=== PATIENT | female | born 1940 | race Caucasian/White ===

== ENCOUNTER 2016-04-06 09:07 | Inpatient (IN) | payer OTHER ==
[~2016-04-06] VITALS: Ht 154.9 cm; Wt 47.6 kg
[~2016-04-06 09:07] MED LIST: ALTACE5 M2 PO; ASPIRIN325 M2 PO; CLOPIDOGREL75 M1 PO; COREG6.25 M1; DIAZEPAM10 MG PO; DIAZEPAM5 M1 PO; FENOFIBRATE145 M1 PO; LASIX40 M1 PO; NITROGLYCERIN1 EAC3 TOP; NORVASC 5MG TAB5 MG PO; NOVAPLUS V0.09 MG/Ac INH; PREDNISONE 20MG20 MG PO; PREDNISONE10 MG PO; PROAIR HFA8.5 GM INH; SPIRIVA18 MCG INH; SYMBICORT 16010.2 GM INH; TOPCARE ASPIRI325 MG PO; VALIUM5 M1 PO; ZITHROMAX Z-PA250 M1 PO; ZOCOR10 M1 PO
--- NOTE | 2016-04-06 09:25 | ED GENERAL ADULT ---
History of Present Illness General Chief Complaint: General Adult Stated Complaint: COUGH X 3 DAYS Source: patient Exam Limitations: no limitations Vital Signs & Intake/Output Vital Signs & Intake/Output Vital Signs Date Time Temp Pulse Resp B/P Pulse O2 O2 Flow FiO2 Ox Delivery Rate 04/06 1951 Nasal 1.0L Cannula 04/06 1804 98.2 95 20 118/70 94 Nasal 2.0L Cannula 04/06 1730 96 Nasal 2.0L Cannula 04/06 1633 97.7 96 18 143/91 96 Nasal 2.0L Cannula 04/06 1534 96 Nasal 2.0L Cannula 04/06 1316 77 16 132/60 99 Nasal 3.0L Cannula 04/06 1230 88 04/06 1158 97.8 68 20 133/58 91 Room Air 04/06 0958 91 04/06 0930 99 Room Air 04/06 0911 97.5 69 20 123/78 92 Room Air Allergies Coded Allergies: tramadol (severe cant walk 03/21/16) amoxicillin (From Augmentin) (Severe, GI DISTRESS 03/21/16) clavulanic acid (From Augmentin) (Severe, GI DISTRESS 03/21/16) Reconcile Medications Albuterol Sulfate (Proair Hfa) 0.09 MG/Actuation ANAI 2 PUFF INH PRN ASMTHA ( Reported) Alendronate Sodium 70 MG TABLET 1 TAB PO QW OSTEOPOROSIS (Reported) in the morning, at least 30 minutes before the first food, beverage, or medication of the day Amlodipine (Norvasc) 2.5 MG TABLET 2.5 MG PO BID BP (Reported) Aspirin (Aspirin*) 81 MG TAB.CHEW 81 MG PO DAILY CARDIAC (Reported) Budesonide/Formoterol Fumara (Symbicort 160-4.5 Mcg Inhaler) 160 MCG/4.5 MCG PUF 2 PUF INH BID COPD (Reported) Calcium Carbonate/Vitamin D3 (Calcium 600 + Vit D 800 Tab) 600 MG-800 TABLET 1 TAB PO DAILY OSTEOPOROSIS (Reported) Carvedilol 6.25 MG TABLET 1 TAB PO BID BP (Reported) CLOPIDOGREL BISULFATE (Clopidogrel) 75 MG TABLET 1 TAB PO DAILY BLOOD THINNER (Reported) Diazepam 5 MG TABLET 1 TAB PO BIDP PRN ANXIETY (Reported) FENOFIBRATE NANOCRYSTALLIZED (Fenofibrate) 145 MG TABLET 145 MG PO DAILY TRIGLYERIDE (Reported) Fluticasone Propionate (Flovent Hfa) 44 MCG AER.W.ADAP 2 PUF INH BID COPD ( Reported) Furosemide 40 MG TABLET 1 TAB PO DAILY FLUID (Reported) Montelukast Sodium (Singulair) 10 MG TABLET 1 TAB PO DAILY ALLERGIES ( Reported) Nitroglycerin (Nitroglycerin Patch) 0.2 MG/HOUR PATCH.TD24 0.2 MG TOP AT BEDTIME HEART (Reported) Omeprazole 20 MG CAPSULE.DR 1 CAP PO DAILY GASTRITIS (Reported) Ramipril 5 MG CAPSULE 5 MG PO DAILY UNKNOWN (Reported) Roflumilast (Daliresp) 500 MCG TABLET 1 TAB PO DAILY COPD (Reported) Simvastatin (Zocor) 20 MG TAB 10 MG PO DAILY CHLOESTEROL (Reported) Tiotropium Star[place] (Spiriva) 18 MCG CAP.W.DEV 1 CAP INH DAILY COPD (Reported) Triage Note: PT TO ED C/O "SINUSITIS/BRONCHITIS" X 3 DAYS. C/O FEVERS AT HOME, AFEBRILE NOW. C/O NON-PRODUCTIVE COUGH. Triage Nurses Notes Reviewed? yes Onset: Abrupt Duration: hour(s): Timing: recent history HPI: 04/06/16 9:33 AM 75-year-old female presents to the emergency department complaining of cough and difficulty breathing. The patient states she does use a inhaler and has a prior history of bronchitis. She says she quit smoking one week ago. She does have a past medical history of coronary artery disease she status post bypass surgery and also vascular stenting. She denies any chest pain today. She admits to cough productive of yellow sputum. The onset of the symptoms were abrupt, the duration has been 3 days, the severity is significant as her symptoms required her to come to the emergency department for care Past History Travel History Traveled to [place] past 21 day No Medical History Any Pertinent Medical History? see below for history Neurological: restless leg syndrome EENT: hearing loss Cardiovascular: hypertension, hyperlipidemia, myocardial infarction Respiratory: COPD Gastrointestinal: constipation, diverticulitis Hepatic: SLUDGE IN GALL BLADDER Renal: NONE Musculoskeletal: NONE Psychiatric: anxiety, depression Endocrine: NONE Blood Disorders: CLOTS Cancer(s): NONE FUNERAL HOME LOCATION MANAGER/Reproductive: NONE History of MRSA: No History of VRE: No History of CDIFF: No Tetanus Vaccine: 01/10/15 Surgical History Surgical History: CABG, stents Psychosocial History Who do you live with Daughter Services at Home None What is your primary language Lithuanian Tobacco Use: Quit >30 days ago ETOH Use: denies use Illicit Drug Use: denies illicit drug use Family History Family History, If Any: MOTHER Relation not specified for: FH: CVA (cerebrovascular accident) Hx Contributory? No Review of Systems Review of Systems Constitutional: Reports: chills. EENTM: Reports: nasal congestion. Respiratory: Reports: cough, short of breath. Cardiovascular: Denies: chest pain. GI: Denies: abdominal pain. Genitourinary: Reports: no symptoms. Musculoskeletal: Reports: no symptoms. Skin: Reports: no symptoms. Neurological/Psychological: Reports: no symptoms. Hematologic/Endocrine: Reports: no symptoms. Physical Exam Physical Exam General Appearance: alert, awake, anxious, mild distress Head: atraumatic, normal appearance Eyes: Bilateral: normal appearance, PERRL, EOMI. Ears, Nose, Throat: nasal congestion Neck: normal inspection, supple Respiratory: decreased breath sounds, rhonchi, wheezing Cardiovascular: regular rate/rhythm Peripheral Pulses: 4+ radial (R), 4+ radial (L) Gastrointestinal: soft, non-tender Back: normal range of motion Extremities: normal inspection, normal range of motion Neurologic/Psych: no motor/sensory deficits, awake, alert, oriented x 3 Skin: intact, normal color, warm/dry Core Measures ACS in differential dx? No CVA/TIA Diagnosis: No Severe Sepsis Present: No Septic Shock Present: No Progress Differential Diagnoses I considered the following diagnoses in my evaluation of the patient: [ Bronchitis, pneumonia, pneumothorax, CHF, COPD exacerbation] Plan of Care: Orders Procedure Date/time Status CBC WITHOUT DIFFERENTIAL 04/07 06 Active BASIC ELECTROLYTES PLUS BUN&CR 04/07 0600 Active Heart Healthy Diet 04/06 D Active RT: Reevaluation 04/06 1836 Active RT: Evaluation 04/06 183 Active Vital Signs 04/06 174 Active Teach/Educate 04/06 174 Active Nutritional Intake, Monitor 04/06 174 Active Isolation 04/06 174 Active Intake & Output 04/06 174 Active Patient Care Conference 04/06 174 Active Activity/Ambulation 04/06 1745 Active Pathway - chart 04/06 1505 Active Admit to inpatient 04/06 1453 Active Pathway - chart 04/06 1451 Active Patient Data 04/06 1451 Active Code Status 04/06 1451 Active Admit to inpatient 04/06 1329 Active Vital Signs 04/06 1329 Active Code Status 04/06 1329 Complete COMPREHENSIVE METABOLIC PANEL 04/06 1327 Complete CBC WITHOUT DIFFERENTIAL 04/06 1327 Complete EKG 04/06 1327 Active Intake & Output 04/06 0930 Active TRC EVALUATION (GEN) 04/06 UNK Complete THERAPIST ORDERS 04/06 UNK Complete OXYGEN SETUP (GEN) 04/06 UNK Complete House Staff 04/06 UNK Active VTE Mechanical Prophylaxis 04/06 UNK Active Vital Signs 04/06 UNK Active MISSING MEDICATION FORM 04/06 UNK Active Current Medications Sig/Manohar Start time Last Medication Dose Stop Time Status Admin Aspirin 81 MG DAILY 04/07 1000 AC (Aspirin) Azithromycin 250 MG DAILY 04/07 1000 AC (Zithromax) Calcium/Vitamin D 1 TAB DAILY 04/07 1000 AC (Caltrate 600 + D) Clopidogrel Bisulfate 75 MG DAILY 04/07 1000 AC (Plavix) Enoxaparin Sodium 40 MG DAILY 04/07 1000 AC (Lovenox) Fenofibrate 145 MG DAILY 04/07 1000 AC (Tricor) Furosemide 40 MG DAILY 04/07 1000 AC (Lasix) Lisinopril 10 MG DAILY 04/07 1000 AC (Prinivil) Montelukast Sodium 10 MG DAILY 04/07 1000 AC (Singulair) Omeprazole 20 MG DAILY 04/07 1000 AC (Prilosec) Tiotropium Starford 1 PUF DAILY 04/07 1000 AC (Spiriva) Amlodipine Besylate 2.5 MG BID 04/060 AC (Norvasc) Carvedilol 6.25 MG BID 04/06 2200 AC (Coreg) Diazepam 5 MG BID 04/06 2200 AC (Valium) Methylprednisolone 40 MG Q8 04/060 AC (Solumedrol) Nitroglycerin 0.2 MG AT BEDTIME 04/06 2200 AC (Transderm Nitro 5MG (0.2MG/Hr)) Atorvastatin Calcium 5 MG 1700 04/06 1700 AC (Lipitor) Acetaminophen 650 MG Q6P PRN 04/06 1515 AC (Tylenol) Laboratory Tests 04/06/16 1351: Anion Gap 11, Estimated GFR > 60, BUN/Creatinine Ratio 21.4, Glucose 100 H, Calcium 10.2, Total Bilirubin 0.6, AST 53 H, ALT 39, Alkaline Phosphatase 66, Total Protein 7.5, Albumin 4.1, Globulin 3.4, Albumin/Globulin Ratio 1.2, CBC w Diff MAN DIFF ORDERED, RBC 4.18 L, MCV 87.5, MCH 29.0, RDW 15.3 H, MPV 9.1, Gran % 85.0 H, Lymphocytes % 10.0 L, Monocytes % 3.4, Eosinophils % 0.6, Basophils % 1.0, Absolute Granulocytes 3.2, Absolute Lymphocytes 0.4 L, Absolute Monocytes 0.1 L, Absolute Eosinophils 0, Absolute Basophils 0, Platelet Estimate VERIFIED BY SMEAR, Anisocytosis 1+, PUBS MCHC 33.1 CXR Impression: no infiltrates Initial ED EKG: nonspecific ST T wave chg Departure Departure Disposition: HOME OR SELF CARE Condition: Stable Clinical Impression Primary Impression: Bronchitis Referrals: COURTNEY NEW MD (PCP/Family) Referred to [facility] as new patient No Departure Forms: Customer Survey General Discharge Information Comments 04/06/16 1:30 PM The patient has ongoing wheezing and rhonchi. Oxygen saturation is only 90% on room air. She dropped to 88% on room air on initial presentation. She's being admitted for COPD. Chest x-ray shows no pneumonia PATIENT: SENA TAY PRESENT AGE: 75 PATIENT ACCOUNT NO: [id number] : 41 LOCATION: [facility] ORDERING PHYSICIAN: BHUPENDRA AYON DO SERVICE DATE: 04/06/16 EXAM TYPE: RAD - XRY-PORTABLE CHEST XRAY EXAMINATION: XR PORTABLE CHEST CLINICAL INFORMATION: Shortness of breath. Rule out pneumonia. COMPARISON: Chest radiograph dated 02/05/2015. CT chest dated 02/27/2016. TECHNIQUE: Portable view of the chest was obtained. FINDINGS: Sternotomy sutures appear intact. The aortic knob is severely calcified. Cardiac silhouette appears stable in size. The right lung is clear. There is a hazy opacity overlying the left lower lung. There is no pleural effusion. There is no pneumothorax. IMPRESSION: There is a hazy opacity at the left lower lung. This may correspond to the masslike opacity seen on chest CT dated 03/01/2016. Superimposed infection cannot be excluded. No pneumothorax. No pleural effusion. DICTATED BY: HYUN NEWBY MD DATE/TIME DICTATED:04/06/161039 DYE HOUSE WHEEL OPERATOR:MELITON DATE/TIME TRANSCRIBED:04/06/161039 CONFIDENTIAL, DO NOT COPY WITHOUT APPROPRIATE AUTHORIZATION. <Electronically signed in Other Vendor System> SIGNED BY: HYUN NEWBY MD 04/06/161046 Admission Note Spoke With: HUMAIRA ARNOLD MD Documentation of Exam: Documentation of any treatments & extenuating circumstances including Concerns Regarding Discharge (functional status, medication knowledge or non-compliance, living conditions, etc.) that warrant an admission rather than observation: [She needs admission for oxygen therapy, and albuterol and Atrovent nebulizers every 4 hours, IV steroids, IV antibiotics] Critical Care Note Critical Care Note Critical Care Time: non-applicable
--- NOTE | 2016-04-06 10:47 | RADIOLOGY REPORT ---
EXAMINATION: XR PORTABLE CHEST CLINICAL INFORMATION: Shortness of breath. Rule out pneumonia. COMPARISON: Chest radiograph dated 02/05/2015. CT chest dated 02/27/2016. TECHNIQUE: Portable view of the chest was obtained. FINDINGS: Sternotomy sutures appear intact. The aortic knob is severely calcified. Cardiac silhouette appears stable in size. The right lung is clear. There is a hazy opacity overlying the left lower lung. There is no pleural effusion. There is no pneumothorax. IMPRESSION: There is a hazy opacity at the left lower lung. This may correspond to the masslike opacity seen on chest CT dated 03/01/2016. Superimposed infection cannot be excluded. No pneumothorax. No pleural effusion.
[2016-04-06] MEDS ORDERED: NORVASC2.5 M1 PO (10:58)
[2016-04-06] MEDS ORDERED: ASPIRIN81 M4 PO (10:59)
[2016-04-06 14:09] LABS: ABSOLUTE BASOPHIL COUNT 0 /CUMM (0.0-0.2); ABSOLUTE EOSINOPHIL COUNT 0 /CUMM (0.0-0.7); ABSOLUTE GRANULOCYTE CT 3.2 /CUMM (1.4-6.5); ABSOLUTE LYMPH COUNT 0.4 /CUMM (1.2-3.4); ABSOLUTE MONOCYTE COUNT 0.1 /CUMM (0.10-0.60); EOSINOPHIL % 0.6 % (0-5); HEMATOCRIT 36.6 % (37-47); MEAN CORPUSCULAR HGB CONC 33.1 G/DL (33.0-37.0); MEAN CORPUSCULAR VOLUME 87.5 FL (81.0-99.0); MEAN PLATELET VOLUME 9.1 FL (7.4-10.4); PLATELET COUNT 197 /CUMM (130-400); RBC DISTRIBUTION WIDTH 15.3 % (11.5-14.5); RED BLOOD CELL CT 4.18 /CUMM (4.20-5.40); WHITE BLOOD CELL COUNT 3.8 /CUMM (4.8-10.8)
--- NOTE | 2016-04-06 14:42 | History & Physical ---
DANDY ESCOBAR,[facility] 04/06/16 1442: General Information and HPI MD Statement: I have seen and personally examined SENA TAY and documented this H&P. The patient is a 75 year old F who presented with a patient stated chief complaint of [coughing]. Source of Information: patient Exam Limitations: no limitations History of Present Illness: Patient is a 75-year-old lady who came to the ED with worsening cough during the past 3 days. Patient reports that she started to feel sick more than a week ago with feelings of sinus pressure and headache, also reported sick contacts and says 'everyone is sick around her'. 3 days ago she has started to have coughing with some phlegm but mostly a dry cough. Reports fevers and chills at the beginning but currently denies fever. Patient denies shortness of breath, sore throat, ear pain or discharge. She reports that she quit smoking about a week ago. Also that almost 2 years ago she had similar symptoms (coughing) accompanied by wheezing requiring hospitalization. Patient denies any difficulty swallowing, changes in bowel habits, changes in the urine. Patient reports history of colon resection for diverticulitis 2 years ago, she mentions that she is constipated most of the time. Of note patient has allergies to erythromycin and gets diarrhea but no anaphylactic reaction or rash. Her past medical history is also significant for femoro-iliac bypass grafts many years ago. Allergies/Medications Allergies: Coded Allergies: tramadol (severe cant walk 03/21/16) amoxicillin (From Augmentin) (Severe, GI DISTRESS 03/21/16) clavulanic acid (From Augmentin) (Severe, GI DISTRESS 03/21/16) Home Med list Albuterol Sulfate (Proair Hfa) 0.09 MG/Actuation ANAI 2 PUFF INH PRN ASMTHA ( Reported) Alendronate Sodium 70 MG TABLET 1 TAB PO QW OSTEOPOROSIS (Reported) in the morning, at least 30 minutes before the first food, beverage, or medication of the day Amlodipine (Norvasc) 2.5 MG TABLET 2.5 MG PO BID BP (Reported) Aspirin (Aspirin*) 81 MG TAB.CHEW 81 MG PO DAILY CARDIAC (Reported) Budesonide/Formoterol Fumara (Symbicort 160-4.5 Mcg Inhaler) 160 MCG/4.5 MCG PUF 2 PUF INH BID COPD (Reported) Calcium Carbonate/Vitamin D3 (Calcium 600 + Vit D 800 Tab) 600 MG-800 TABLET 1 TAB PO DAILY OSTEOPOROSIS (Reported) Carvedilol 6.25 MG TABLET 1 TAB PO BID BP (Reported) CLOPIDOGREL BISULFATE (Clopidogrel) 75 MG TABLET 1 TAB PO DAILY BLOOD THINNER (Reported) Diazepam 5 MG TABLET 1 TAB PO BIDP PRN ANXIETY (Reported) FENOFIBRATE NANOCRYSTALLIZED (Fenofibrate) 145 MG TABLET 145 MG PO DAILY TRIGLYERIDE (Reported) Fluticasone Propionate (Flovent Hfa) 44 MCG AER.W.ADAP 2 PUF INH BID COPD ( Reported) Furosemide 40 MG TABLET 1 TAB PO DAILY FLUID (Reported) Montelukast Sodium (Singulair) 10 MG TABLET 1 TAB PO DAILY ALLERGIES ( Reported) Nitroglycerin (Nitroglycerin Patch) 0.2 MG/HOUR PATCH.TD24 0.2 MG TOP AT BEDTIME HEART (Reported) Omeprazole 20 MG CAPSULE.DR 1 CAP PO DAILY GASTRITIS (Reported) Ramipril 5 MG CAPSULE 5 MG PO DAILY UNKNOWN (Reported) Roflumilast (Daliresp) 500 MCG TABLET 1 TAB PO DAILY COPD (Reported) Simvastatin (Zocor) 20 MG TAB 10 MG PO DAILY CHLOESTEROL (Reported) Tiotropium Raccoon (Spiriva) 18 MCG CAP.W.DEV 1 CAP INH DAILY COPD (Reported) Compliance With Home Meds: GOOD Past History Travel History Traveled to [place] past 21 day No Medical History Neurological: restless leg syndrome EENT: hearing loss Cardiovascular: hypertension, hyperlipidemia, myocardial infarction Respiratory: COPD Gastrointestinal: constipation, diverticulitis Hepatic: SLUDGE IN GALL BLADDER Renal: NONE Musculoskeletal: NONE Psychiatric: anxiety, depression Endocrine: NONE Blood Disorders: CLOTS Cancer(s): NONE PIE MAKER MACHINE/Reproductive: NONE History of MRSA: No History of VRE: No History of CDIFF: No Tetanus Vaccine: 01/10/15 Surgical History Surgical History: CABG, stents Past Family/Social History Family History Relations & Conditions if any MOTHER Relation not specified for: FH: CVA (cerebrovascular accident) Psychosocial History Services at Home: None ETOH Use: denies use Illicit Drug Use: denies illicit drug use Review of Systems Review of Systems Constitutional: Denies: chills, diaphoresis, fever, malaise, weakness. EENTM: Denies: visual changes, ear discharge, ear pain, ear redness, hearing changes, throat pain, throat swelling. Cardiovascular: Denies: chest pain, edema, orthopena, palpitations, peripheral edema, syncope. Respiratory: Reports: cough, sputum production. Denies: hemoptysis, orthopnea, short of breath, stridor, wheezing. GI: Denies: abdominal pain, bloating, constipation, diarrhea, distention, nausea, bloody stool, changes in stool, vomiting. Genitourinary: Denies: discharge, dysuria, frequency, hematuria, hesitation, nocturia, pain. Musculoskeletal: Denies: back pain, joint pain, joint swelling, muscle pain. Skin: Denies: dryness, erythema, jaundice, lesions, rash. Neurological/Psychological: Reports: headache. Denies: anxiety, ataxia, confusion, depressed, dementia, numbness, paresthesia, tingling, tremors, weakness. Hematologic/Endocrine: Denies: bruising, bleeding, polyuria, polydipsia. Exam & Diagnostic Data Last 24 Hrs of Vital Signs/I&O Vital Signs Date Time Temp Pulse Resp B/P Pulse O2 O2 Flow FiO2 Ox Delivery Rate 04/06 1951 Nasal 1.0L Cannula 04/06 1804 98.2 95 20 118/70 94 Nasal 2.0L Cannula 04/06 1730 96 Nasal 2.0L Cannula 04/06 1633 97.7 96 18 143/91 96 Nasal 2.0L Cannula 04/06 1534 96 Nasal 2.0L Cannula 04/06 1316 77 16 132/60 99 Nasal 3.0L Cannula 04/06 1230 88 04/06 1158 97.8 68 20 133/58 91 Room Air 04/06 0958 91 04/06 0930 99 Room Air 04/06 0911 97.5 69 20 123/78 92 Room Air Intake & Output 04/06 1600 04/06 0800 04/06 0000 Intake Total Output Total Balance Patient 47.627 kg Weight Physical Exam General Appearance Alert, Oriented X3, Cooperative, No Acute Distress Skin No Rashes, No Breakdown, No Significant Lesion HEENT Atraumatic, PERRLA, EOMI, Mucous Membr. moist/pink Neck Supple, No JVD Cardiovascular Regular Rate, Normal S1, Normal S2, 2/6 holosystolic ejection murmurbest heard at the aortic area Lungs decreased breath sounds, bilateral and diffuse rhonchi, improved after coughing Abdomen Normal Bowel Sounds, Soft, No Tenderness Neurological Normal Speech, Strength at 5/5 X4 Ext, Normal Tone, Sensation Intact, Cranial Nerves 3-12 NL Extremities No Clubbing, No Cyanosis, No Edema, Normal Pulses, No Tenderness/ Swelling Vascular Normal Pulses, Pulses Symmetrical Last 24 Hrs of Labs/Hernandez: Laboratory Tests 04/06/16 1351: Anion Gap 11, Estimated GFR > 60, BUN/Creatinine Ratio 21.4, Glucose 100 H, Calcium 10.2, Total Bilirubin 0.6, AST 53 H, ALT 39, Alkaline Phosphatase 66, Total Protein 7.5, Albumin 4.1, Globulin 3.4, Albumin/Globulin Ratio 1.2, CBC w Diff MAN DIFF ORDERED, RBC 4.18 L, MCV 87.5, MCH 29.0, RDW 15.3 H, MPV 9.1, Gran % 85.0 H, Lymphocytes % 10.0 L, Monocytes % 3.4, Eosinophils % 0.6, Basophils % 1.0, Absolute Granulocytes 3.2, Absolute Lymphocytes 0.4 L, Absolute Monocytes 0.1 L, Absolute Eosinophils 0, Absolute Basophils 0, Platelet Estimate VERIFIED BY SMEAR, Anisocytosis 1+, PUBS MCHC 33.1 Assessment/Plan Assessment: Patient is a 75-year-old 81 with past medical history of COPD, CAD status post bypass and stent placed, hypertension, hyperlipidemia, anxiety and depression who came to the ED with 3 days of worsening her coughs. Patient had similar episode 2 years ago and was hospitalized, possibly with COPD exacerbation. Vital signs in the ED included T of 97.5, AR 69, RR 20, saturating on 2 L per nasal cannula, blood pressure of 123/78 Lab findings; WBC 3.8, H&H 12.1/36.6, platelet 197, sodium 138, potassium 3.8, creatinine 0.7, mildly elevated AST of 53 Chest x-ray reported a hazy opacity at the left lower lung, corresponding to the masslike opacity seen on chest CT dated 03/01/2016. Superimposed infection could not be excluded. No pneumothorax. No pleural effusion. Problem list and plan: Acute COPD exacerbation * PO Azithromycin * IV Solu-Medrol 40 mg every 8 IV * TRC nebs * Pulmonary consult, patient routinely sees Dr. Gutierrez * Benzonatate 100 mg 3 times a day History of CAD * Aspirin 81 mg daily * Atorvastatin 5 mg daily * Carvedilol 6.25 mg twice a day by mouth * Nitroglycerin 0.2 mg History of hypertension * Amlodipine 2.5 mg by mouth twice a day * Lisinopril 10 mg daily History of hyperlipidemia * Atorvastatin 5 mg daily * Fenofibrate 145 mg daily History of GERD * Omeprazole 20 daily Pain * Mild pain pathway: Tylenol every 6 when necessary DVT prophylaxis * Subcutaneous Lovenox Diet * Heart healthy Full code As Ranked By This Provider Problem List: 1. History of COPD 2. Acute exacerbation of chronic obstructive pulmonary disease (COPD) 3. Hypertension 4. Hyperlipidemia 5. GERD (gastroesophageal reflux disease) 6. CAD (coronary artery disease) Core Measures/Miscellaneous Acute Coronary Syndrome ACS Diagnosis: No Cerebrovascular Accident CVA/TIA Diagnosis: No Congestive Heart Failure CHF Diagnosis: No Venous Thromboembolism VTE Risk Factors: Acute medical illness, Age > 40 VTE Prophylaxis Ordered Inpt: [facility]- [facility] prophylaxis d/t: No contraindications No VTE Pharm Prophylaxis d/t: No contraindications VTE Diagnosis: No VTE Type: NONE VTE Confirmed by (Test): NONE Severe Sepsis Severe Sepsis Present: No Septic Shock Septic Shock Present: No Miscellaneous Documentation Attending Case Discussed With: FAISAL ESCOBAR,[facility] Primary Care Physician: COURTNEY NEW MD Patient sees these Specialists Dr. Gutierrez (repair mechanic) Patient also has a cardiology and vascular surgeon in [place]. Level of Patient Care: General Medicine MADELIN WHITAKER MD 04/06/16 7882: Resident Review Statement Resident Statement: examined this patient, discussed with internet webmaster, agreed with internet webmaster Other Findings: This is a 75 year old woman with a PMH of CAD s/p CABG, HTN, HLD, COPD not on home oxygen, Anxiety, Depression who presents to the ED with c/o cough increased over the last 3 days. According to the patient, she started to have URI symptoms including sinus pressure and headaches. She started to have increased non- productive cough over the last 3 days. She denies any fevers, abdominal pain, urinary or bowel symptoms over the same period of time. She reports everyone around her is sick. She quit smoking 1 week ago. In the ED: Vitals: 97.8/68-77/16/132/60/99% on 3L Physical exam: Pertinent positives: Decreased breath sound bilaterally, scattered wheezing and rhonchi heard. Labs: CO2: 32 Problem List: * COPD exacerbation * CAD s/p CABG * HTN * HLD * Osteoporosis Plan: * Admit to general medicine for COPD exacerbation * Start IV solumedrol 40 Q8 and PO Azithromycin * Continue other home medications. * Pulm consult (patient sees Dr. Gutierrez on the outside) * Pain management: Tylenol PRN * DVT PPx: SubQ Lovenox * Code Status: Full Code FAISAL ESCOBAR,[facility] 04/08/16 1520: Attending MD Review Statement Attending Statement Attending MD Statement: examined this patient, discuss w/resident/PA/SPECIAL TECHNICAL OPERATIONS OFFICER, agreed w/resident/PA/SPECIAL TECHNICAL OPERATIONS OFFICER Attending Assessment/Plan: This is a 75 year old woman with a PMH of CAD s/p CABG, HTN, HLD, COPD not on home oxygen, Anxiety, Depression who presents to the ED with c/o cough and shortness of breath. She is currently requiring oxygen. However her WBC count is normal and chest x-ray is negative for pneumonia. Plan is to admit for COPD exacerbation. We will start patient on IV Solu-Medrol and IV azithromycin. Patient follows up with Dr. Gutierrez for lung issues and we will inform Dr. Gutierrez.
[2016-04-06] MEDS ORDERED: FLOVENT HFA10.6 GM INH (14:56)
[2016-04-06] MEDS ORDERED: DALIRESP500 MC1 PO (14:56)
[2016-04-06] MEDS ORDERED: SINGULAIR10 M1 PO (14:56)
[2016-04-06] MEDS ORDERED: ALENDRONATE SOD70 M2 PO (14:56)
[2016-04-06] MEDS ORDERED: OMEPRAZOLE20 M2 PO (14:57)
[2016-04-06] MEDS ORDERED: CALCIUM 600 +1 EAC7 PO (14:57)
[2016-04-06 18:04] VITALS: BP 118/70
[2016-04-06 22:32] VITALS: BP 124/60
[2016-04-07 06:09] VITALS: BP 112/52
[2016-04-07 06:38] VITALS: BP 112/52
[2016-04-07 08:08] LABS: ABSOLUTE BASOPHIL COUNT 0 /CUMM (0.0-0.2); ABSOLUTE EOSINOPHIL COUNT 0 /CUMM (0.0-0.7); ABSOLUTE GRANULOCYTE CT 3.3 /CUMM (1.4-6.5); ABSOLUTE LYMPH COUNT 0.4 /CUMM (1.2-3.4); ABSOLUTE MONOCYTE COUNT 0.1 /CUMM (0.10-0.60); BASOPHIL % 0 % (0.0-2.0); EOSINOPHIL % 0.1 % (0-5); GRANULOCYTE % 85.6 % (42.2-75.2); HEMATOCRIT 33.4 % (37-47); MEAN CORPUSCULAR HGB 29.3 PG (27.0-31.0); MEAN CORPUSCULAR HGB CONC 33.4 G/DL (33.0-37.0); MEAN CORPUSCULAR VOLUME 87.8 FL (81.0-99.0); MEAN PLATELET VOLUME 9.5 FL (7.4-10.4); PLATELET COUNT 200 /CUMM (130-400); RBC DISTRIBUTION WIDTH 14.7 % (11.5-14.5)
[2016-04-07 09:21] LABS: WHITE BLOOD CELL COUNT 3.9 /CUMM (4.8-10.8)
--- NOTE | 2016-04-07 11:12 | Admission Certification ---
Admission Certification Certification Statement - As attending physician, I certify that at the time of - admission, based on clinical presentation, severity of - symptoms, need for further diagnostic testing and - therapeutic interventions, and risk of adverse outcomes - without in-hospital treatment, in my clinical assessment, - this patient requires an acute hospital stay for a minimum - of two nights or longer. I have also considered psychsocial - factors such as support system, advanced age, financial - issues, cognitive issues, and failed out-patient treatments, - past re-admission history, safety of patient, and lack of - compliance as applicable. Specific rationale supporting this admission is: COPD exacerbation
--- NOTE | 2016-04-07 11:14 | PN- Housestaff ---
Subjective Follow-up For: COPD Subjective: Saw pt at bedside thi AM. She was sitting up in chair at bedside on . She stated that she did feel better but that she spent the whole night coughing. Review of Systems Constitutional: Denies: chills, fever, weakness. EENTM: Reports: no symptoms. Cardiovascular: Reports: no symptoms. Denies: chest pain, palpitations. Respiratory: Reports: cough, short of breath. Denies: wheezing. Gastrointestinal: Reports: no symptoms. Genitourinary: Reports: no symptoms. Musculoskeletal: Reports: no symptoms. Objective Last 24 Hrs of Vital Signs/I&O Vital Signs Date Time Temp Pulse Resp B/P Pulse O2 O2 Flow FiO2 Ox Delivery Rate 04/07 1034 112/52 04/07 0830 93 Nasal 1.0L Cannula 04/07 08 93 Nasal 1.0L Cannula 04/07 0638 98.7 63 20 112/52 91 04/07 0609 98.7 91 20 112/52 91 04/07 0000 94 Nasal 1.0L Cannula 04/06 2232 98.4 64 20 124/60 94 04/06 2111 82 120/68 04/06 2111 82 120/68 04/06 1951 Nasal 1.0L Cannula 04/06 1804 98.2 95 20 118/70 94 Nasal 2.0L Cannula 04/06 1730 96 Nasal 2.0L Cannula 04/06 1633 97.7 96 18 143/91 96 Nasal 2.0L Cannula 04/06 1534 96 Nasal 2.0L Cannula 04/06 1316 77 16 132/60 99 Nasal 3.0L Cannula 04/06 1230 88 04/06 1158 97.8 68 20 133/58 91 Room Air Intake & Output 04/07 1600 04/07 0800 04/07 0000 Intake Total 200 480 Output Total Balance 200 480 Intake, Oral 200 480 Patient 47.627 kg Weight Physical Exam General Appearance: Alert, Oriented X3, Cooperative, No Acute Distress Skin: No Rashes, No Breakdown, No Significant Lesion HEENT: Atraumatic, PERRLA, EOMI Neck: Supple Cardiovascular: Regular Rate, Normal S1, Normal S2 Lungs: crakles, but improved from yesterday. Abdomen: Soft, No Tenderness Current Medications: Current Medications Sig/Manohar Start time Last Medication Dose Route Stop Time Status Admin Acetaminophen 650 MG Q6P PRN 04/06 1515 AC PO Albuterol Sulfate 3 ML EVERY 4 HRS/AWAKE 04/06 2000 AC 04/07 INH 0745 Albuterol Sulfate 3 ML ONCE ONE 04/06 1330 DC 04/06 INH 04/06 1331 1534 Albuterol Sulfate 3 ML ONCE ONE 04/06 1215 DC 04/06 INH 04/06 1216 1230 Amlodipine Besylate 2.5 MG BID 04/06 2200 AC 04/07 PO 1036 Aspirin 81 MG DAILY 04/07 1000 AC 04/07 PO 1035 Atorvastatin Calcium 5 MG 1700 04/06 1700 AC 04/06 PO 2204 Azithromycin 250 MG DAILY 04/07 1000 AC 04/07 PO 1037 Azithromycin 0 .STK-MED ONE 04/06 1715 DC PO Azithromycin 500 MG ONCE ONE 04/06 1500 DC 04/06 PO 04/06 1501 1720 Benzonatate 100 MG TID 04/06 1600 AC 04/07 PO 1036 Calcium/Vitamin D 1 TAB DAILY 04/07 1000 AC 04/07 PO 1034 Carvedilol 6.25 MG BID 04/06 2200 AC 04/07 PO 1034 Clopidogrel Bisulfate 75 MG DAILY 04/07 1000 AC 04/07 PO 1035 Diazepam 5 MG BID 04/06 2200 AC 04/06 PO 2112 Enoxaparin Sodium 40 MG DAILY 04/07 1000 AC SC Fenofibrate 145 MG DAILY 04/07 1000 AC 04/07 PO 1036 Furosemide 40 MG DAILY 04/07 1000 AC 04/07 PO 1035 Ipratropium [place] 2.5 ML ONCE ONE 04/06 1330 DC 04/06 INH 04/06 1331 1534 Ipratropium [place] 2.5 ML ONCE ONE 04/06 1215 DC 04/06 INH 04/06 1216 1229 Lisinopril 10 MG DAILY 04/07 1000 AC 04/07 PO 1035 Methylprednisolone 40 MG Q8 04/06 2200 AC 04/07 IV 0509 Montelukast Sodium 10 MG DAILY 04/07 1000 AC 04/07 PO 1036 Nitroglycerin 0.2 MG AT BEDTIME 04/06 2200 AC 04/06 TOP 2111 Omeprazole 20 MG DAILY 04/07 1000 AC 04/07 PO 1035 Tiotropium [place] 1 PUF DAILY 04/07 1000 AC INH Last 24 Hrs of Lab/Hernandez Results Last 24 Hrs of Labs/Mics: Laboratory Tests 04/07/16 0640: Anion Gap 11, Estimated GFR > 60, BUN/Creatinine Ratio 28.6 H, CBC w Diff NO MAN DIFF REQ, RBC 3.80 L, MCV 87.8, MCH 29.3, RDW 14.7 H, MPV 9.5, Gran % 85.6 H, Lymphocytes % 11.5 L, Monocytes % 2.8, Eosinophils % 0.1, Basophils % 0 L, Absolute Granulocytes 3.3, Absolute Lymphocytes 0.4 L, Absolute Monocytes 0.1 L, Absolute Eosinophils 0, Absolute Basophils 0, PUBS MCHC 33.4 04/06/16 1351: Anion Gap 11, Estimated GFR > 60, BUN/Creatinine Ratio 21.4, Glucose 100 H, Calcium 10.2, Total Bilirubin 0.6, AST 53 H, ALT 39, Alkaline Phosphatase 66, Total Protein 7.5, Albumin 4.1, Globulin 3.4, Albumin/Globulin Ratio 1.2, CBC w Diff MAN DIFF ORDERED, RBC 4.18 L, MCV 87.5, MCH 29.0, RDW 15.3 H, MPV 9.1, Gran % 85.0 H, Lymphocytes % 10.0 L, Monocytes % 3.4, Eosinophils % 0.6, Basophils % 1.0, Absolute Granulocytes 3.2, Absolute Lymphocytes 0.4 L, Absolute Monocytes 0.1 L, Absolute Eosinophils 0, Absolute Basophils 0, Platelet Estimate VERIFIED BY SMEAR, Anisocytosis 1+, PUBS MCHC 33.1 Assessment/Plan Assessment: Patient is a 75-year-old 81 with past medical history of COPD, CAD status post bypass and stent placed, hypertension, hyperlipidemia, anxiety and depression who came to the ED with 3 days of worsening her coughs. Patient had similar episode 2 years ago and was hospitalized, possibly with COPD exacerbation. Chest x-ray reported a hazy opacity at the left lower lung, corresponding to the masslike opacity seen on chest CT dated 03/01/2016. Superimposed infection could not be excluded. No pneumothorax. No pleural effusion. Acute COPD exacerbation: Pt is satting 88-90 RA; she is currently satting on 4L O2. Current smoker * STOP PO Azithromycin * PO prednisone tomorrow. * TRC nebs * Benzonatate 100 mg 3 times a day * Pending rapid flu * Slow 20 day taper of steroids History of CAD * Aspirin 81 mg daily * Atorvastatin 5 mg daily * Carvedilol 6.25 mg twice a day by mouth * Nitroglycerin 0.2 mg History of hypertension * Amlodipine 2.5 mg by mouth twice a day * Lisinopril 10 mg daily History of hyperlipidemia * Atorvastatin 5 mg daily * Fenofibrate 145 mg daily History of GERD * Omeprazole 20 daily Subcutaneous Lovenox Heart healthy Full code Problem List: 1. History of COPD 2. Obstructive chronic bronchitis with exacerbation 3. COPD (chronic obstructive pulmonary disease) 4. CAD (coronary artery disease) Pain Ratin Pain Location: none Pain Goal: Remain pain free Pain Plan: none Tomorrow's Labs & Rationales: none
--- NOTE | 2016-04-07 11:14 | PN- Att Addend ---
Attending Addendum Attending Brief Note Patient seen and examined. Plan of care discussed with the medical team and the patient. Available lab work and radiology test reports were reviewed. Patient is sitting in chair. She continues to have coughing and the yellow phlegm production. Denies any chest pain fever chills overnight. Vital Signs Date Time Temp Pulse Resp B/P Pulse O2 O2 Flow FiO2 Ox Delivery Rate 04/07 1034 112/52 04/07 0830 93 Nasal 1.0L Cannula 04/07 0800 93 Nasal 1.0L Cannula 04/07 0638 98.7 63 20 112/52 91 04/07 0609 98.7 91 20 112/52 91 04/07 0000 94 Nasal 1.0L Cannula 04/06 2232 98.4 64 20 124/60 94 04/06 2111 82 120/68 04/06 2111 82 120/68 04/06 1951 Nasal 1.0L Cannula 04/06 1804 98.2 95 20 118/70 94 Nasal 2.0L Cannula 04/06 1730 96 Nasal 2.0L Cannula 04/06 1633 97.7 96 18 143/91 96 Nasal 2.0L Cannula 04/06 1534 96 Nasal 2.0L Cannula 04/06 1316 77 16 132/60 99 Nasal 3.0L Cannula 04/06 1230 88 04/06 1158 97.8 68 20 133/58 91 Room Air Intake & Output 04/07 1600 04/07 0800 04/07 0000 Intake Total 200 480 Output Total Balance 200 480 Intake, Oral 200 480 Patient 105 lb Weight Exam: General: Patient awake alert oriented without any distress CVS: S1 plus S2 without any murmur or gallops Chest: Few scattered crepitation without any wheeze. There is no respiratory distress. 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 alert oriented without any focal neuro deficit and follows command appropriately Extremities: No edema; no clubbing or cyanosis noted Laboratory Tests 04/07 04/06 0640 1351 Chemistry Sodium (137 - 145 mmol/L) 134 L 138 Potassium (3.5 - 5.1 mmol/L) 4.2 3.8 Chloride (98 - 107 mmol/L) 91 L 95 L Carbon Dioxide (22 - 30 mmol/L) 33 H 32 H Anion Gap (5 - 16) 11 11 BUN (7 - 17 mg/dL) 20 H 15 Creatinine (0.5 - 1.0 mg/dL) 0.7 0.7 Estimated GFR (>60 ml/min) > 60 > 60 BUN/Creatinine Ratio (7 - 25 %) 28.6 H 21.4 Glucose (65 - 99 mg/dL) 100 H Calcium (8.4 - 10.2 mg/dL) 10.2 Total Bilirubin (0.2 - 1.3 mg/dL) 0.6 AST (14 - 36 U/L) 53 H ALT (9 - 52 U/L) 39 Alkaline Phosphatase (<127 U/L) 66 Total Protein (6.3 - 8.2 g/dL) 7.5 Albumin (3.5 - 5.0 g/dL) 4.1 Globulin (1.9 - 4.2 gm/dL) 3.4 Albumin/Globulin Ratio (1.1 - 2.2 %) 1.2 Hematology CBC w Diff NO MAN DIFF REQ MAN DIFF ORDERED WBC (4.8 - 10.8 /CUMM) 3.9 L 3.8 L RBC (4.20 - 5.40 /CUMM) 3.80 L 4.18 L Hgb (12.0 - 16.0 G/DL) 11.1 L 12.1 Hct (37 - 47 %) 33.4 L 36.6 L MCV (81.0 - 99.0 FL) 87.8 87.5 MCH (27.0 - 31.0 PG) 29.3 29.0 RDW (11.5 - 14.5 %) 14.7 H 15.3 H Plt Count (130 - 400 /CUMM) 200 197 MPV (7.4 - 10.4 FL) 9.5 9.1 Gran % (42.2 - 75.2 %) 85.6 H 85.0 H Lymphocytes % (20.5 - 51.1 %) 11.5 L 10.0 L Monocytes % (1.7 - 9.3 %) 2.8 3.4 Eosinophils % (0 - 5 %) 0.1 0.6 Basophils % (0.0 - 2.0 %) 0 L 1.0 Absolute Granulocytes (1.4 - 6.5 /CUMM) 3.3 3.2 Absolute Lymphocytes (1.2 - 3.4 /CUMM) 0.4 L 0.4 L Absolute Monocytes (0.10 - 0.60 /CUMM) 0.1 L 0.1 L Absolute Eosinophils (0.0 - 0.7 /CUMM) 0 0 Absolute Basophils (0.0 - 0.2 /CUMM) 0 0 Platelet Estimate (ADEQUATE) VERIFIED BY SMEAR Anisocytosis 1+ PUBS MCHC (33.0 - 37.0 G/DL) 33.4 33.1 Assessment/ Problem List: * COPD exacerbation * CAD s/p CABG * HTN * HLD * Osteoporosis * Mild hyponatremia plan * Continue Solu-Medrol and azithromycin * Pulmonary consult with Dr. Gutierrez * Taper oxygen * Increase ambulation and check O2 saturation on ablation * Possible discharge tomorrow
--- NOTE | 2016-04-07 11:31 | Cons- Pulmonary ---
General Information and HPI Consulting Request Date of Consult: 04/07/16 Requested By: Med team History of Present Illness: Patient is a 75-year-old lady who came to the ED with worsening cough during the past 3 days. Patient reports that she started to feel sick more than a week ago with feelings of sinus pressure and headache, almost reported sick contacts ' everyone around her'. She is 3 days ago she has started to have coughing with some phlegm which has been more of a dry eyes since 2 days ago. Reports fevers and chills at the beginning but currently denies fever. Patient denies shortness of breath, sore throat, ear pain or discharge. She reports that she quit smoking about a week ago. Also that almost 2 years ago she had similar symptoms requiring hospitalization. Patient denies any difficulty swallowing, changes in bowel habits, changes in the urine. Patient reports history of colon resection for diverticulitis 2 years ago, she mentions that she is constipated most of the time. Of note patient has allergies to erythromycin and he gets diarrhea but no anaphylactic reaction or rash. Her past medical history is also significant for femerol and iliac bypass grafts. Unfortunately patient has been smoking up until recently. She also has a lung nodule/mass which appears to be rounded atelectasis in the PET scan has been unrevealing which is being monitored with serial CAT scan in the last CAT scan was done in February. She has very terminal COPD with FEV1 of 0.6 L and she is not a candidate for invasive procedures. Constitutional: Denies: chills, diaphoresis, fever, malaise, weakness. EENTM: Denies: visual changes, ear discharge, ear pain, ear redness, hearing changes, throat pain, throat swelling. Cardiovascular: Denies: chest pain, edema, orthopena, palpitations, peripheral edema, syncope. Respiratory: Reports: cough, sputum production. Denies: hemoptysis, orthopnea, short of breath, stridor, wheezing. GI: Denies: abdominal pain, bloating, constipation, diarrhea, distention, nausea, bloody stool, changes in stool, vomiting. Genitourinary: Denies: discharge, dysuria, frequency, hematuria, hesitation, nocturia, pain. Musculoskeletal: Denies: back pain, joint pain, joint swelling, muscle pain. Skin: Denies: dryness, erythema, jaundice, lesions, rash. Neurological/Psychological: Reports: headache. Denies: anxiety, ataxia, confusion, depressed, dementia, numbness, paresthesia, tingling, tremors, weakness. Hematologic/Endocrine: Denies: bruising, bleeding, polyuria, polydipsia. Allergies/Medications Allergies: Coded Allergies: tramadol (severe cant walk 03/21/16) amoxicillin (From Augmentin) (Severe, GI DISTRESS 03/21/16) clavulanic acid (From Augmentin) (Severe, GI DISTRESS 03/21/16) Home Med List: Albuterol Sulfate (Proair Hfa) 0.09 MG/Actuation ANAI 2 PUFF INH PRN ASMTHA ( Reported) Alendronate Sodium 70 MG TABLET 1 TAB PO QW OSTEOPOROSIS (Reported) in the morning, at least 30 minutes before the first food, beverage, or medication of the day Amlodipine (Norvasc) 2.5 MG TABLET 2.5 MG PO BID BP (Reported) Aspirin (Aspirin*) 81 MG TAB.CHEW 81 MG PO DAILY CARDIAC (Reported) Budesonide/Formoterol [place] (Symbicort 160-4.5 Mcg Inhaler) 160 MCG/4.5 MCG PUF 2 PUF INH BID COPD (Reported) Calcium Carbonate/Vitamin D3 (Calcium 600 + Vit D 800 Tab) 600 MG-800 TABLET 1 TAB PO DAILY OSTEOPOROSIS (Reported) Carvedilol 6.25 MG TABLET 1 TAB PO BID BP (Reported) CLOPIDOGREL BISULFATE (Clopidogrel) 75 MG TABLET 1 TAB PO DAILY BLOOD THINNER (Reported) Diazepam 5 MG TABLET 1 TAB PO BIDP PRN ANXIETY (Reported) FENOFIBRATE NANOCRYSTALLIZED (Fenofibrate) 145 MG TABLET 145 MG PO DAILY TRIGLYERIDE (Reported) Fluticasone Propionate (Flovent Hfa) 44 MCG AER.W.ADAP 2 PUF INH BID COPD ( Reported) Furosemide 40 MG TABLET 1 TAB PO DAILY FLUID (Reported) Montelukast Sodium (Singulair) 10 MG TABLET 1 TAB PO DAILY ALLERGIES ( Reported) Nitroglycerin (Nitroglycerin Patch) 0.2 MG/HOUR PATCH.TD24 0.2 MG TOP AT BEDTIME HEART (Reported) Omeprazole 20 MG CAPSULE.DR 1 CAP PO DAILY GASTRITIS (Reported) Ramipril 5 MG CAPSULE 5 MG PO DAILY UNKNOWN (Reported) Roflumilast (Daliresp) 500 MCG TABLET 1 TAB PO DAILY COPD (Reported) Simvastatin (Zocor) 20 MG TAB 10 MG PO DAILY CHLOESTEROL (Reported) Tiotropium [place] (Spiriva) 18 MCG CAP.W.DEV 1 CAP INH DAILY COPD (Reported) Review of Systems Review of Systems Constitutional: Reports: see HPI. 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 Home Services at Home: None Smoking Status: Former Smoker ETOH Use: denies use Illicit Drug Use: denies illicit drug use Exam & Diagnostic Data Last 24 Hrs of Vital Signs/I&O Vital Signs Date Time Temp Pulse Resp B/P Pulse O2 O2 Flow FiO2 Ox Delivery Rate 04/07 1034 112/52 04/07 0830 93 Nasal 1.0L Cannula 04/07 0800 93 Nasal 1.0L Cannula 04/07 0638 98.7 63 20 112/52 91 04/07 0609 98.7 91 20 112/52 91 04/07 0000 94 Nasal 1.0L Cannula 04/06 2232 98.4 64 20 124/60 94 04/06 2111 82 120/68 04/06 2111 82 120/68 04/06 1951 Nasal 1.0L Cannula 04/06 1804 98.2 95 20 118/70 94 Nasal 2.0L Cannula 04/06 1730 96 Nasal 2.0L Cannula 04/06 1633 97.7 96 18 143/91 96 Nasal 2.0L Cannula 04/06 1534 96 Nasal 2.0L Cannula 04/06 1316 77 16 132/60 99 Nasal 3.0L Cannula 04/06 1230 88 04/06 1158 97.8 68 20 133/58 91 Room Air Intake & Output 04/07 1600 04/07 0800 04/07 0000 Intake Total 200 480 Output Total Balance 200 480 Intake, Oral 200 480 Patient 105 lb Weight Last 48 Hrs of Labs/Hernandez: Laboratory Tests 04/07/16 0640: Anion Gap 11, Estimated GFR > 60, BUN/Creatinine Ratio 28.6 H, CBC w Diff NO MAN DIFF REQ, RBC 3.80 L, MCV 87.8, MCH 29.3, RDW 14.7 H, MPV 9.5, Gran % 85.6 H, Lymphocytes % 11.5 L, Monocytes % 2.8, Eosinophils % 0.1, Basophils % 0 L, Absolute Granulocytes 3.3, Absolute Lymphocytes 0.4 L, Absolute Monocytes 0.1 L, Absolute Eosinophils 0, Absolute Basophils 0, PUBS MCHC 33.4 04/06/16 1351: Anion Gap 11, Estimated GFR > 60, BUN/Creatinine Ratio 21.4, Glucose 100 H, Calcium 10.2, Total Bilirubin 0.6, AST 53 H, ALT 39, Alkaline Phosphatase 66, Total Protein 7.5, Albumin 4.1, Globulin 3.4, Albumin/Globulin Ratio 1.2, CBC w Diff MAN DIFF ORDERED, RBC 4.18 L, MCV 87.5, MCH 29.0, RDW 15.3 H, MPV 9.1, Gran % 85.0 H, Lymphocytes % 10.0 L, Monocytes % 3.4, Eosinophils % 0.6, Basophils % 1.0, Absolute Granulocytes 3.2, Absolute Lymphocytes 0.4 L, Absolute Monocytes 0.1 L, Absolute Eosinophils 0, Absolute Basophils 0, Platelet Estimate VERIFIED BY SMEAR, Anisocytosis 1+, PUBS MCHC 33.1 Assessment/Plan Impression/Plan: SIGNIFICANT DATA Her PFTs showed moderate to severe obstructive lung disease her FEV1 is 0.[address] scan done in February showed masslike opacity in the lingula which appears wedge-shaped density and a PET scan done in May did not show a significant activity and it only showed mildly elevated activity suggesting inflammatory lesion patient has declined bronchoscopy Chest x-ray appeared similar to before Bone density done showed osteoporosis White count was low at 3.8 hemoglobin 12.1. IMPRESSION This is a 75-year-old lady with very severe COPD with FEV1 of 0.8, coronary artery disease with previous CABG, hypertension, hyperlipidemia, anxiety and depression, ongoing smoking, now comes in with * Increasing cough wheezing shortness of breath suggestive of acute COPD exacerbation * Ongoing smoking * Lung mass/nodule which appears to be rounded atelectasis in the lingula malignancy could not be ruled out but patient is not a candidate for any invasive workup due to very severe COPD and this will be followed radiologically * Active smoking * Ischemic heart disease with hypertension hyperlipidemia on maximum medical therapy * GERD contributing to chronic cough * Severe osteoporosis * On and off back pain due to osteoporosis. RECOMMENDATION * Continue her current therapy * Switch her to by mouth prednisone 40 mg tomorrow * Hold Symbicort and can be resumed upon discharge * Start Augmentin 875 by mouth twice a day which would be a better antibiotic for COPD exacerbation * Flu swab * Can discontinue azithromycin * Slow steroid taper over 10 days * [id number] nebulizer therapy with albuterol only * Continue Spiriva * Patient was again counseled about smoking cessation * Long-term prognosis is guarded * Continue maximum medical therapy for ischemic heart disease Consult Acknowledgment - Thank you for your consult request.
[2016-04-07 15:41] VITALS: BP 100/58
[2016-04-07 22:33] VITALS: BP 104/60
[2016-04-08 06:43] VITALS: BP 98/57
[2016-04-08 08:03] LABS: ABSOLUTE BASOPHIL COUNT 0 /CUMM (0.0-0.2); ABSOLUTE EOSINOPHIL COUNT 0 /CUMM (0.0-0.7); ABSOLUTE MONOCYTE COUNT 0.3 /CUMM (0.10-0.60); BASOPHIL % 0 % (0.0-2.0); RBC DISTRIBUTION WIDTH 14.8 % (11.5-14.5)
[2016-04-08 08:31] LABS: ABSOLUTE GRANULOCYTE CT 8.2 /CUMM (1.4-6.5); ABSOLUTE LYMPH COUNT 0.6 /CUMM (1.2-3.4); EOSINOPHIL % 0.1 % (0-5); GRANULOCYTE % 90.1 % (42.2-75.2); HEMATOCRIT 31.3 % (37-47); MEAN CORPUSCULAR HGB 29.3 PG (27.0-31.0); MEAN CORPUSCULAR HGB CONC 33.2 G/DL (33.0-37.0); MEAN CORPUSCULAR VOLUME 88.3 FL (81.0-99.0); MEAN PLATELET VOLUME 9.4 FL (7.4-10.4); PLATELET COUNT 198 /CUMM (130-400); RED BLOOD CELL CT 3.55 /CUMM (4.20-5.40)
[2016-04-08 08:37] LABS: WHITE BLOOD CELL COUNT 9.1 /CUMM (4.8-10.8)
--- NOTE | 2016-04-08 09:55 | PN- Housestaff ---
Subjective Follow-up For: copd exacerbation Subjective: saw pt at bedside this AM. She stated that she felt better; however she is still on o2 and is not ambulating much out of room. We encouraged her to ambulate more. We will re-evaluate with ambulatory sat. Review of Systems Constitutional: Denies: chills, weakness. EENTM: Reports: no symptoms. Cardiovascular: Denies: chest pain. Respiratory: Reports: cough, short of breath. Gastrointestinal: Reports: no symptoms. Musculoskeletal: Reports: no symptoms. Skin: Reports: no symptoms. Objective Last 24 Hrs of Vital Signs/I&O Vital Signs Date Time Temp Pulse Resp B/P Pulse O2 O2 Flow FiO2 Ox Delivery Rate 04/08 0837 94 Nasal 1.0L Cannula 04/08 0643 98.5 51 20 98/57 94 04/08 0000 Nasal 1.0L Cannula 04/07 2233 97.9 60 20 104/60 95 04/07 2210 120/72 04/07 2210 120/72 04/07 1630 95 Nasal 1.0L Cannula 04/07 1600 Nasal 1.0L Cannula 04/07 1541 97.9 67 20 100/58 96 04/07 1229 92 Nasal 1.0L Cannula 04/07 1034 112/52 Intake & Output 04/08 1600 04/08 0800 04/08 0000 Intake Total 240 1200 Output Total Balance 240 1200 Intake, Oral 240 1200 Physical Exam General Appearance: Alert, Oriented X3, Cooperative, No Acute Distress Skin: No Rashes, No Breakdown, No Significant Lesion HEENT: Atraumatic, PERRLA, EOMI Neck: Supple Cardiovascular: Regular Rate, Normal S1, Normal S2 Lungs: RESTRICTED AIR MOVEMENT. Pt on O2 NC. Abdomen: Soft, No Tenderness Neurological: Normal Gait, Normal Speech, Normal Tone, Sensation Intact, Cranial Nerves 3-12 NL Extremities: Normal Pulses Current Medications: Current Medications Sig/Manohar Start time Last Medication Dose Route Stop Time Status Admin Acetaminophen 650 MG .STK-MED ONE 04/07 1606 DC PO 04/07 1607 Acetaminophen 650 MG Q6P PRN 04/06 1515 AC 04/07 PO 1608 Albuterol Sulfate 3 ML EVERY 4 HRS/AWAKE 04/06 2000 AC 04/08 INH 0836 Amlodipine Besylate 2.5 MG BID 04/06 220 AC 04/07 PO 2210 Aspirin 81 MG DAILY 04/07 1000 AC 04/07 PO 1035 Atorvastatin Calcium 5 MG 1700 04/06 1700 AC 04/07 PO 1605 Azithromycin 250 MG DAILY 04/07 1000 DC 04/07 PO 1037 Benzonatate 100 MG TID 04/06 1600 AC 04/07 PO 2210 Calcium/Vitamin D 1 TAB DAILY 04/07 1000 AC 04/07 PO 1034 Carvedilol 6.25 MG BID 04/06 2200 AC 04/07 PO 2210 Cephalexin 250 MG Q6 04/08 0800 AC PO Clopidogrel Bisulfate 75 MG DAILY 04/07 1000 AC 04/07 PO 1035 Diazepam 5 MG BID 04/06 2200 AC 04/07 PO 2208 Enoxaparin Sodium 40 MG DAILY 04/07 1000 AC SC Fenofibrate 145 MG DAILY 04/07 1000 AC 04/07 PO 1036 Furosemide 40 MG DAILY 04/07 1000 AC 04/07 PO 1035 Lisinopril 10 MG DAILY 04/07 1000 AC 04/07 PO 1035 Methylprednisolone 40 MG Q8 04/06 2200 DC 04/08 IV 04/08 0600 0553 Montelukast Sodium 10 MG DAILY 04/07 1000 AC 04/07 PO 1036 Nitroglycerin 0.2 MG AT BEDTIME 04/06 2200 AC 04/07 TOP 2234 Omeprazole 20 MG DAILY 04/07 1000 AC 04/07 PO 1035 Prednisone 40 MG DAILY 04/08 1000 AC PO 04/09 1001 Tiotropium [place] 1 PUF DAILY 04/07 1000 AC INH Last 24 Hrs of Lab/Hernandez Results Last 24 Hrs of Labs/Mics: Laboratory Tests 04/08/16 0705: Anion Gap 5, Estimated GFR > 60, BUN/Creatinine Ratio 37.5 H, CBC w Diff MAN DIFF ORDERED, RBC 3.55 L, MCV 88.3, MCH 29.3, RDW 14.8 H, MPV 9.4, Gran % 90.1 H, Lymphocytes % 6.5 L, Monocytes % 3.3, Eosinophils % 0.1, Basophils % 0 L, Absolute Granulocytes 8.2 H, Absolute Lymphocytes 0.6 L, Absolute Monocytes 0.3, Absolute Eosinophils 0, Absolute Basophils 0, Platelet Estimate ADEQUATE, Hypochromic-Microcytic 2+, Anisocytosis 1+, PUBS MCHC 33.2 Assessment/Plan Assessment: Patient is a 75-year-old 81 with past medical history of COPD, CAD status post bypass and stent placed, hypertension, hyperlipidemia, anxiety and depression who came to the ED with 3 days of worsening her coughs. Patient had similar episode 2 years ago and was hospitalized, possibly with COPD exacerbation. Chest x-ray reported a hazy opacity at the left lower lung, corresponding to the masslike opacity seen on chest CT dated 03/01/2016. Superimposed infection could not be excluded. No pneumothorax. No pleural effusion. PLAN Acute COPD exacerbation: Pt is satting 92 RA; she is currently satting on 4L O2. Will get ambulatory sat today. Possible DC. * STOP PO Azithromycin * PO prednisone with a 10 day slow taper. * TRC nebs * Benzonatate 100 mg 3 times a day * Pending rapid flu History of CAD * Aspirin 81 mg daily * Atorvastatin 5 mg daily * Carvedilol 6.25 mg twice a day by mouth * Nitroglycerin 0.2 mg History of hypertension * Amlodipine 2.5 mg by mouth twice a day * Lisinopril 10 mg daily History of hyperlipidemia * Atorvastatin 5 mg daily * Fenofibrate 145 mg daily History of GERD * Omeprazole 20 daily Subcutaneous Lovenox Heart healthy Full code Problem List: 1. CAD (coronary artery disease) 2. Acute exacerbation of chronic obstructive pulmonary disease (COPD) Pain Ratin Pain Location: none Pain Goal: Remain pain free Pain Plan: none Tomorrow's Labs & Rationales: none
--- NOTE | 2016-04-08 10:50 | PN- Att Addend ---
Attending Addendum Attending Brief Note Patient seen and examined. Plan of care discussed with the medical team and the patient. Available lab work and radiology test reports were reviewed. Patient is sitting in bed. She continues to have coughing and the yellow phlegm production. Denies any chest pain fever chills overnight. Vital Signs Date Time Temp Pulse Resp B/P Pulse O2 O2 Flow FiO2 Ox Delivery Rate 04/08 1032 98/57 04/08 0837 94 Nasal 1.0L Cannula 04/08 0643 98.5 51 20 98/57 94 04/08 0000 Nasal 1.0L Cannula 04/07 2233 97.9 60 20 104/60 95 04/07 2210 120/72 04/07 2210 120/72 04/07 1630 95 Nasal 1.0L Cannula 04/07 1600 Nasal 1.0L Cannula 04/07 1541 97.9 67 20 100/58 96 04/07 1229 92 Nasal 1.0L Cannula Intake & Output 04/08 1600 04/08 0800 04/08 0000 Intake Total 240 1200 Output Total Balance 240 1200 Intake, Oral 240 1200 Exam: General: Patient awake alert oriented without any distress CVS: S1 plus S2 without any murmur or gallops Chest: Few scattered crepitation without any wheeze. There is no respiratory distress. 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 without any focal neuro deficit and follows command appropriately Extremities: No edema; no clubbing or cyanosis noted Laboratory Tests 04/08 0705 Chemistry Sodium (137 - 145 mmol/L) 135 L Potassium (3.5 - 5.1 mmol/L) 4.5 Chloride (98 - 107 mmol/L) 95 L Carbon Dioxide (22 - 30 mmol/L) 34 H Anion Gap (5 - 16) 5 BUN (7 - 17 mg/dL) 30 H Creatinine (0.5 - 1.0 mg/dL) 0.8 Estimated GFR (>60 ml/min) > 60 BUN/Creatinine Ratio (7 - 25 %) 37.5 H Hematology CBC w Diff MAN DIFF ORDERED WBC (4.8 - 10.8 /CUMM) 9.1 RBC (4.20 - 5.40 /CUMM) 3.55 L Hgb (12.0 - 16.0 G/DL) 10.4 L Hct (37 - 47 %) 31.3 L MCV (81.0 - 99.0 FL) 88.3 MCH (27.0 - 31.0 PG) 29.3 RDW (11.5 - 14.5 %) 14.8 H Plt Count (130 - 400 /CUMM) 198 MPV (7.4 - 10.4 FL) 9.4 Gran % (42.2 - 75.2 %) 90.1 H Lymphocytes % (20.5 - 51.1 %) 6.5 L Monocytes % (1.7 - 9.3 %) 3.3 Eosinophils % (0 - 5 %) 0.1 Basophils % (0.0 - 2.0 %) 0 L Absolute Granulocytes (1.4 - 6.5 /CUMM) 8.2 H Absolute Lymphocytes (1.2 - 3.4 /CUMM) 0.6 L Absolute Monocytes (0.10 - 0.60 /CUMM) 0.3 Absolute Eosinophils (0.0 - 0.7 /CUMM) 0 Absolute Basophils (0.0 - 0.2 /CUMM) 0 Platelet Estimate (ADEQUATE) ADEQUATE Hypochromic-Microcytic 2+ Anisocytosis 1+ PUBS MCHC (33.0 - 37.0 G/DL) 33.2 Assessment/ Problem List: * COPD exacerbation * CAD s/p CABG * HTN * HLD * Osteoporosis * Mild hyponatremia plan * Continue prednisone and azithromycin; can change to Keflex if needed for longer antibiotic treatment * Taper oxygen * Increase ambulation and check O2 saturation on ambulation * No need for further lab work * Possible discharge today
--- NOTE | 2016-04-08 10:59 | PN- Pulmonary ---
Subjective HPI/Critical Care Issues: Little better No sig wheezing Patient is sitting in bed. She continues to have coughing and the yellow phlegm production. Denies any chest pain fever chills overnight. Objective Current Medications: Current Medications Sig/Manohar Start time Last Medication Dose Route Stop Time Status Admin Acetaminophen 650 MG .STK-MED ONE 04/07 1606 DC PO 04/07 1607 Acetaminophen 650 MG Q6P PRN 04/06 1515 AC 04/07 PO 1608 Albuterol Sulfate 3 ML EVERY 4 HRS/AWAKE 04/06 2000 AC 04/08 INH 0836 Amlodipine Besylate 2.5 MG BID 04/06 2200 AC 04/07 PO 2210 Aspirin 81 MG DAILY 04/07 1000 AC 04/08 PO 1034 Atorvastatin Calcium 5 MG 1700 04/06 1700 AC 04/07 PO 1605 Azithromycin 250 MG DAILY 04/07 1000 DC 04/07 PO 1037 Benzonatate 100 MG TID 04/06 1600 AC 04/08 PO 1031 Calcium/Vitamin D 1 TAB DAILY 04/07 1000 AC 04/08 PO 1034 Carvedilol 6.25 MG BID 04/06 2200 AC 04/07 PO 2210 Cephalexin 250 MG Q6 04/08 0800 AC 04/08 PO 1034 Clopidogrel Bisulfate 75 MG DAILY 04/07 1000 AC 04/08 PO 1031 Diazepam 5 MG BID 04/06 2200 AC 04/08 PO 1037 Enoxaparin Sodium 40 MG DAILY 04/07 1000 AC SC Fenofibrate 145 MG DAILY 04/07 1000 AC 04/08 PO 1034 Furosemide 40 MG DAILY 04/07 1000 AC 04/08 PO 1034 Lisinopril 10 MG DAILY 04/07 1000 AC 04/08 PO 1031 Methylprednisolone 40 MG Q8 04/06 2200 DC 04/08 IV 04/08 0600 0553 Montelukast Sodium 10 MG DAILY 04/07 1000 AC 04/08 PO 1031 Nitroglycerin 0.2 MG AT BEDTIME 04/06 2200 AC 04/07 TOP 2234 Omeprazole 20 MG DAILY 04/07 1000 AC 04/08 PO 1031 Prednisone 40 MG DAILY 04/08 1000 AC 04/08 PO 04/09 1001 1032 Tiotropium [place] 1 PUF DAILY 04/07 1000 AC INH Vital Signs & I&O Last 24 Hrs of Vitals and I&O: Vital Signs Date Time Temp Pulse Resp B/P Pulse O2 O2 Flow FiO2 Ox Delivery Rate 04/08 1032 98/57 04/08 0837 94 Nasal 1.0L Cannula 04/08 0643 98.5 51 20 98/57 94 04/08 0000 Nasal 1.0L Cannula 04/07 2233 97.9 60 20 104/60 95 04/07 2210 120/72 04/07 2210 120/72 04/07 1630 95 Nasal 1.0L Cannula 04/07 1600 Nasal 1.0L Cannula 04/07 1541 97.9 67 20 100/58 96 04/07 1229 92 Nasal 1.0L Cannula Intake & Output 04/08 1600 04/08 0800 04/08 0000 Intake Total 240 1200 Output Total Balance 240 1200 Intake, Oral 240 1200 Impression/Plan Impression/Plan Impression/Plan: SIGNIFICANT DATA Her PFTs showed moderate to severe obstructive lung disease her FEV1 is 0.[address] scan done in February showed masslike opacity in the lingula which appears wedge-shaped density and a PET scan done in May did not show a significant activity and it only showed mildly elevated activity suggesting inflammatory lesion patient has declined bronchoscopy Chest x-ray appeared similar to before Bone density done showed osteoporosis White count was low at 3.8 hemoglobin 12.1. IMPRESSION This is a 75-year-old lady with very severe COPD with FEV1 of 0.8, coronary artery disease with previous CABG, hypertension, hyperlipidemia, anxiety and depression, ongoing smoking, now comes in with * Resoving acute COPD exacerbation * Ongoing smoking * Lung mass/nodule which appears to be rounded atelectasis in the lingula malignancy could not be ruled out but patient is not a candidate for any invasive workup due to very severe COPD and this will be followed radiologically * Active smoking * Ischemic heart disease with hypertension hyperlipidemia on maximum medical therapy * GERD contributing to chronic cough * Severe osteoporosis * On and off back pain due to osteoporosis. RECOMMENDATION * Continue her current therapy * Prednisone 40 mg and taper in 8 days * Symbicort and can be resumed upon discharge * Ceftin 250 bid * Flu swab * Can discontinue azithromycin * [id number] nebulizer therapy with albuterol only * Continue Spiriva * Patient was again counseled about smoking cessation * Long-term prognosis is guarded * Continue maximum medical therapy for ischemic heart disease
[2016-04-08 14:22] VITALS: BP 108/60
[2016-04-08] MEDS ORDERED: BENZONATATE100 M1 PO (17:33)
[2016-04-08] MEDS ORDERED: PREDNISONE10 M2 PO (17:53)
--- NOTE | 2016-04-08 17:59 | Patient Discharge Instructions ---
Discharge Instructions General Discharge Information You were seen/treated for: COPD exacerbation You had these procedures: copd exacerbation treatment Special Instructions: 1. Finish your antibiotic 2. Finish your prednisone taper 3. Continue with Nebs 4. You are going home with an oxygen tank. Avoid smoking or other sources of fire as O2 is highly flammable. 5. Smoking cessation is very important for your health. Diet Continue normal diet: Yes Activity Activity Self Limited: Yes Acute Coronary Syndrome Inclusion Criteria At DC or during hospital stay patient has or had the following: ACS DIAGNOSIS No Discharge Core Measures Meds if any: Prescribed or Continued at Discharge Meds if any: NOT Prescribed or Continued at Discharge Congestive Heart Failure Inclusion Criteria At DC or during hospital stay patient has or had the following: CHF DIAGNOSIS No Discharge Core Measures Meds if any: Prescribed or Continued at Discharge Meds if any: NOT Prescribed or Continued at Discharge Cerebrovascular accident Inclusion Criteria At DC or during hospital stay patient has or had the following: CVA/TIA Diagnosis No Discharge Core Measures Meds if any: Prescribed or Continued at Discharge Meds if any: NOT Prescribed or Continued at Discharge Venous thromboembolism Inclusion Criteria VTE Diagnosis No VTE Type NONE VTE Confirmed by (Test) NONE Discharge Core Measures - Per Current guidelines, there needs to be overlap - treatment for the first 5 days of Warfarin therapy. - If discharged on Warfarin prior to 5 days of - overlap therapy, the patient will need to be - assessed for post discharge needs including - *Post discharge parental anticoagulation - *Warfarin and/or parental anticoagulation education - *Follow up date to check INR post discharge At least 5 days overlap therapy as Inpatient No Meds if any: Prescribed or Continued at Discharge Note: Overlap Therapy is Warfarin and Anticoagulant Meds if any: NOT Prescribed or Continued at Discharge
[2016-04-08 22:30] VITALS: BP 110/62
[2016-04-09 06:30] VITALS: BP 116/68
--- NOTE | 2016-04-09 08:39 | PN- Housestaff ---
See Addendum Subjective Follow-up For: copd exacerbation Subjective: Seen and examined patient. offer no complaints. Overnight events reported Review of Systems Constitutional: Denies: chills, diaphoresis, fever, malaise, weakness, unexplained weight loss. Cardiovascular: Denies: chest pain, edema, orthopena, palpitations, peripheral edema, syncope. Respiratory: Denies: cough, hemoptysis, orthopnea, short of breath, sputum production, stridor, wheezing. Objective Last 24 Hrs of Vital Signs/I&O Vital Signs Date Time Temp Pulse Resp B/P Pulse O2 O2 Flow FiO2 Ox Delivery Rate 04/09 1054 76 124/52 04/09 1050 76 124/52 04/09 1048 76 124/52 04/09 0855 92 Nasal 1.0L Cannula 04/09 0630 98.6 58 20 116/68 96 Nasal 1.0L Cannula 04/09 0400 92 Nasal 1.0L Cannula 04/09 0000 Nasal 1.0L Cannula 04/08 2306 110/62 04/08 2306 110/62 04/08 2230 98.1 63 20 110/62 92 Nasal 1.0L Cannula 04/08 1640 90 Nasal 1.0L Cannula 04/08 1600 93 Nasal 1.0L Cannula 04/08 1422 98.8 60 20 108/60 93 Intake & Output 04/09 1600 04/09 0800 04/09 0000 Intake Total 120 500 Output Total Balance 120 500 Intake, Oral 120 500 Number 0 Bowel Movements Physical Exam General Appearance: Alert, Oriented X3, Cooperative, No Acute Distress Cardiovascular: Regular Rate, Normal S1, Normal S2 Lungs: Normal Air Movement Assessment/Plan Assessment: 75-year-old 81 woman with past medical history of COPD, CAD status post bypass and stent placed, hypertension, hyperlipidemia, anxiety and depression who came to the ED with 3 days of worsening her coughs. PLAN Acute COPD exacerbation: 92% on 1L * completed course Azithromycin * PO prednisone with a 10 day slow taper. * TRC nebs * Benzonatate 100 mg 3 times a day * Pending rapid flu Taper oxygen will also need to ambulate patient to see if she requires any home oxygen History of CAD * Aspirin 81 mg daily * Atorvastatin 5 mg daily * Carvedilol 6.25 mg twice a day by mouth * Nitroglycerin 0.2 mg History of hypertension * Amlodipine 2.5 mg by mouth twice a day * Lisinopril 10 mg daily History of hyperlipidemia * Atorvastatin 5 mg daily * Fenofibrate 145 mg daily History of GERD * Omeprazole 20 daily Subcutaneous Lovenox Heart healthy Full code Problem List: 1. COPD (chronic obstructive pulmonary disease) 2. CAD (coronary artery disease) 3. Hypertension Pain Ratin Pain Location: Not applicable Pain Goal: Pain 4 or less Pain Plan: Current regimen Tomorrow's Labs & Rationales: None required
[2016-04-09 13:46] VITALS: BP 110/70
[2016-04-09 22:33] VITALS: BP 120/76
[2016-04-09 22:34] VITALS: BP 110/60
[2016-04-10 07:25] VITALS: BP 120/68
--- NOTE | 2016-04-10 10:28 | PN- Att Addend ---
Attending Addendum Attending Brief Note 75-year-old female with past medical history significant for COPD not on home oxygen, coronary artery disease status post bypass and PCI, hypertension, hyperlipidemia, anxiety and depression was admitted for worsening shortness of breath and cough.Patient was seen and examined on the bedside this morning and reported that she is not getting better and is difficult for her to take off of oxygen.We will do a walk test today again to look for oxygen saturation and to observe if she needs home oxygen. Meanwhile will continue on prednisone taper, TRC nebs, continue her home medications and complete the course of antibiotics. Patient would follow-up with her bill peddler as an outpatient.
--- NOTE | 2016-04-10 12:22 | PN- Housestaff ---
Subjective Follow-up For: COPD Subjective: Saw patient at bedside this a.m. She stated she felt much better. She was satting in high 90s on 1 L O2. We will ambulate her and if her saturation is adequate she could go home today Review of Systems Constitutional: Reports: no symptoms. Denies: fever. EENTM: Reports: no symptoms. Cardiovascular: Reports: no symptoms. Respiratory: Denies: short of breath. Gastrointestinal: Reports: no symptoms. Genitourinary: Reports: no symptoms. Musculoskeletal: Reports: no symptoms. Skin: Reports: no symptoms. Objective Last 24 Hrs of Vital Signs/I&O Vital Signs Date Time Temp Pulse Resp B/P Pulse O2 O2 Flow FiO2 Ox Delivery Rate 04/10 1000 128/56 04/10 0959 128/56 04/10 0958 128/56 04/10 0826 95 Nasal 1.0L Cannula 04/10 0800 Nasal 1.0L Cannula 04/10 0725 98.5 59 20 120/68 95 Nasal Cannula 04/10 0056 Nasal 1.0L Cannula 04/10 0000 Nasal 1.0L Cannula 04/09 2240 69 108/42 04/09 2234 97.9 58 20 110/60 97 04/09 2228 110/70 04/09 2017 94 Nasal 1.0L Cannula 04/09 1710 88 Room Air 04/09 1346 98.4 61 20 110/70 92 Room Air Intake & Output 04/10 1600 04/10 0800 04/10 0000 Intake Total 100 100 Output Total Balance 100 100 Intake, Oral 100 100 Physical Exam General Appearance: Alert, Oriented X3, Cooperative, No Acute Distress Skin: No Rashes, No Breakdown HEENT: Atraumatic, PERRLA, EOMI Neck: Supple Cardiovascular: Regular Rate Lungs: DIFFUSE CRACKLES. pT STILL HAS EXPIRATORY WHEEZES. nO RHONCHI. Abdomen: Soft, No Tenderness Neurological: Normal Speech, Cranial Nerves 3-12 NL Current Medications: Current Medications Sig/Manohar Start time Last Medication Dose Route Stop Time Status Admin Acetaminophen 650 MG Q6P PRN 04/06 1515 AC 04/07 PO 1608 Albuterol Sulfate 3 ML EVERY 4 HRS/AWAKE 04/06 2000 AC 04/10 INH 1204 Amlodipine Besylate 2.5 MG BID 04/06 2200 AC 04/10 PO 0959 Aspirin 81 MG DAILY 04/07 1000 AC 04/10 PO 1000 Atorvastatin Calcium 5 MG 1700 04/06 1700 AC 04/09 PO 1724 Benzonatate 100 MG TID 04/06 1600 AC 04/10 PO 0957 Calcium/Vitamin D 1 TAB DAILY 04/07 1000 AC 04/10 PO 1000 Carvedilol 6.25 MG BID 04/06 2200 AC 04/10 PO 1000 Cefuroxime Sodium 250 MG Q12 04/08 2200 AC 04/10 PO 1000 Clopidogrel Bisulfate 75 MG DAILY 04/07 1000 AC 04/10 PO 0959 Diazepam 5 MG BID 04/06 2200 AC 04/10 PO 0957 Enoxaparin Sodium 40 MG DAILY 04/07 1000 AC SC Fenofibrate 145 MG DAILY 04/07 1000 AC 04/10 PO 0957 Furosemide 40 MG DAILY 04/07 1000 AC 04/10 PO 0959 Lisinopril 10 MG DAILY 04/07 1000 AC 04/10 PO 0958 Montelukast Sodium 10 MG DAILY 04/07 1000 AC 04/10 PO 0958 Nitroglycerin 0.2 MG AT BEDTIME 04/06 2200 AC 04/09 TOP 2240 Omeprazole 20 MG DAILY 04/07 1000 AC 04/10 PO 0959 Prednisone 20 MG DAILY 04/10 1000 AC 04/10 PO 04/11 2100 0959 Prednisone 40 MG DAILY 04/08 1000 DC 04/09 PO 04/09 2100 1051 Tiotropium [place] 1 PUF 04/08 AC 04/09 INH 2238 Assessment/Plan Assessment: 75-year-old 81 woman with past medical history of COPD, CAD status post bypass and stent placed, hypertension, hyperlipidemia, anxiety and depression who came to the ED with 3 days of worsening her coughs. PLAN Acute COPD exacerbation: 92% on 1L. saw patient at bedside this a.m. She was saturating well on 1 L O2. We'll ambulate her and if his saturations remained above 90 she can go home without oxygen. However she if she does require oxygen she will most likely be discharged tomorrow. * completed course Azithromycin * PO prednisone with a 10 day slow taper. * TRC nebs * Benzonatate 100 mg 3 times a day * Pending rapid flu History of CAD * Aspirin 81 mg daily * Atorvastatin 5 mg daily * Carvedilol 6.25 mg twice a day by mouth * Nitroglycerin 0.2 mg History of hypertension * Amlodipine 2.5 mg by mouth twice a day * Lisinopril 10 mg daily History of hyperlipidemia * Atorvastatin 5 mg daily * Fenofibrate 145 mg daily History of GERD * Omeprazole 20 daily Subcutaneous Lovenox Heart healthy Full code Problem List: 1. CAD (coronary artery disease) 2. History of COPD Pain Ratin Pain Location: none Pain Goal: Remain pain free Pain Plan: none Tomorrow's Labs & Rationales: none
[2016-04-10] MEDS ORDERED: CEFUROXIME250 M1 PO (13:36)
[2016-04-10 15:33] VITALS: BP 106/52
[2016-04-10 21:32] VITALS: BP 90/48
[2016-04-10 22:47] VITALS: BP 102/50
[2016-04-11 02:00] VITALS: BP 112/44
[2016-04-11 06:37] VITALS: BP 116/70
--- NOTE | 2016-04-11 11:45 | PN- Att Addend ---
Attending Addendum Attending Brief Note 75-year-old female with past medical history significant for COPD not on home oxygen, coronary artery disease status post bypass and PCI, hypertension, hyperlipidemia, anxiety and depression was admitted for worsening shortness of breath and cough.Patient was seen and examined on the bedside this morning and reported that she does not want to be discharged on oxygen. Meanwhile will continue on prednisone taper, TRC nebs, continue her home medications and complete the course of antibiotics. Patient would follow-up with her conference reservationist as an outpatient. Since that she is dropping her O2 sat on ambulation, will discharge her on home oxygen.
--- NOTE | 2016-04-11 14:09 | PN- Housestaff ---
Subjective Follow-up For: COPD Subjective: Saw patient at bedside this a.m. This is the best I have seen her. She was satting well on room air. Previously she always been on nasal cannula. She reported that she been able to ambulate back and forth from the kitchen without any shortness of breath. However, per respiratory therapist her sats do drop down to 87 when she ambulates without oxygen. She'll likely require O2 tank to go home. Likely discharge today Review of Systems Constitutional: Denies: chills, fever, malaise. EENTM: Reports: no symptoms. Cardiovascular: Denies: edema, orthopena, palpitations. Respiratory: Denies: cough, orthopnea. Gastrointestinal: Denies: abdominal pain, distention, melena, nausea. Genitourinary: Denies: dysuria, frequency, hesitation. Musculoskeletal: Denies: back pain, joint pain. Skin: Reports: no symptoms. Objective Last 24 Hrs of Vital Signs/I&O Vital Signs Date Time Temp Pulse Resp B/P Pulse O2 O2 Flow FiO2 Ox Delivery Rate 04/11 1357 91 Room Air 04/11 1006 64 121/64 04/11 1006 64 121/64 04/11 0819 90 Room Air 04/11 0637 97.6 57 20 116/70 91 Nasal Cannula 04/11 0200 112/44 04/11 0105 93 Room Air 04/11 0000 Room Air 04/10 2247 97.8 66 24 102/50 92 Room Air 04/10 2132 90/48 04/10 2120 90/48 04/10 2119 9048 04/10 1630 91 Room Air 04/10 1600 95 Room Air 04/10 1533 98.4 24 106/52 Intake & Output 04/11 1600 04/11 0800 04/11 0000 Intake Total 300 Output Total Balance 300 Intake, Oral 300 Patient 47.627 kg Weight Physical Exam General Appearance: Alert, Oriented X3, Cooperative, No Acute Distress Skin: No Rashes, No Breakdown HEENT: Atraumatic, PERRLA, EOMI Neck: Supple Cardiovascular: Regular Rate, Normal S1, Normal S2 Lungs: Clear to Auscultation, Normal Air Movement Abdomen: Soft, No Tenderness Neurological: Normal Speech, Normal Tone Extremities: No Cyanosis Current Medications: Current Medications Sig/Manohar Start time Last Medication Dose Route Stop Time Status Admin Acetaminophen 650 MG Q6P PRN 04/06 1515 AC 04/07 PO 1608 Albuterol Sulfate 3 ML EVERY 4 HRS/AWAKE 04/06 2000 AC 04/11 INH 1106 Amlodipine Besylate 2.5 MG BID 04/060 AC 04/11 PO 1006 Aspirin 81 MG DAILY 04/07 1000 AC 04/11 PO 0958 Atorvastatin Calcium 5 MG 1700 04/06 1700 AC 04/10 PO 1642 Benzonatate 100 MG TID 04/06 1600 AC 04/11 PO 1009 Calcium/Vitamin D 1 TAB DAILY 04/07 1000 AC 04/11 PO 1011 Carvedilol 6.25 MG BID 04/06 2200 AC 04/11 PO 1006 Cefuroxime Sodium 250 MG Q12 04/08 2200 AC 04/11 PO 1011 Clopidogrel Bisulfate 75 MG DAILY 04/07 1000 AC 04/11 PO 1005 Diazepam 5 MG BID 04/06 2200 AC 04/11 PO 0950 Enoxaparin Sodium 40 MG DAILY 04/07 1000 AC SC Fenofibrate 145 MG DAILY 04/07 1000 AC 04/11 PO 1005 Furosemide 40 MG DAILY 04/07 1000 AC 04/11 PO 1010 Lisinopril 10 MG DAILY 04/07 1000 AC 04/11 PO 0956 Montelukast Sodium 10 MG DAILY 04/07 1000 AC 04/11 PO 1007 Nitroglycerin 0.2 MG AT BEDTIME 04/060 AC 04/10 TOP 2121 Omeprazole 20 MG DAILY 04/07 1000 AC 04/11 PO 1012 Patient Medication 1 ED .[facility] 04/11 1406 ID Teaching ED 04/11 1407 Prednisone 20 MG DAILY 04/10 1000 AC 04/11 PO 04/11 2100 1010 Tiotropium [place] 1 PUF 04/08 220 AC 04/10 INH 2122 Assessment/Plan Assessment: 75-year-old 81 woman with past medical history of COPD, CAD status post bypass and stent placed, hypertension, hyperlipidemia, anxiety and depression who came to the ED with 3 days of worsening her coughs. PLAN Acute COPD exacerbation: Saw patient at bedside this a.m; she was saturating well on RA. We'll ambulate her and if his saturations remained above 90 she can go home without oxygen. However she if she does require oxygen she will most likely be discharged today * completed course Azithromycin * PO prednisone with a 10 day slow taper. * TRC nebs * Benzonatate 100 mg 3 times a day * Pending rapid flu History of CAD * Aspirin 81 mg daily * Atorvastatin 5 mg daily * Carvedilol 6.25 mg twice a day by mouth * Nitroglycerin 0.2 mg History of hypertension * Amlodipine 2.5 mg by mouth twice a day * Lisinopril 10 mg daily History of hyperlipidemia * Atorvastatin 5 mg daily * Fenofibrate 145 mg daily History of GERD * Omeprazole 20 daily Subcutaneous Lovenox Heart healthy Full code Problem List: 1. GERD (gastroesophageal reflux disease) 2. Acute exacerbation of chronic obstructive pulmonary disease (COPD) 3. History of COPD Pain Ratin Pain Location: none Pain Goal: Remain pain free Pain Plan: none Tomorrow's Labs & Rationales: none
[2016-04-11 15:28] VITALS: BP 98/58
--- NOTE | 2016-04-12 12:26 | Discharge Summary ---
Visit Information Visit Dates Admission Date: 04/06/16 Discharge Date: 04/11/16 Hospital Course Course Attending Physician: KARIN FOURNIER MD Primary Care Physician: COURTNEY NEW MD Consulting Request: Consulting Specialty: Pulmonary Disease Hospital Course: 75-year-old woman with past medical history of COPD, CAD status post bypass and stent placed, hypertension, hyperlipidemia, anxiety and depression who came to the ED with 3 days of worsening her cough. Pt was seen for the following problems: Acute COPD exacerbation: Pt came in withe cough, SOB and dyspnea. She was adamant that she did not want to go home with oxygen tank but when we ambulated her she de-satted to 85-86% on RA. She sats above ninety on room air while resting. 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 We obtained sat via ear probe. We educated her on smoking cessation as well. She will go out on O2 tank for ambulation. * completed course Azithromycin * PO prednisone with a 10 day slow taper. * TRC nebs * Benzonatate 100 mg 3 times a day PRN cough * Consider f/u CXR on outpatient basis regarding hazy opacity. * Follow up with Dr. Gutierrez outpt. History of CAD: Chronic and stable. * Aspirin 81 mg daily * Atorvastatin 5 mg daily * Carvedilol 6.25 mg twice a day by mouth * Nitroglycerin 0.2 mg History of hypertension: Chronic and stable. * Amlodipine 2.5 mg by mouth twice a day * Lisinopril 10 mg daily History of hyperlipidemia: Chronic and stable. * Atorvastatin 5 mg daily * Fenofibrate 145 mg daily History of GERD: Chronic and stable. * Omeprazole 20 daily Allergies: Coded Allergies: tramadol (severe cant walk 03/21/16) amoxicillin (From Augmentin) (Severe, GI DISTRESS 03/21/16) clavulanic acid (From Augmentin) (Severe, GI DISTRESS 03/21/16) Pertinent Lab Results: CXR on 04/06 IMPRESSION: There is a hazy opacity at the left lower lung. This may correspond to the masslike opacity seen on chest CT dated 03/01/2016. Superimposed infection cannot be excluded. No pneumothorax. No pleural effusion. Disposition Summary Disposition Principal Diagnosis: COPD exacerbation Additional Diagnosis: CAD Discharge Disposition: home or self care Discharge Instructions General Discharge Information Code Status: Full Code Patient's Diet: Heart Healthy Patient's Activity: as tolerated Follow-Up Instructions/Appts: as tolerated Medications at Discharge Discharge Medications: Continue taking these medications: Clopidogrel Bisulfate (Clopidogrel) 75 MG TABLET Comments: Last Taken: 04/11/16 Time: 10 AM Tiotropium [place] (Spiriva) 18 MCG CAP.W.DEV Comments: Last Taken: LAST TAKEN 04/10/16 Time: 10 PM Budesonide/Formoterol Fumarate (Symbicort 160-4.5 Mcg Inhaler) 160 MCG-4.5 MCG/ ACTUATION HFA.AER.AD 2 Puff Inhale through mouth TWICE DAILY Comments: NOT TAKEN IN HOSPITAL Simvastatin (Zocor*) 10 MG TABLET Comments: ATORVASTATIN (LIPITOR) 5 MG PO LAST TAKEN 04/10/16 AT 1700 Fenofibrate Nanocrystallized (Fenofibrate) 145 MG TABLET 1 Tablet ORAL DAILY Comments: Last Taken: 04/11/16 Time: 10 AM Carvedilol (Coreg) 6.25 MG TABLET Comments: Last Taken: 04/11/16 Time: 10 AM Furosemide (Lasix) 40 MG TABLET Comments: Last Taken: 04/11/16 Time: 10 AM Ramipril (Altace) 5 MG CAPSULE Comments: LISINOPRIL LAST TAKEN 04/11/16 AT 10 AM Nitroglycerin (Nitroglycerin Patch) 0.2 MG/HOUR PATCH.TD24 Comments: Last Taken: 04/10/16 Time: 10 PM Albuterol Sulfate (Proair Hfa) 0.09 MG/Actuation ANAI 2 PUFF Inhale through mouth as needed for ASMTHA Qty = 85 Diazepam (Diazepam) 5 MG TABLET 1 Tablet ORAL 2 x Daily as needed as needed for ANXIETY Qty = 60 Comments: Last Taken: 04/11/16 Time: 10 AM Amlodipine (Norvasc) 2.5 MG TABLET 2.5 Milligram ORAL TWICE DAILY Comments: Last Taken: 04/11/16 Time: 10 AM Aspirin (Aspirin*) 81 MG TAB.CHEW 81 Milligram ORAL DAILY Comments: Last Taken: 04/11/16 Time: 10 AM Fluticasone Propionate (Flovent Hfa) 44 MCG AER.W.ADAP 2 Puff Inhale through mouth TWICE DAILY Comments: NOT TAKEN IN HOSPITAL Montelukast Sodium (Singulair) 10 MG TABLET 1 Tablet ORAL DAILY Comments: Last Taken: 04/11/16 Time: 10 AM Roflumilast (Daliresp) 500 MCG TABLET 1 Tablet ORAL DAILY Comments: NOT TAKEN IN HOSPITAL Alendronate Sodium (Alendronate Sodium) 70 MG TABLET 1 Tablet ORAL Once a Week Instructions: in the morning, at least 30 minutes before the first food, beverage, or medication of the day Comments: NOT TAKEN IN HOSPITAL Calcium Carbonate/Vitamin D3 (Calcium 600 + Vit D 800 Tab) 600 MG-800 TABLET 1 Tablet ORAL DAILY Comments: Last Taken: 04/11/16 Time: 10 AM Omeprazole (Omeprazole) 20 MG CAPSULE.DR 1 Capsule ORAL DAILY Comments: Last Taken: 04/11/16 Time: 10 AM Start taking the following new medications: Benzonatate (Benzonatate) 100 MG CAPSULE 100 Milligram ORAL THREE TIMES DAILY Days = 5 No Refills Comments: Last Taken: 04/11/15 Time: 10 AM Prednisone (Prednisone) 10 MG TABLET 1 Tablet ORAL SEE INSTUC. Qty = 4 No Refills Instructions: On Take 04/12-04/13 20 MG 2TABS 04/14-04/15 10 MG 1TAB 04/16-04/17 05 MG .5TAB Then Stop Comments: Last Taken: 20 MG PO LAST TAKEN 04/11/16 Time: 10 AM Copies To: COURTNEY NEW MD
== END 2016-04-11 15:30 | DRG 191 ==
LOC: ERH 09:07 → 2NA 13:29 → ERHI 13:29 → 2NA 13:29 → ERHI 15:03 → 2NA 17:35
PROVIDERS: Emergency Medicine; Internal Medicine; Student in an Organized Health Care Education/Training Program; ADMIT Internal Medicine
DX: J44.1 Chronic obstructive pulmonary disease with (acute) exacerbation (principal); E87.1 Hypo-osmolality and hyponatremia; C34.10 Malignant neoplasm of upper lobe, unspecified bronchus or lung; I11.9 Hypertensive heart disease without heart failure; F17.210 Nicotine dependence, cigarettes, uncomplicated; M81.0 Age-related osteoporosis without current pathological fracture; I25.10 Atherosclerotic heart disease of native coronary artery without angina pectoris; Z95.1 Presence of aortocoronary bypass graft; Z95.5 Presence of coronary angioplasty implant and graft; E78.5 Hyperlipidemia, unspecified; K21.9 Gastro-esophageal reflux disease without esophagitis
CPT/HCPCS: 2NAP; 36415; 82436; 87804; 87804-59; 93005; 93010; J0456; J1650; J2920; J3490

== ENCOUNTER 2016-06-03 04:50 | Emergency (ER) | payer OTHER ==
[~2016-06-03] VITALS: Ht 154.9 cm; Wt 49.9 kg
[~2016-06-03 04:50] MED LIST changes: +ALENDRONATE SOD70 M2 PO; +ASPIRIN81 M4 PO; +BENZONATATE100 M1 PO; +CALCIUM 600 +1 EAC7 PO; +CEFUROXIME250 M1 PO; +DALIRESP500 MC1 PO; +FLOVENT HFA10.6 GM INH; +NORVASC2.5 M1 PO; +OMEPRAZOLE20 M2 PO; +PREDNISONE10 M2 PO; +SINGULAIR10 M1 PO
--- NOTE | 2016-06-03 06:14 | CT SCAN REPORT ---
EXAMINATION: CT HEAD WITHOUT CONTRAST CLINICAL INFORMATION: Trauma. Head strike. COMPARISON: None TECHNIQUE: Contiguous axial imaging was performed from the skull base to vertex without intravenous administration of contrast. FINDINGS: There is no evidence of acute intracranial hemorrhage or territorial infarction. No abnormal mass effect or midline shift is seen. Carranza to white matter differentiation is well preserved. No extra-axial fluid collections are identified. There is atrophy with prominence of the ventricles and the sulci and hypodensity of the periventricular white matter due to chronic small vessel ischemic disease. There is vascular calcifications of the internal carotid arteries bilaterally. No acute soft tissue hematoma that is hyperdense over the left superior orbital rim and frontal bone. No skull fracture. . The mastoid air cells and visualized portions of the paranasal sinuses are well aerated. IMPRESSION: No acute intracranial pathology. Left frontal scalp hematoma.
--- NOTE | 2016-06-03 06:17 | CT SCAN REPORT ---
EXAMINATION: CT MAXILLOFACIAL WITHOUT CONTRAST CLINICAL INFORMATION: Head strike. COMPARISON: None TECHNIQUE: Multidetector helical imaging was performed in the axial plane with generation of coronal and sagittal reformatted images. FINDINGS: Hyperdense hematoma over the left superior orbit and frontal bone. No fracture of the orbits or facial bones. Paranasal sinuses are normally aerated. Mastoid air cells and middle ear cavities are normally aerated. IMPRESSION: Left frontal scalp hematoma. No fracture of the facial bones.
--- NOTE | 2016-06-03 06:21 | CT SCAN REPORT ---
EXAMINATION: CT CERVICAL SPINE WITHOUT CONTRAST CLINICAL INFORMATION: Fall. COMPARISON: None TECHNIQUE: Axial images obtained through cervical spine. Coronal and sagittal reformatted images performed at CT scanner FINDINGS: No fracture. No subluxation. No prevertebral soft tissue swelling. There is multilevel degenerative spondylosis. There is fusion of the right-sided C2-C3 facet with significant joint narrowing and spurring of the right C3-C4 facet. Mild degenerative facet joint arthrosis of the facet joints throughout cervical spine bilaterally. Marked disc height narrowing C4-C5 with spurs of the vertebrae anteriorly and posteriorly. There is also significant narrowing at C5-C6 and C6-C7 disc space with smaller endplate spurs of the vertebrae. Atherosclerotic vascular wall calcifications of the carotids and of the thoracic aortic arch. IMPRESSION: 1. No acute abnormality. 2. Multilevel degenerative spondylosis of cervical spine.
--- NOTE | 2016-06-03 06:23 | CT SCAN REPORT ---
EXAMINATION: CT LOWER EXTREMITY WITHOUT CONTRAST, left hip CLINICAL INFORMATION: Pain left hip after fall. COMPARISON: None TECHNIQUE: Axial images obtained through the left hip. Coronal and sagittal reformatted images are performed at CT scanner DLP: 936.34 mGy-cm FINDINGS: There is a slightly comminuted and displaced fracture through the base of the greater tuberosity of the femur. No fracture of the femoral neck or shaft. Femoral head remains seated in acetabulum. The visualized portions of left hip and acetabulum are intact. IMPRESSION: Slightly displaced comminuted fractures through the greater tuberosity of left femur.
--- NOTE | 2016-06-03 06:37 | ED MVC/FALL/TRAUMA COMPLAINT ---
History of Present Illness General Chief Complaint: Fall Stated Complaint: BIBA S/P FALL, +THINNERS/HIT HEAD, -LOC Source: patient, family, old records, EMS Exam Limitations: no limitations Vital Signs & Intake/Output Vital Signs & Intake/Output Vital Signs Date Time Temp Pulse Resp B/P Pulse O2 O2 Flow FiO2 Ox Delivery Rate 06/03 1251 98.5 77 20 162/70 90 Room Air 06/03 1147 Room Air 06/03 1128 Room Air 06/03 1024 96.8 75 18 167/74 95 Room Air 06/03 0504 98.3 56 16 159/96 96 Room Air Triage Note: 75YO FEMALE TO RM 8 VIA AMB FROM HOME SP FALL. A,A,O ON ARRIVAL. C COLLAR IN PLACE. PT STTES SHE "WAS OOB AND LEANED DOWN TO FIX HER SOCK AND FELL OVER" DENIES LOC, ADMITS TO DRINKING 2 VODKA DRINKS LAST AGUSTÍN. LG HEMATOMA PRESENT OVER L EYEBROW. Triage Nurses Notes Reviewed? yes Onset: Just prior to arrival Duration: minute(s):, constant, continues in ED Timing: single episode today Severity: severe Injuries/Fall Location: head, face, lower extremity Method of Injury: direct blow, fall Loss of Consciousness: no loss of consciousness Modifying Factors: Improves With: rest. Worsens With: palpation. Associated Symptoms: trouble walking LMP (ages 10-50): post menopausal : No Patient currently breastfeeds: No HPI: Prior to admission patient was trying to put her sock on fell to the floor striking the left side of her face and hip complaining of pain to these areas. There was no loss consciousness fever chills nausea vomiting diarrhea abdominal pain chest pain shortness of breath headache dysuria rash (DICK ESCOBAR,LEONARDO) Allergies Coded Allergies: tramadol (Severe, severe cant walk 06/03/16) amoxicillin (From Augmentin) (Intermediate, GI DISTRESS 06/03/16) clavulanic acid (From Augmentin) (Intermediate, GI DISTRESS 06/03/16) Reconcile Medications Albuterol Sulfate (Proair Hfa) 90 MCG HFA.AER.AD 2 PUF INH Q4-6 PRN PRN ASTHMA (Reported) Alendronate Sodium 70 MG TABLET 1 TAB PO QW OSTEOPOROSIS (Reported) in the morning, at least 30 minutes before the first food, beverage, or medication of the day Amlodipine (Norvasc) 2.5 MG TABLET 2.5 MG PO BID BP (Reported) Aspirin (Aspirin*) 81 MG TAB.CHEW 81 MG PO DAILY CARDIAC (Reported) Budesonide/Formoterol Fumarate (Symbicort 160-4.5 Mcg Inhaler) 160 MCG-4.5 MCG/ ACTUATION HFA.AER.AD 2 PUF INH BID COPD (Reported) Calcium Carbonate/Vitamin D3 (Calcium 600 + Vit D 800 Tab) 600 MG-800 TABLET 1 TAB PO DAILY OSTEOPOROSIS (Reported) Carvedilol (Coreg) 6.25 MG TABLET HIGH BLOOD PRESSURE (Reported) Clopidogrel Bisulfate (Clopidogrel) 75 MG TABLET 1 TAB PO DAILY BLOOD THINNER (Reported) Diazepam 5 MG TABLET 1 TAB PO BIDP PRN ANXIETY (Reported) Fenofibrate Nanocrystallized (Fenofibrate) 145 MG TABLET 1 TAB PO DAILY HIGH CHOLESTROL (Reported) Fluticasone Propionate (Flovent Hfa) 44 MCG AER.W.ADAP 2 PUF INH BID COPD ( Reported) Furosemide (Lasix) 40 MG TABLET 1 TAB PO DAILY WATER PILL (Reported) Montelukast Sodium (Singulair) 10 MG TABLET 1 TAB PO DAILY ALLERGIES ( Reported) Nitroglycerin (Nitroglycerin Patch) 0.2 MG/HOUR PATCH.TD24 1 PAT TOP DAILY CP (Reported) Omeprazole 20 MG CAPSULE.DR 1 CAP PO DAILY GASTRITIS (Reported) Ramipril (Altace) 5 MG CAPSULE 1 CAP PO DAILY HIGH BLOOD PRESSURE (Reported) Roflumilast (Daliresp) 500 MCG TABLET 1 TAB PO DAILY COPD (Reported) Simvastatin (Zocor*) 10 MG TABLET 1 TAB PO DAILY CHOLESTEROL (Reported) Tiotropium [place] (Spiriva) 18 MCG CAP.W.DEV 1 CAP INH DAILY COPD (Reported) (MARIAH ESCOBAR,ALICE Au) Past History Travel History Traveled to [place] past 21 day No Medical History Any Pertinent Medical History? see below for history Neurological: restless leg syndrome EENT: hearing loss Cardiovascular: hypertension, hyperlipidemia, myocardial infarction Respiratory: COPD Gastrointestinal: constipation, diverticulitis Hepatic: SLUDGE IN GALL BLADDER Renal: NONE Musculoskeletal: NONE Psychiatric: anxiety, depression Endocrine: NONE Blood Disorders: CLOTS Cancer(s): NONE ANIMATION ARTIST/Reproductive: NONE History of MRSA: No History of VRE: No History of CDIFF: No Pneumonia Vaccine: 01/22/15 Influenza Vaccine: 02/09/16 Tetanus Vaccine: 01/10/15 Surgical History Surgical History: CABG, stents Psychosocial History Who do you live with Daughter Services at Home None What is your primary language Faroese Tobacco Use: Quit >30 days ago ETOH Use: occasional use Family History Family History, If Any: MOTHER Relation not specified for: FH: CVA (cerebrovascular accident) Hx Contributory? No (LEONARDO JENNINGS MD) Review of Systems Review of Systems Constitutional: Reports: no symptoms. Eyes: Reports: no symptoms. Ears, Nose, Throat, Mouth: Reports: no symptoms. Respiratory: Reports: no symptoms. Cardiovascular: Reports: no symptoms. Gastrointestinal/Abdominal: Reports: no symptoms. Genitourinary: Reports: no symptoms. Musculoskeletal: Reports: see HPI, joint pain. Skin: Reports: see HPI. Neurological/Psychological: Reports: no symptoms. All Other Systems: Reviewed and Negative (LEONARDO JENNINGS MD) Physical Exam Physical Exam General Appearance: well developed/nourished, alert, awake, anxious Head: ecchymosis (left periorbital), swelling, tenderness Eyes: Bilateral: normal appearance, PERRL, EOMI, normal inspection. Ears, Nose, Throat, Mouth: hearing grossly normal, moist mucous membrane Neck: normal inspection, supple, full range of motion, normal alignment Respiratory: normal breath sounds, chest non-tender, no respiratory distress Cardiovascular: regular rate/rhythm, normal peripheral pulses, norml femoral pulses equa Peripheral Pulses: 4+ carotid (R), 4+ carotid (L) Gastrointestinal: normal bowel sounds, soft, non-tender, no organomegaly Back: normal inspection, normal range of motion Extremities: bony-point tenderness, limited range of motion, straight leg raised , no ligament instability Neurologic/Psych: no motor/sensory deficits, awake, alert, oriented x 3, cell pourer II- XII nml as tested Skin: intact, warm/dry [place] Coma Score [place] Coma Score Response Value Best Eye Response (Rakesh): open spontaneously 4 Best Verbal Response: oriented 5 Best Motor Response: obeys commands 6 Total 15 Core Measures ACS in differential dx? No Severe Sepsis Present: No Septic Shock Present: No (LEONARDO JENNINGS MD) Progress Differential Diagnosis: C/T/L spine injury, ICH, pelvis injury Plan of Care: Orders Procedure Date/time Status Regular Diet 06/03 L Active CASE MANAGEMENT CONSULT 02/24 0819 Active PT Evaluate & Treat 06/03 724 Active Lua, Insertion/Removal/Asses 06/03 632 Active CULTURE,URINE 06/03 632 Active EKG 06/03 632 Active URINALYSIS 06/03 614 Complete PROTHROMBIN TIME 06/03 614 Complete COMPREHENSIVE METABOLIC PANEL 06/03 614 Complete CBC WITHOUT DIFFERENTIAL 06/03 614 Complete TYPE & SCREEN (NOT X-MATCH) 06/03 614 Complete Theraputic Activities 15 Min 06/03 UNK Complete Gait Training, 15 Min 06/03 UNK Complete PT EVAL LOW COMPLEX 20 MIN 06/03 UNK Complete Laboratory Tests 06/03/16657: Urine Color YEL, Urine Clarity CLEAR, Urine pH 6.5, Ur Specific [place] <= 1.005 , Urine Protein NEG, Urine Ketones NEG, Urine Nitrite NEG, Urine Bilirubin NEG, Urine Urobilinogen 0.2, Ur Leukocyte Esterase NEG, Ur Microscopic EXAM NOT REQUIRED, Urine Hemoglobin NEG, Urine Glucose NEG 06/03/16 0637: Anion Gap 11, Estimated GFR > 60, BUN/Creatinine Ratio 17.1, Glucose 77, Calcium 9.7, Total Bilirubin 0.4, AST 33, ALT 29, Alkaline Phosphatase 39, Total Protein 6.4, Albumin 3.7, Globulin 2.7, Albumin/Globulin Ratio 1.4, PT 12.3, INR 1.17, CBC w Diff NO MAN DIFF REQ, RBC 3.10 L, MCV 88.3, MCH 29.1, RDW 15.3 H, MPV 9.3, Gran % 72.5, Lymphocytes % 19.3 L, Monocytes % 6.7, Eosinophils % 1.1, Basophils % 0.4, Absolute Granulocytes 4.0, Absolute Lymphocytes 1.1 L, Absolute Monocytes 0.4, Absolute Eosinophils 0.1, Absolute Basophils 0, PUBS MCHC 33.0 Microbiology 06/03 657 URINE ROUT: Urine Culture - RECD Diagnostic Imaging: Viewed by Me: CT Scan. Discussed w/RAD: CT Scan. Radiology Impression: Slightly displaced comminuted fractures through the greater tuberosity of left femur. CXR Impression: no acute abnormality Initial ED EKG: normal axis, normal intervals, normal p-waves, normal QRS complex, normal sinus rhythm, nonspecific ST T wave chg Hand-Off Endorsed To: MARIAH ESCOBAR,ALICE Au Endorsed Time: 719 Pending: consult (PT) Comments: Discussed with ortho. Patient can be discharged if she can ambulate safely. (DICK ESCOBAR,LEONARDO) Comments: PT HAS BEEN SEEN AND EVALUATED BY PT. PT IS UNSAFE FOR DISCHARGE GIVEN INABLITY TO BEAR WEIGHT BECAUSE OF THE FRACTURE. (ALICE LEMUS MD) Departure Departure Condition: Stable Clinical Impression Primary Impression: Contusion of face Qualifiers: Encounter type: initial encounter Qualified Code: S00.83XA - Contusion of other part of head, initial encounter Secondary Impressions: Fall at home Qualifiers: Encounter type: initial encounter Qualified Codes: W19.XXXA - Unspecified fall, initial encounter; Y92.099 - Unspecified place in other non- institutional residence as the place of occurrence of the external cause Femur fracture, left Qualifiers: Encounter type: initial encounter Referrals: CASSY BERMAN MD Call for orthopedic follow up COURTNEY NEW MD (PCP/Family) Departure Forms: Customer Survey General Discharge Information (LEONARDO JENNINGS MD) Departure Disposition: ACUTE REHAB FACILITY (ALICE LEMUS MD)
--- NOTE | 2016-06-03 06:45 | RADIOLOGY REPORT ---
EXAMINATION: XR PORTABLE CHEST CLINICAL INFORMATION: Fall. COMPARISON: Chest x-ray 02/05/2015 TECHNIQUE: Portable AP portable view of the chest was obtained. 6:14 AM FINDINGS: Status post median sternotomy. Calcifications thoracic aortic arch. Lungs are clear. No pleural effusion or pneumothorax. IMPRESSION: No acute abnormality of the chest.
[2016-06-03 07:16] LABS: PT 12.3 SEC (9.4-12.5)
[2016-06-03 07:19] LABS: ABSOLUTE BASOPHIL COUNT 0 /CUMM (0.0-0.2); ABSOLUTE EOSINOPHIL COUNT 0.1 /CUMM (0.0-0.7); ABSOLUTE LYMPH COUNT 1.1 /CUMM (1.2-3.4); ABSOLUTE MONOCYTE COUNT 0.4 /CUMM (0.10-0.60); BASOPHIL % 0.4 % (0.0-2.0); EOSINOPHIL % 1.1 % (0-5); GRANULOCYTE % 72.5 % (42.2-75.2); HEMATOCRIT 27.4 % (37-47); MEAN CORPUSCULAR HGB 29.1 PG (27.0-31.0); MEAN CORPUSCULAR VOLUME 88.3 FL (81.0-99.0); MEAN PLATELET VOLUME 9.3 FL (7.4-10.4); PLATELET COUNT 181 /CUMM (130-400); RBC DISTRIBUTION WIDTH 15.3 % (11.5-14.5); WHITE BLOOD CELL COUNT 5.5 /CUMM (4.8-10.8)
[2016-06-03 12:51] VITALS: BP 162/70
== END 2016-06-03 15:21 ==
LOC: ERH 04:50
PROVIDERS: Emergency Medicine
DX: S72.092A Other fracture of head and neck of left femur, initial encounter for closed fracture (principal); S00.83XA Contusion of other part of head, initial encounter; I10 Essential (primary) hypertension; J44.9 Chronic obstructive pulmonary disease, unspecified; Z87.891 Personal history of nicotine dependence; W19.XXXA Unspecified fall, initial encounter
CPT/HCPCS: 81003; 87086; 93005; 93010; 96374; 97116-GP; 97161-GP; 97530-GP

== ENCOUNTER 2016-08-25 05:52 | Observation (INO) | payer OTHER ==
[~2016-08-25] VITALS: Ht 154.9 cm; Wt 52.2 kg
--- NOTE | 2016-08-25 05:57 | ED NEURO DEFICIT/STROKE ---
History of Present Illness General Chief Complaint: General Adult Stated Complaint: BIBA WEAKNESS Source: patient, EMS Exam Limitations: clinical condition Allergies Coded Allergies: tramadol (Severe, severe cant walk 06/03/16) amoxicillin (From Augmentin) (Intermediate, GI DISTRESS 06/03/16) clavulanic acid (From Augmentin) (Intermediate, GI DISTRESS 06/03/16) Reconcile Medications Albuterol Sulfate (Proair Hfa) 90 MCG HFA.AER.AD 2 PUF INH Q4-6 PRN PRN ASTHMA (Reported) Alendronate Sodium 70 MG TABLET 1 TAB PO QW OSTEOPOROSIS (Reported) in the morning, at least 30 minutes before the first food, beverage, or medication of the day Amlodipine (Norvasc) 2.5 MG TABLET 2.5 MG PO BID BP (Reported) Aspirin (Aspirin*) 81 MG TAB.CHEW 81 MG PO DAILY CARDIAC (Reported) Budesonide/Formoterol Fumarate (Symbicort 160-4.5 Mcg Inhaler) 160 MCG-4.5 MCG/ ACTUATION HFA.AER.AD 2 PUF INH BID COPD (Reported) Calcium Carbonate/Vitamin D3 (Calcium 600 + Vit D 800 Tab) 600 MG-800 TABLET 1 TAB PO DAILY OSTEOPOROSIS (Reported) Carvedilol (Coreg) 6.25 MG TABLET HIGH BLOOD PRESSURE (Reported) Citalopram Hydrobromide (Celexa) 10 MG TABLET 1 TAB PO DAILY Depression ( Reported) Clopidogrel Bisulfate (Clopidogrel) 75 MG TABLET 1 TAB PO DAILY BLOOD THINNER (Reported) Diazepam 5 MG TABLET 1 TAB PO BIDP PRN ANXIETY (Reported) Diclofenac Sodium (Voltaren) 1 % GEL..GRAM. 1 NINO TOP 4 TIMES/DAY PRN PAIN SCALE 1-3 (MILD) Apply to Right hip and knee as needed Fenofibrate Nanocrystallized (Fenofibrate) 145 MG TABLET 1 TAB PO DAILY HIGH CHOLESTROL (Reported) Fluticasone Propionate (Flovent Hfa) 44 MCG AER.W.ADAP 2 PUF INH BID COPD ( Reported) Furosemide (Lasix) 40 MG TABLET 1 TAB PO DAILY WATER PILL (Reported) Melatonin 5 MG TABLET 2 TAB PO AT BEDTIME Insomnia Montelukast Sodium (Singulair) 10 MG TABLET 1 TAB PO DAILY ALLERGIES ( Reported) Nitroglycerin (Nitroglycerin Patch) 0.2 MG/HOUR PATCH.TD24 1 PAT TOP DAILY CP (Reported) Omeprazole 20 MG CAPSULE.DR 1 CAP PO DAILY GASTRITIS (Reported) Ramipril (Altace) 5 MG CAPSULE 1 CAP PO DAILY HIGH BLOOD PRESSURE (Reported) Roflumilast (Daliresp) 500 MCG TABLET 1 TAB PO DAILY COPD (Reported) Simvastatin (Zocor*) 10 MG TABLET 1 TAB PO DAILY CHOLESTEROL (Reported) Tiotropium [place] (Spiriva) 18 MCG CAP.W.DEV 1 CAP INH DAILY COPD (Reported) Triage Note: PT BIBA FROM [facility]. PER [facility]CF STAFF PT SEEMED LIKE SHE WAS ALTERED. PT IS USUALLY ALERT AND ORIENTED AT BASELINE, PT ARRIVES CONFUSED, GENERALIZED WEAKNESS AND SLURRED SPEECH. Triage Nurses Notes Reviewed? yes Onset: Gradual Duration: hour(s): Timing: unknown Severity: moderate New Weakness: difficulty speaking Altered Sensations: no altered sensation Vision Problem? No Glaucoma? No Impaired Ability: difficult to speak Baseline: alert, oriented x 3 Associated Symptoms: confusion Patient currently breastfeeds: No HPI: 75-year-old woman with a history of hypertension COPD presents with difficulty speaking. Per the report of the [facility], she was fine when she went to bed. When she woke this morning she had trouble speaking. Per the medics, she was slightly confused. She had broken speech that didn't seem to make sense. She had no focal weakness. Per the patient, she does not seem to be in pain or have difficulty breathing. (EMERY ESCOBAR,LEORA Martins) Vital Signs & Intake/Output Vital Signs & Intake/Output Vital Signs Date Time Temp Pulse Resp B/P B/P Pulse O2 O2 Flow FiO2 Mean Ox Delivery Rate 08/26 1702 97.8 104 20 140/88 08/26 1535 97.8 104 20 140/88 94 Room Air 08/26 1534 Room Air Room Air 08/26 0902 Room Air Room Air 08/26 0834 92 140/60 08/26 0834 92 140/60 08/26 0834 92 140/60 08/26 0645 98.1 92 20 140/60 96 Room Air ED Intake and Output 08/27 0000 08/26 1200 Intake Total 240 Output Total 100 Balance 140 Intake, Oral 240 Output, Urine 100 Past History Travel History Traveled to [place] past 21 day No Medical History Any Pertinent Medical History? see below for history Neurological: restless leg syndrome EENT: hearing loss Cardiovascular: hypertension, hyperlipidemia, myocardial infarction Respiratory: COPD Gastrointestinal: constipation, diverticulitis Hepatic: SLUDGE IN GALL BLADDER Renal: NONE Musculoskeletal: NONE Psychiatric: anxiety, depression Endocrine: NONE Blood Disorders: CLOTS Cancer(s): NONE GRANITE SETTER/Reproductive: NONE History of MRSA: No History of VRE: No History of CDIFF: No Pneumonia Vaccine: 01/22/15 Influenza Vaccine: 02/09/16 Tetanus Vaccine: 01/10/15 Surgical History Surgical History: CABG, stents Psychosocial History Who do you live with Daughter Services at Home None What is your primary language Persian Tobacco Use: Cognitive Impairment Family History Family History, If Any: MOTHER Relation not specified for: FH: CVA (cerebrovascular accident) Hx Contributory? No (EMERY ESCOBAR,LEORA Martins) Review of Systems Review of Systems Constitutional: Reports: no symptoms. EENTM: Reports: no symptoms. Respiratory: Reports: no symptoms. Cardiovascular: Reports: no symptoms. GI: Reports: no symptoms. Genitourinary: Reports: no symptoms. Musculoskeletal: Reports: no symptoms. Skin: Reports: no symptoms. Neurological/Psychological: Reports: no symptoms. Hematologic/Endocrine: Reports: no symptoms. Immunologic/Allergic: Reports: no symptoms. All Other Systems: Reviewed and Negative (EMERY ESCOBAR,LEORA Martins) Physical Exam Physical Exam General Appearance: well developed/nourished, mild distress Head: atraumatic, normal appearance Eyes: Bilateral: normal appearance, PERRL, EOMI. Ears, Nose, Throat: normal ENT inspection, moist mucous membrane Neck: normal inspection, supple, full range of motion Respiratory: normal breath sounds, chest non-tender, no respiratory distress, quiet respiration, lungs clear Cardiovascular: regular rate/rhythm Gastrointestinal: normal bowel sounds, soft, non-tender, no organomegaly Back: normal inspection, normal range of motion Extremities: normal range of motion, evidence of injury, injury present Psychiatric: awake, alert, oriented x 3 Cranial Nerves: normal hearing, normal speech, PERRL, difficulty speaking. Speech is broken. No tongue deviation. Coordination/Gait: normal finger to nose Motor/Sensory: no motor/sensory deficits Reflexes: 1+: bicep (R), bicep (L), knee (R), knee (L). Skin: intact, normal color, warm/dry Core Measures CVA/TIA Diagnosis: Yes Comment: no tpa since unknown start time. Severe Sepsis Present: No Septic Shock Present: No (EMERY ESCOBAR,LEORA Martins) Progress Diagnostic Imaging: Viewed by Me: CT Scan. Discussed w/RAD: CT Scan. Radiology Impression: head ct... no acute dz Comments: PATIENT: SENA TAY PRESENT AGE: 75 PATIENT ACCOUNT NO: [id number] : 41 LOCATION: [facility] ORDERING PHYSICIAN: LEORA GARCIA MD SERVICE DATE: 08/25/16 EXAM TYPE: CAT - CT HEAD WO IV CONTRAST EXAMINATION: CT HEAD WITHOUT CONTRAST CLINICAL INFORMATION: Slurred speech. COMPARISON: June 03, 2016. TECHNIQUE: Contiguous axial images of the brain were obtained without IV contrast. DLP: 647 mGy-cm. FINDINGS: There are no pathologic extra-axial fluid collections. The lateral, third, fourth ventricles are prominent, but stable, age-appropriate and concordant with the appearance of the sulci. There is no evidence for acute intraparenchymal hemorrhage or infarct. There is neither mass nor mass effect. There is no shift of midline structures. The paranasal sinuses and mastoid air cells are clear. There are no osseous lesions. IMPRESSION: No evidence for acute intracranial injury. Stable age-appropriate appearance of the brain. DICTATED BY: LEIF JEREZ MD DATE/TIME DICTATED:08/25/16644 PUNCH PRESS SETTER:MELITON DATE/TIME TRANSCRIBED:08/25/16644 CONFIDENTIAL, DO NOT COPY WITHOUT APPROPRIATE AUTHORIZATION. <Electronically signed in Other Vendor System> SIGNED BY: LEIF JEREZ MD 08/25/16 0651 (EMERY ESCOBAR,LEORA Martins) Differential Diagnosis: electrolyte imbalance, stroke, medication side effect Plan of Care: Orders Procedure Date/time Status Heart Healthy Diet 08/26 L Active THERAPIST ORDERS 08/26 09 Complete RT: Reevaluation 08/26 09 Active RT: Evaluation 08/26 901 Active PHOSPHORUS 08/26 0625 Complete MAGNESIUM 08/26 0625 Complete PT Evaluate & Treat 08/26 UNK Active Theraputic Activities 15 Min 08/26 UNK Complete Gait Training, 15 Min 08/26 UNK Complete PT EVAL LOW COMPLEX 20 MIN 08/26 UNK Complete Discharge Patient 08/26 UNK Active Lab Add-on Test 08/26 UNK Active Patient Safety Monitor 08/26 UNK Active PSYCHIATRIC CONSULT 08/26 K Active Laboratory Tests 08/26/16 0625: Anion Gap 15, Estimated GFR > 60, BUN/Creatinine Ratio 23.3, Phosphorus 2.9, Magnesium 1.6, CBC w Diff NO MAN DIFF REQ, RBC 4.06 L, MCV 88.4, MCH 29.1, RDW 16.3 H, MPV 8.6, Gran % 82.9 H, Lymphocytes % 7.7 L, Monocytes % 8.2, Eosinophils % 1.0, Basophils % 0.2, Absolute Granulocytes 7.6 H, Absolute Lymphocytes 0.7 L, Absolute Monocytes 0.7 H, Absolute Eosinophils 0.1, Absolute Basophils 0, PUBS MCHC 32.9 L Radiology Impression: PATIENT: SENA TAY PRESENT AGE: 75 PATIENT ACCOUNT NO: [id number] : 41 LOCATION: [facility] ORDERING PHYSICIAN: LEORA GARCIA MD SERVICE DATE: 08/25/16 EXAM TYPE: CAT - CT HEAD WO IV CONTRAST EXAMINATION: CT HEAD WITHOUT CONTRAST CLINICAL INFORMATION: Slurred speech. COMPARISON: June 03, 2016. TECHNIQUE: Contiguous axial images of the brain were obtained without IV contrast. DLP: 647 mGy-cm. FINDINGS: There are no pathologic extra-axial fluid collections. The lateral, third, fourth ventricles are prominent, but stable, age-appropriate and concordant with the appearance of the sulci. There is no evidence for acute intraparenchymal hemorrhage or infarct. There is neither mass nor mass effect. There is no shift of midline structures. The paranasal sinuses and mastoid air cells are clear. There are no osseous lesions. IMPRESSION: No evidence for acute intracranial injury. Stable age-appropriate appearance of the brain. DICTATED BY : LEIF JEREZ MD DATE/TIME DICTATED:08/25/16644 PUNCH PRESS SETTER:MELITON DATE/TIME TRANSCRIBED:08/25/16644 CONFIDENTIAL, DO NOT COPY WITHOUT APPROPRIATE AUTHORIZATION. <Electronically signed in Other Vendor System> SIGNED BY: LEIF JEREZ MD 08/25/16 0651 CXR Impression: PATIENT: SENA TAY PRESENT AGE: 75 PATIENT ACCOUNT NO: [id number] : 41 LOCATION: [facility] ORDERING PHYSICIAN: LEORA GARCIA MD SERVICE DATE: 08/25/16 EXAM TYPE: RAD - XRY-PORTABLE CHEST XRAY EXAMINATION: XR PORTABLE CHEST CLINICAL INFORMATION: TIA. Cerebrovascular accident. COMPARISON: Chest radiograph 2016. TECHNIQUE: Portable frontal view of the chest was obtained. FINDINGS: Multiple unfractured median sternotomy wires are noted. A coronary bypass ostial markers visualized. Dense coronary artery calcific atherosclerosis is present. The cardiac silhouette is normal in size. No effusions or pneumothoraces are identified. Grossly normal pattern pulmonary vasculature is noted. The lungs are clear. Artifacts overlie the thorax. He's osteopenia is present. IMPRESSION: 1. No acute cardiopulmonary abnormalities. Lungs clear. 2. Status post CABG. 3. Dense aortic calcific atherosclerosis. 4. Diffuse osteopenia. DICTATED BY: KVNG DOBBS MD DATE/TIME DICTATED:08/25/16746 PUNCH PRESS SETTER:MELITON DATE/TIME TRANSCRIBED:08/25/16746 CONFIDENTIAL, DO NOT COPY WITHOUT APPROPRIATE AUTHORIZATION. <Electronically signed in Other Vendor System> SIGNED BY: KVNG DOBBS MD 08/25/16 0752 Initial ED EKG: none Comments: 08/25/2016 9:35:26 AM case d/w pt rn at [facility] last dose of Valium and Percocet yest at 9pm. new medication, remuron beginning on the 16th. Patient is typically alert and oriented so she still seems off baseline at this point. I will consider an observation stay. 08/25/2016 8:20:42 AM patient signed out to me by Dr. Garcia at shift gear changer. Her evaluation shows hyponatremia and her urine is testing strongly positive for benzodiazepines. Sena is awake and alert but her speech is slurred and occasionally garbled. She feels this may be a medication reaction. I recommended she be hospitalized but she is reluctant at this point. She wishes to "think about it". I will reevaluate later. (RICKY ESCOBAR,BHUPENDRA Doty) Departure Departure Condition: Stable Referrals: DANIAL ESCOBAR,NORA MONTALVO (PCP/Family) Departure Forms: Customer Survey General Discharge Information Prescriptions: Current Visit Scripts Melatonin 2 TAB PO AT BEDTIME #60 TAB Diclofenac Sodium (Voltaren) 1 NINO TOP 4 TIMES/DAY PRN PAIN SCALE 1-3 (MILD) #1 TUBE Apply to Right hip and knee as needed PA/ROLLER LEVELER Co-Sign Statement Statement: ED Attending supervision documentation- [] I saw and evaluated the patient. I have also reviewed all the pertinent lab results and diagnostic results. I agree with the findings and the plan of care as documented in the PA's/ROLLER LEVELER's documentation. [] I have reviewed the ED Record and agree with the PA's/ROLLER LEVELER's documentation. [] Additions or exceptions (if any) to the PAs/ROLLER LEVELER's note and plan are summarized below: [] (EMERY ESCOBAR,LEORA Martins) Departure Disposition: STILL A PATIENT Clinical Impression Primary Impression: Slurred speech Secondary Impressions: Hyponatremia Observation Note Spoke With: MITRA ESCOBAR,[facility] Patient In: Non-ED OBS Care Area Rationale for Observation: My rational for observation is as follows she does not at baseline according to the nurse at [facility]. The patient's slurred speech has improved, her speech is still slurred and the patient still cannot recall where she is currently living. She also did not recall of how she arrived to the emergency department. Sena is currently not at baseline and the underlying cause is somewhat unclear at this point. I suspect medication side effect but hyponatremia may also be a contributing factor. The do not feel she is a good candidate for outpatient management at this point given her poor recall and confusion as to her current residence. Any sedating medications should be adjusted and the patient's sodium level should be monitored and treated accordingly. (RICKY ESCOBAR,BHUPENDRA Doty) 08/25/16 1900: Anion Gap 12, Estimated GFR > 60, BUN/Creatinine Ratio 21.7 08/25/16 1420: Anion Gap 11, Estimated GFR > 60, BUN/Creatinine Ratio 23.3 08/25/16 0745: Urine Color STRAW, Urine Clarity CLEAR, Urine pH 7.0, Ur Specific [place] 1.010, Urine Protein NEG, Urine Ketones NEG, Urine Nitrite NEG, Urine Bilirubin NEG, Urine Urobilinogen 0.2, Ur Leukocyte Esterase NEG, Ur Microscopic EXAM NOT REQUIRED, Urine Hemoglobin NEG, Urine Glucose NEG 08/25/16 0745: Urine Opiates Screen 171.00, Methadone Screen 58, Barbiturate Screen < 60, Ur Phencyclidine Scrn < 6.00, Amphetamines Screen < 100, U Benzodiazepines Scrn > 800.0 H, Urine Cocaine Screen < 50, Urine Cannabis Screen < 5.00, Urine Osmolality 277 L, Ur Random Creatinine 37.5, Ur Random Sodium 45, Ur Random Potassium 25.5, Fraction Sodium Excret 0.7 Microbiology 08/25 744 URINE ROUT: Urine Culture - RECD Diagnostic Imaging: Viewed by Me: CT Scan. Discussed w/RAD: CT Scan. Radiology Impression: head ct... no acute dz Comments: PATIENT: SENA TAY PRESENT AGE: 75 PATIENT ACCOUNT NO: [id number] : 41 LOCATION: [facility] ORDERING PHYSICIAN: LEORA GARCIA MD SERVICE DATE: 08/25/16 EXAM TYPE: CAT - CT HEAD WO IV CONTRAST EXAMINATION: CT HEAD WITHOUT CONTRAST CLINICAL INFORMATION: Slurred speech. COMPARISON: June 03, 2016. TECHNIQUE: Contiguous axial images of the brain were obtained without IV contrast. DLP: 647 mGy-cm. FINDINGS: There are no pathologic extra-axial fluid collections. The lateral, third, fourth ventricles are prominent, but stable, age-appropriate and concordant with the appearance of the sulci. There is no evidence for acute intraparenchymal hemorrhage or infarct. There is neither mass nor mass effect. There is no shift of midline structures. The paranasal sinuses and mastoid air cells are clear. There are no osseous lesions. IMPRESSION: No evidence for acute intracranial injury. Stable age-appropriate appearance of the brain. DICTATED BY: LEIF JEREZ MD DATE/TIME DICTATED:08/25/16644 PUNCH PRESS SETTER:MELITON DATE/TIME TRANSCRIBED:08/25/16644 CONFIDENTIAL, DO NOT COPY WITHOUT APPROPRIATE AUTHORIZATION. <Electronically signed in Other Vendor System> SIGNED BY: LEIF JEREZ MD 08/25/16 0651 (EMERY ESCOBAR,LEORA Martins) Differential Diagnosis: electrolyte imbalance, stroke, medication side effect Radiology Impression: PATIENT: SENA TAY PRESENT AGE: 75 PATIENT ACCOUNT NO: [id number] : 41 LOCATION: [facility] ORDERING PHYSICIAN: LEORA GARCIA MD SERVICE DATE: 08/25/16 EXAM TYPE: CAT - CT HEAD WO IV CONTRAST EXAMINATION: CT HEAD WITHOUT CONTRAST CLINICAL INFORMATION: Slurred speech. COMPARISON: June 03, 2016. TECHNIQUE: Contiguous axial images of the brain were obtained without IV contrast. DLP: 647 mGy-cm. FINDINGS: There are no pathologic extra-axial fluid collections. The lateral, third, fourth ventricles are prominent, but stable, age-appropriate and concordant with the appearance of the sulci. There is no evidence for acute intraparenchymal hemorrhage or infarct. There is neither mass nor mass effect. There is no shift of midline structures. The paranasal sinuses and mastoid air cells are clear. There are no osseous lesions. IMPRESSION: No evidence for acute intracranial injury. Stable age-appropriate appearance of the brain. DICTATED BY : LEIF JEREZ MD DATE/TIME DICTATED:08/25/16644 PUNCH PRESS SETTER:MELITON DATE/TIME TRANSCRIBED:08/25/16644 CONFIDENTIAL, DO NOT COPY WITHOUT APPROPRIATE AUTHORIZATION. <Electronically signed in Other Vendor System> SIGNED BY: LEIF JEREZ MD 08/25/16 0651 CXR Impression: PATIENT: SENA TAY PRESENT AGE: 75 PATIENT ACCOUNT NO: [id number] : 41 LOCATION: [facility] ORDERING PHYSICIAN: LEORA GARCIA MD SERVICE DATE: 08/25/16 EXAM TYPE: RAD - XRY-PORTABLE CHEST XRAY EXAMINATION: XR PORTABLE CHEST CLINICAL INFORMATION: TIA. Cerebrovascular accident. COMPARISON: Chest radiograph 2016. TECHNIQUE: Portable frontal view of the chest was obtained. FINDINGS: Multiple unfractured median sternotomy wires are noted. A coronary bypass ostial markers visualized. Dense coronary artery calcific atherosclerosis is present. The cardiac silhouette is normal in size. No effusions or pneumothoraces are identified. Grossly normal pattern pulmonary vasculature is noted. The lungs are clear. Artifacts overlie the thorax. He's osteopenia is present. IMPRESSION: 1. No acute cardiopulmonary abnormalities. Lungs clear. 2. Status post CABG. 3. Dense aortic calcific atherosclerosis. 4. Diffuse osteopenia. DICTATED BY: KVNG DOBBS MD DATE/TIME DICTATED:08/25/16746 PUNCH PRESS SETTER:CHEEMA DATE/TIME TRANSCRIBED:08/25/16746 CONFIDENTIAL, DO NOT COPY WITHOUT APPROPRIATE AUTHORIZATION. <Electronically signed in Other Vendor System> SIGNED BY: KVNG DOBBS MD 08/25/16 0752 Initial ED EKG: none Comments: 08/25/2016 9:35:26 AM case d/w pt rn at [facility] last dose of Valium and Percocet yest at 9pm. new medication, remuron beginning on the 16th. Patient is typically alert and oriented so she still seems off baseline at this point. I will consider an observation stay. 08/25/2016 8:20:42 AM patient signed out to me by Dr. Garcia at shift gear changer. Her evaluation shows hyponatremia and her urine is testing strongly positive for benzodiazepines. Sena is awake and alert but her speech is slurred and occasionally garbled. She feels this may be a medication reaction. I recommended she be hospitalized but she is reluctant at this point. She wishes to "think about it". I will reevaluate later. (RICKY ESCOBAR,BHUPENDRA Doty) Departure Departure Condition: Stable Referrals: DANIAL ESCOBAR,NORA MONTALVO (PCP/Family) Departure Forms: Customer Survey General Discharge Information (EMERY ESCOBAR,LEORA Martins) Departure Disposition: STILL A PATIENT Clinical Impression Primary Impression: Slurred speech Secondary Impressions: Hyponatremia Observation Note Spoke With: MITRA ESCOBAR,[facility] Patient In: Non-ED OBS Care Area Rationale for Observation: My rational for observation is as follows she does not at baseline according to the nurse at [facility]. The patient's slurred speech has improved, her speech is still slurred and the patient still cannot recall where she is currently living. She also did not recall of how she arrived to the emergency department. Sena is currently not at baseline and the underlying cause is somewhat unclear at this point. I suspect medication side effect but hyponatremia may also be a contributing factor. The do not feel she is a good candidate for outpatient management at this point given her poor recall and confusion as to her current residence. Any sedating medications should be adjusted and the patient's sodium level should be monitored and treated accordingly. (RICKY ESCOBAR,BHUPENDRA Doty)
--- NOTE | 2016-08-25 06:51 | CT SCAN REPORT ---
EXAMINATION: CT HEAD WITHOUT CONTRAST CLINICAL INFORMATION: Slurred speech. COMPARISON: June 03, 2016. TECHNIQUE: Contiguous axial images of the brain were obtained without IV contrast. DLP: 647 mGy-cm. FINDINGS: There are no pathologic extra-axial fluid collections. The lateral, third, fourth ventricles are prominent, but stable, age-appropriate and concordant with the appearance of the sulci. There is no evidence for acute intraparenchymal hemorrhage or infarct. There is neither mass nor mass effect. There is no shift of midline structures. The paranasal sinuses and mastoid air cells are clear. There are no osseous lesions. IMPRESSION: No evidence for acute intracranial injury. Stable age-appropriate appearance of the brain.
[2016-08-25 07:07] LABS: ABSOLUTE BASOPHIL COUNT 0 /CUMM (0.0-0.2); ABSOLUTE EOSINOPHIL COUNT 0.2 /CUMM (0.0-0.7); ABSOLUTE GRANULOCYTE CT 3.4 /CUMM (1.4-6.5); ABSOLUTE LYMPH COUNT 1.2 /CUMM (1.2-3.4); ABSOLUTE MONOCYTE COUNT 0.4 /CUMM (0.10-0.60); BASOPHIL % 0.4 % (0.0-2.0); EOSINOPHIL % 3.3 % (0-5); GRANULOCYTE % 65.1 % (42.2-75.2); HEMATOCRIT 34.4 % (37-47); MEAN CORPUSCULAR HGB 28.9 PG (27.0-31.0); MEAN CORPUSCULAR HGB CONC 32.9 G/DL (33.0-37.0); MEAN CORPUSCULAR VOLUME 87.8 FL (81.0-99.0); MEAN PLATELET VOLUME 8.5 FL (7.4-10.4); PLATELET COUNT 277 /CUMM (130-400); RBC DISTRIBUTION WIDTH 16.2 % (11.5-14.5); RED BLOOD CELL CT 3.91 /CUMM (4.20-5.40); WHITE BLOOD CELL COUNT 5.2 /CUMM (4.8-10.8)
[2016-08-25 07:19] LABS: PT 12.2 SEC (9.4-12.5); PTT 38 SEC (25-37)
--- NOTE | 2016-08-25 07:52 | RADIOLOGY REPORT ---
EXAMINATION: XR PORTABLE CHEST CLINICAL INFORMATION: TIA. Cerebrovascular accident. COMPARISON: Chest radiograph 06/03/2016. TECHNIQUE: Portable frontal view of the chest was obtained. FINDINGS: Multiple unfractured median sternotomy wires are noted. A coronary bypass ostial markers visualized. Dense coronary artery calcific atherosclerosis is present. The cardiac silhouette is normal in size. No effusions or pneumothoraces are identified. Grossly normal pattern pulmonary vasculature is noted. The lungs are clear. Artifacts overlie the thorax. He's osteopenia is present. IMPRESSION: 1. No acute cardiopulmonary abnormalities. Lungs clear. 2. Status post CABG. 3. Dense aortic calcific atherosclerosis. 4. Diffuse osteopenia.
--- NOTE | 2016-08-25 10:30 | History & Physical ---
FRANNY MEYERS 08/25/16 1029: General Information and HPI MD Statement: I have seen and personally examined SENA TAY and documented this H&P. The patient is a 75 year old F who presented with a patient stated chief complaint of [brought in from [facility] for altered mental status]. 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 Recent medical history includes an admission to [facility] in April 2016 for COPD exacerbation, recently treated for a UTI with Bactrim () and reports resolution in urinary frequency since then. She was also started on mirtazapine 7.5 mg QHS on 08/22 with no other changes to her medications since then. This morning she was noted to be more confused, agitated and having "slurred speech", difficulty sitting upright and standing independently. At her baseline she is independent with all her ADLs. Nursing staff deny any recent sick contacts and only changes to her medications are as indicated above. The patient does endorse increased fluid intake over the past few days since her UTI. ROS: She is noticeably confused with intermittent episodes of agitation. However at this time she denies any headache, blurred vision, dizziness, chest pain, palpitations, shortness of breath, abdominal pain, fevers or chills. Allergies/Medications Allergies: Coded Allergies: tramadol (Severe, severe cant walk 06/03/16) amoxicillin (From Augmentin) (Intermediate, GI DISTRESS 06/03/16) clavulanic acid (From Augmentin) (Intermediate, GI DISTRESS 06/03/16) Past History Travel History Traveled to [place] past 21 day No Medical History Neurological: restless leg syndrome EENT: hearing loss Cardiovascular: hypertension, hyperlipidemia, myocardial infarction Respiratory: COPD Gastrointestinal: constipation, diverticulitis Hepatic: SLUDGE IN GALL BLADDER Renal: NONE Musculoskeletal: NONE Psychiatric: anxiety, depression Endocrine: NONE Blood Disorders: CLOTS Cancer(s): NONE HIM ANALYST/Reproductive: NONE History of MRSA: No History of VRE: No History of CDIFF: No Tetanus Vaccine: 01/10/15 Surgical History Surgical History: CABG, stents Past Family/Social History Family History Relations & Conditions if any MOTHER Relation not specified for: FH: CVA (cerebrovascular accident) Psychosocial History Where do you live? [facility] Who Do You Live With? self Services at Home: None Primary Language: Slovenian Smoking Status: Former Smoker Functional Ability ADLs Independent: dressing, eating, toileting, bathing. Review of Systems Review of Systems Constitutional: Reports: see HPI. EENTM: Reports: no symptoms. Cardiovascular: Reports: no symptoms. Respiratory: Reports: no symptoms. GI: Reports: no symptoms. Genitourinary: Reports: see HPI. Musculoskeletal: Reports: no symptoms. Neurological/Psychological: Reports: see HPI. Exam & Diagnostic Data Last 24 Hrs of Vital Signs/I&O Vital Signs Date Time Temp Pulse Resp B/P B/P Pulse O2 O2 Flow FiO2 Mean Ox Delivery Rate 08/25 1107 162/82 08/25 1040 96.2 73 18 192/83 98 Room Air 08/25 0838 97.0 73 15 179/81 96 Room Air Room Air 08/25 0629 100 Room Air 08/25 0558 97.5 74 18 176/79 100 Room Air Intake & Output 08/25 1600 08/25 0800 08/25 0000 Intake Total Output Total Balance Patient 115 lb Weight Weight Estimated Measurement Method Physical Exam General Appearance No Acute Distress, AAO X2 (time and person) Skin No Breakdown HEENT EOMI, Mucous Membr. moist/pink Cardiovascular Regular Rate, Normal S1, Normal S2, No Murmurs Lungs Normal Air Movement, inspiratory crackles present bilateral basilar lung newman Abdomen Normal Bowel Sounds, Soft, No Tenderness Neurological Normal Speech, Normal Tone, Sensation Intact, focal deficits at this time. Patient is slightly confused. States she requested to be taken to [place], difficulty understanding that she is actually at Extremities No Edema, Normal Pulses Vascular Pulses Symmetrical Last 24 Hrs of Labs/Hernandez: Laboratory Tests 08/25/16 0745: Urine Color STRAW, Urine Clarity CLEAR, Urine pH 7.0, Ur Specific [place] 1.010, Urine Protein NEG, Urine Ketones NEG, Urine Nitrite NEG, Urine Bilirubin NEG, Urine Urobilinogen 0.2, Ur Leukocyte Esterase NEG, Ur Microscopic EXAM NOT REQUIRED, Urine Hemoglobin NEG, Urine Glucose NEG 08/25/16 0745: Urine Opiates Screen 171.00, Methadone Screen 58, Barbiturate Screen < 60, Ur Phencyclidine Scrn < 6.00, Amphetamines Screen < 100, U Benzodiazepines Scrn > 800.0 H, Urine Cocaine Screen < 50, Urine Cannabis Screen < 5.00, Ur Random Creatinine 37.5, Ur Random Sodium 45, Ur Random Potassium 25.5, Fraction Sodium Excret 0.7 08/25/16 0648: Anion Gap 8, Estimated GFR > 60, BUN/Creatinine Ratio 21.4, Glucose 83, Serum Osmolality 271 L, Calcium 9.5, Total Bilirubin 0.6, AST 25, ALT 30, Alkaline Phosphatase 44, Troponin I 0.01, Total Protein 6.7, Albumin 3.8, Globulin 2.9, Albumin/Globulin Ratio 1.3, PT 12.2, INR 1.16, APTT 38 H, CBC w Diff NO MAN DIFF REQ, RBC 3.91 L, MCV 87.8, MCH 28.9, RDW 16.2 H, MPV 8.5, Gran % 65.1, Lymphocytes % 22.9, Monocytes % 8.3, Eosinophils % 3.3, Basophils % 0.4, Absolute Granulocytes 3.4, Absolute Lymphocytes 1.2, Absolute Monocytes 0.4, Absolute Eosinophils 0.2, Absolute Basophils 0, PUBS MCHC 32.9 L Diagnostic Data EKG Results Sinus arrhythmia, HR 63 BPM. NC interval 152, QTC 414 CXR Results 1. No acute cardiopulmonary abnormalities. Lungs clear. 2. Status post CABG. 3. Dense aortic calcific atherosclerosis. 4. Diffuse osteopenia. Other Results Head CT without contrast: No evidence for acute intracranial injury. Stable age-appropriate appearance of the brain. Assessment/Plan Assessment: 75 y/o lady w/ a PMH terminal COPD with FEV1 0.6L, femoral/iliac bypass graft, previous tobacco use quit 5 months ago, lung nodule on previous CT with unremarkable follow-up PET scan, CAD s/p CABG/stent placement, dipyridamole stress test on 11/23/15 indeterminate, HTN, HLD, anxiety, depression and recent hip fracture was BIBA from [facility] for new onset altered mentation. Last admitted to [facility] in April 2016 for COPD exacerbation, treated for UTI with Bactrim () with resolution of urinary frequency, started on mirtazapine 7.5 mg QHS for agitation and insomnia. Patient did endorse increased fluid intake since being diagnosed with a UTI. VS on admission: BP 176/79, HR 74, RR 18, SPO2 100% on RA, T 97.5 Pertinent labs on admission: BC 5.2, H&H 11.3/34.4, platelets 277, sodium 128, potassium 4.3, chloride 93, bicarbonate 27, BUN/CR 50/0.7, glucose 83 INR 1.16 Urine tox: Benzodiazepines > 800 Serum osmolality: 271L Urine lites: Sodium 45, potassium 25.5, FENa 0.7 Urine osmolality: Pending Problem list: 1. Altered mental status 2. Hyponatremia 3. Hypertensive urgency 4. COPD 5. History of COPD 6. Anxiety/depression Plan: * Admit to general medicine floor for management of her altered mental status * DDX: Psychogenic polydipsia with hyponatremia vs serotonin syndrome/ medication induced delirium in the setting of recently started on mirtazapine. DC mirtazapine, continue with her regular dose of diazepam * Hyponatremia: Euvolemic, your serum osmolality. 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 Urine lites will be likely unreliable in the setting of chronic Lasix use * Fluid restriction at this time for the next 24 hours * Follow-up BEP at 1 PM and 7 PM * Will defer initiating antimicrobial therapy at this time in the setting of unremarkable UA * TRCs, Daliresp, Symbicort, Spiriva and singular for history of COPD * Continue aspirin and Plavix for history of stent placement * Omeprazole 20 mg for GI prophylaxis * Fenofibrate 145 mg, simvastatin 10 mg for hyperlipidemia * Lasix 40 mg daily. Will follow up magnesium and phosphorus level * Nitroglycerin 0.2 mg Q12, Norvasc 2.5 mg by mouth twice a day, Coreg 6.25 mg by mouth twice a day * Celexa 10 mg daily * Heart healthy diet * DVT prophylaxis: Lovenox * Full code As Ranked By This Provider Problem List: 1. Altered mental status 2. Hypertensive urgency 3. Anxiety 4. Hyponatremia Core Measures/Miscellaneous Acute Coronary Syndrome ACS Diagnosis: No Cerebrovascular Accident CVA/TIA Diagnosis: Yes Congestive Heart Failure CHF Diagnosis: No Venous Thromboembolism VTE Risk Factors: Age > 40 [facility] prophylaxis d/t: No contraindications No VTE Pharm Prophylaxis d/t: No contraindications VTE Diagnosis: No VTE Type: NONE VTE Confirmed by (Test): NONE Severe Sepsis Severe Sepsis Present: No Septic Shock Septic Shock Present: No Miscellaneous Documentation Attending Case Discussed With: HUMAIRA ARNOLD MD Primary Care Physician: DANIAL ESCOBAR,NORA MONTALVO Patient sees these Specialists NA Level of Patient Care: General Medicine Resident Review Statement Resident Statement: examined this patient, discussed with media intern, agreed with media intern, discussed with family, reviewed EMR data (avail), discussed with nursing , reviewed images HUMAIRA ARNOLD MD 08/25/16 1436: General Information and HPI Allergies/Medications Home Med list Albuterol Sulfate (Proair Hfa) 90 MCG HFA.AER.AD 2 PUF INH Q4-6 PRN PRN ASTHMA (Reported) Alendronate Sodium 70 MG TABLET 1 TAB PO QW OSTEOPOROSIS (Reported) in the morning, at least 30 minutes before the first food, beverage, or medication of the day Amlodipine (Norvasc) 2.5 MG TABLET 2.5 MG PO BID BP (Reported) Aspirin (Aspirin*) 81 MG TAB.CHEW 81 MG PO DAILY CARDIAC (Reported) Budesonide/Formoterol Fumarate (Symbicort 160-4.5 Mcg Inhaler) 160 MCG-4.5 MCG/ ACTUATION HFA.AER.AD 2 PUF INH BID COPD (Reported) Calcium Carbonate/Vitamin D3 (Calcium 600 + Vit D 800 Tab) 600 MG-800 TABLET 1 TAB PO DAILY OSTEOPOROSIS (Reported) Carvedilol (Coreg) 6.25 MG TABLET HIGH BLOOD PRESSURE (Reported) Citalopram Hydrobromide (Celexa) 10 MG TABLET 1 TAB PO DAILY Depression ( Reported) Clopidogrel Bisulfate (Clopidogrel) 75 MG TABLET 1 TAB PO DAILY BLOOD THINNER (Reported) Diazepam 5 MG TABLET 1 TAB PO BIDP PRN ANXIETY (Reported) Fenofibrate Nanocrystallized (Fenofibrate) 145 MG TABLET 1 TAB PO DAILY HIGH CHOLESTROL (Reported) Fluticasone Propionate (Flovent Hfa) 44 MCG AER.W.ADAP 2 PUF INH BID COPD ( Reported) Furosemide (Lasix) 40 MG TABLET 1 TAB PO DAILY WATER PILL (Reported) Montelukast Sodium (Singulair) 10 MG TABLET 1 TAB PO DAILY ALLERGIES ( Reported) Nitroglycerin (Nitroglycerin Patch) 0.2 MG/HOUR PATCH.TD24 1 PAT TOP DAILY CP (Reported) Omeprazole 20 MG CAPSULE.DR 1 CAP PO DAILY GASTRITIS (Reported) Ramipril (Altace) 5 MG CAPSULE 1 CAP PO DAILY HIGH BLOOD PRESSURE (Reported) Roflumilast (Daliresp) 500 MCG TABLET 1 TAB PO DAILY COPD (Reported) Simvastatin (Zocor*) 10 MG TABLET 1 TAB PO DAILY CHOLESTEROL (Reported) Tiotropium [place] (Spiriva) 18 MCG CAP.W.DEV 1 CAP INH DAILY COPD (Reported) Attending MD Review Statement Attending Statement Attending MD Statement: examined this patient, discuss w/resident/PA/TUFTER HAND, agreed w/resident/PA/TUFTER HAND, reviewed EMR data (avail) Attending Assessment/Plan: 75F PMH COPD, peripheral artery disease, CAD s/p CABG, HTN, HLD, dementia, recent hip fracture without repair, UTI treated empirically with Bactrim 1 week ago presenting with slurred speech and unsteady gait since this morning after starting Remeron last night. Patient has no complaints, though she has confused and tangential speech. No focal neurological deficit, cranial nerve exam normal , low suspicion for CVA at this time. Labs show hyponatremia 128 with low serum osmolality. Exam otherwise normal. No EKG changes. CT head normal for age. Plan - Admit to general medicine - Fluid restriction - Monitor sodium - Medication review for polypharmacy - Stop Remeron - Neuro checks, if change in status then obtain MRI head - Send UA and urine culture - Psychiatry consult - Continue home medications - DVT PPx
[2016-08-25] MEDS ORDERED: CELEXA10 M1 PO (12:46)
[2016-08-25 13:57] VITALS: BP 120/70
--- NOTE | 2016-08-25 14:33 | Admission Certification ---
Admission Certification Certification Statement - As attending physician, I certify that at the time of - admission, based on clinical presentation, severity of - symptoms, need for further diagnostic testing and - therapeutic interventions, and risk of adverse outcomes - without in-hospital treatment, in my clinical assessment, - this patient requires an acute hospital stay for a minimum - of two nights or longer. I have also considered psychsocial - factors such as support system, advanced age, financial - issues, cognitive issues, and failed out-patient treatments, - past re-admission history, safety of patient, and lack of - compliance as applicable. Specific rationale supporting this admission is: Altered mental status and hyponatremia
[2016-08-25 22:40] VITALS: BP 122/78
--- NOTE | 2016-08-25 23:30 | Event Note ---
Event Note Event Note: 75-year-old female status post mechanical slip and fall in the bathroom. The patient states she was turning suddenly and fell striking her right knee on the floor. She denies head injury neck pain or other complaints. She has mild right anterior knee pain. On physical exam there is no ligament instability there is no soft tissue swelling Assessment and plan Contusion to the right knee X-ray of the right knee was ordered to ensure no fracture
--- NOTE | 2016-08-26 00:57 | RADIOLOGY REPORT ---
EXAMINATION: RIGHT KNEE 3 VIEWS CLINICAL INFORMATION: Right knee pain after fall. COMPARISON: None. TECHNIQUE: AP, lateral, oblique views of the right knee were obtained. FINDINGS: There are no fractures or dislocations. There is no knee joint effusion. There is no significant soft tissue swelling. IMPRESSION: No evidence for acute injury to the right knee.
[2016-08-26 06:45] VITALS: BP 140/60
[2016-08-26 07:45] LABS: ABSOLUTE BASOPHIL COUNT 0 /CUMM (0.0-0.2); ABSOLUTE EOSINOPHIL COUNT 0.1 /CUMM (0.0-0.7); ABSOLUTE LYMPH COUNT 0.7 /CUMM (1.2-3.4); ABSOLUTE MONOCYTE COUNT 0.7 /CUMM (0.10-0.60)
--- NOTE | 2016-08-26 07:46 | PN- Housestaff ---
FRANNY MEYERS 08/26/16 0746: Subjective Follow-up For: 1. Altered mental status 2. Hyponatremia 3. Hypertensive urgency Complaints: Asking to go home Subjective: Inteval history: The patient suffered a mechanical fall yesterday night while ambulating to the bathroom with no preceding dizziness, LOC. Imaging to the right knee did not show any evidence of acute fracture. This morning she does report some mild pain in her knee. She denies any fevers, chills, headache, blurred visions. Of note, the patient is noticeably more alert and communicative in comparison with 24 hours ago. Review of Systems Constitutional: Reports: see HPI. EENTM: Reports: no symptoms. Cardiovascular: Reports: no symptoms. Respiratory: Reports: no symptoms. Gastrointestinal: Reports: no symptoms. Musculoskeletal: Reports: see HPI. Objective Last 24 Hrs of Vital Signs/I&O Vital Signs Date Time Temp Pulse Resp B/P B/P Pulse O2 O2 Flow FiO2 Mean Ox Delivery Rate 08/26 0902 Room Air Room Air 08/26 0834 92 140/60 08/26 0834 92 140/60 08/26 0834 92 140/60 08/26 0645 98.1 92 20 140/60 96 Room Air 08/25 2240 97.7 60 20 122/78 90 Room Air 08/25 2134 80 122/78 08/25 2132 80 122/78 08/25 1600 96 Room Air 08/25 1557 88 140/80 08/25 1357 97.7 80 20 120/70 96 08/25 1226 68 180/76 08/25 1226 68 180/76 08/25 1215 96.8 68 15 180/76 98 Room Air Room Air Intake & Output 08/26 1600 08/26 0800 08/26 0000 Intake Total 240 280 Output Total 100 Balance 140 280 Intake, Oral 240 280 Output, Urine 100 Physical Exam General Appearance: Alert, Cooperative, No Acute Distress Skin: No Significant Lesion HEENT: Mucous Membr. moist/pink Cardiovascular: Regular Rate, Normal S1, Normal S2 Lungs: Clear to Auscultation, Normal Air Movement Abdomen: Normal Bowel Sounds, Soft, No Tenderness Extremities: No Edema, Normal Pulses Vascular: Pulses Symmetrical Current Medications: Current Medications Sig/Manohar Start time Last Medication Dose Route Stop Time Status Admin Acetaminophen 650 MG ONCE ONE 08/25 2330 DC 08/26 PO 08/25 2331 0006 Acetaminophen 650 MG Q6P PRN 08/25 1200 AC 08/26 PO 0935 Acetaminophen 1,000 MG Q6P PRN 08/25 1200 AC IV Albuterol Sulfate 3 ML Q4H PRN 08/26 0915 AC INH Alendronate Sodium 70 MG QTUES 08/30 0700 AC PO Amlodipine Besylate 0 .STK-MED ONE 08/25 1226 DC PO Amlodipine Besylate 2.5 MG BID 08/25 1155 AC 08/26 PO 0834 Aspirin 81 MG DAILY 08/26 1000 AC 08/26 PO 0834 Budesonide/ 2 PUF BID 08/25 1155 AC 08/26 Formoterol Fumarate INH 0836 Carvedilol 6.25 MG BID 08/25 1200 AC 08/26 PO 0834 Citalopram 10 MG DAILY 08/25 1247 AC 08/26 Hydrobromide PO 0834 Clopidogrel Bisulfate 75 MG DAILY 08/26 1000 AC 08/26 PO 0834 Diazepam 5 MG BID PRN 08/25 1300 AC 08/26 PO 0006 Enoxaparin Sodium 40 MG DAILY 08/26 1000 AC SC Fenofibrate 145 MG DAILY 08/26 1000 AC 08/26 PO 0835 Furosemide 40 MG DAILY 08/26 1000 AC 08/26 PO 0834 Lisinopril 0 .STK-MED ONE 08/25 1226 DC PO Lisinopril 10 MG DAILY 08/25 1158 AC 08/26 PO 0834 Magnesium Oxide 800 MG ONE ONE 08/25 1615 DC 08/25 PO 08/25 1616 1707 Montelukast Sodium 10 MG DAILY 08/25 1157 AC 08/26 PO 0835 Morphine Sulfate 4 MG Q4P PRN 08/25 1200 AC IV Nitroglycerin 0.2 MG 1600 08/25 1600 AC TOP Nitroglycerin 0.2 MG DAILY 08/25 1157 DC 08/25 TOP 1557 Omeprazole 20 MG DAILY AC 08/26 0700 AC PO Omeprazole 0 .STK-MED ONE 08/25 1226 DC PO Omeprazole 20 MG DAILY 08/25 1158 DC 08/25 PO 1226 Roflumilast 500 MCG DAILY 08/25 1200 AC 08/26 PO 0838 Simvastatin 10 MG 1700 08/25 1700 AC 08/25 PO 1558 Tiotropium [place] 1 PUF DAILY 05/18 1201 08/26 INH 0836 Last 24 Hrs of Lab/Hernandez Results Last 24 Hrs of Labs/Mics: Laboratory Tests 08/26/16 0625: Anion Gap 15, Estimated GFR > 60, BUN/Creatinine Ratio 23.3, Phosphorus 2.9, Magnesium 1.6, CBC w Diff NO MAN DIFF REQ, RBC 4.06 L, MCV 88.4, MCH 29.1, RDW 16.3 H, MPV 8.6, Gran % 82.9 H, Lymphocytes % 7.7 L, Monocytes % 8.2, Eosinophils % 1.0, Basophils % 0.2, Absolute Granulocytes 7.6 H, Absolute Lymphocytes 0.7 L, Absolute Monocytes 0.7 H, Absolute Eosinophils 0.1, Absolute Basophils 0, PUBS MCHC 32.9 L 08/25/16 1900: Anion Gap 12, Estimated GFR > 60, BUN/Creatinine Ratio 21.7 08/25/16 1420: Anion Gap 11, Estimated GFR > 60, BUN/Creatinine Ratio 23.3 Assessment/Plan Assessment: 75 y/o lady w/ a PMH terminal COPD with FEV1 0.6L, femoral/iliac bypass graft, previous tobacco use quit 5 months ago, lung nodule on previous CT with unremarkable follow-up PET scan, CAD s/p CABG/stent placement, dipyridamole stress test on 11/23/15 indeterminate, HTN, HLD, anxiety, depression and recent hip fracture was BIBA from [facility] for new onset altered mentation. Last admitted to [facility] in April 2016 for COPD exacerbation, treated for UTI with Bactrim () with resolution of urinary frequency, started on mirtazapine 7.5 mg QHS for agitation and insomnia. Patient did endorse increased fluid intake since being diagnosed with a UTI. VS on admission: BP 176/79, HR 74, RR 18, SPO2 100% on RA, T 97.5 Pertinent labs on admission: BC 5.2, H&H 11.3/34.4, platelets 277, sodium 128, potassium 4.3, chloride 93, bicarbonate 27, BUN/CR 50/0.7, glucose 83 INR 1.16 Urine tox: Benzodiazepines > 800 Serum osmolality: 271L Urine lites: Sodium 45, potassium 25.5, FENa 0.7 Urine osmolality: 277L Problem list: 1. Altered mental status 2. Hyponatremia: Euvolemic, low serum and urine osmolality 3. Hypertensive urgency 4. COPD 5. History of COPD 6. Anxiety/depression Plan: 1. Altered mental status * Multifactorial etiology: Progressive dementia versus hyponatremia versus delirium in the setting of medication * I had a chance to speak with the patient's daughter this morning. She states that her change in mentation/confusion most prominent in the mornings has been progressive over the past 2 years. She also indicates that the patient has not been seen by a manager of security in the past * Psychiatry input appreciated: Recommendations at this time: Avoid benzos, opioids, anticholinergic medications. Avoid nursing or medical procedures during sleep hours as much as possible. Decreased noise to patient area, review sliding at night. Start melatonin 10 mg at bedtime. Outpatient geriatrics consult 2. Hyponatremia: Euvolemic, low serum and urine osmolality * Differential etiologies include psychogenic polydipsia versus SIADH * Fluid restriction of 1000 mL for the first 24 hours with noticeable improvement in sodium from 128-133 * We'll increase her fluid restriction to 1500 mL/24 hours with discharge recommendations to continue to monitor sodium Q24hrs. Once stable fluid restrictions can be released/adjusted accordingly 3. Hypertensive urgency * Resolved at this time. Continue home medication 4. COPD * Stable at this time 5. Anxiety/depression * Stable at this time. Continue home dose of diazepam 5 mg BID PRN NB: The patient's daughter indicates that she does have a history of narcotic dependence after her hip fracture which she was successfully tapered off. She also indicates that her mother does have a tendency to seek narcotics by exaggerating her pain level. She cautioned to be extremely conservative with any narcotic analgesic Problem List: 1. Altered mental status 2. Hyponatremia 3. Hypertensive urgency 4. Anxiety Pain Ratin Pain Location: RIght knee Pain Goal: Pain 4 or less Pain Plan: Tylenol Tomorrow's Labs & Rationales: BEP: Monitoring sodium correction DVT/Prophylaxis: pharmacological Consulting Request: Consulting Specialty: Psychiatry Discharge Plan Discharge Disposition: STR/NH Stable for Discharge? No Anticipated Discharge (Day): tomorrow If Discharged Today/In 24 Hrs: enter antc discharge ord, W-10/discharge paper done, DC summary done, CMR done HUMIARA ARNOLD MD 08/26/16 1019: Attending MD Review Statement Attending Statement Attending MD Statement: examined this patient, discuss w/resident/PA/AIRPLANE PATROLLER, agreed w/resident/PA/AIRPLANE PATROLLER, reviewed EMR data (avail) Attending Assessment/Plan: 75F PMH COPD, peripheral artery disease, CAD s/p CABG, HTN, HLD, dementia, recent hip fracture without repair, UTI treated empirically with Bactrim 1 week ago presenting with slurred speech and unsteady gait since this morning after starting Remeron last night. Patient has no complaints, though she has confused and tangential speech. No focal neurological deficit, cranial nerve exam normal , low suspicion for CVA at this time. Labs show hyponatremia 128 with low serum osmolality. Exam otherwise normal. No EKG changes. CT head normal for age. Brought in under 23 hour observation (not admission, certification was in error) . Today patient is not slurring her speech and seems to be more steady on her feet , however overnight she slipped and fell in the bathroom and landed on her knee. No head injury or loss of consciousness. Patient still appears confused but improved from yesterday. Neuro exam is normal, cranial nerves grossly intact. Suspect her slurred speech yesterday was due to medications. No evidence of acute neurological deficit. Plan - Stable for discharge - Stop Remeron - Avoid sedatives - Psychiatry consult - Continue home medications
--- NOTE | 2016-08-26 07:58 | Discharge Summary ---
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 for new onset altered mentation. Last admitted to [facility] in April 2016 for COPD exacerbation, treated for UTI with Bactrim () with resolution of urinary frequency, started on mirtazapine 7.5 mg QHS for agitation and insomnia. Patient did endorse increased fluid intake since being diagnosed with a UTI. Additional information obtained from the patient's daughter indicates that she has had this progressive two-year duration of confusion/dementia most evident in the mornings. 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 VS on admission: BP 176/79, HR 74, RR 18, SPO2 100% on RA, T 97.5 Pertinent labs on admission: WBC 5.2, H&H 11.3/34.4, platelets 277, sodium 128, potassium 4.3, chloride 93, bicarbonate 27, BUN/CR 50/0.7, glucose 83 INR 1.16 Urine tox: Benzodiazepines > 800 Serum osmolality: 271L Urine lites: Sodium 45, potassium 25.5, FENa 0.7 Urine osmolality: 277 Patient was admitted to the general medicine floor for management of the following problems: 1. Altered mental status 2. Hyponatremia: Euvolemic, low serum and urine osmolality 3. Hypertensive urgency 4. COPD 5. History of COPD 6. Anxiety/depression Hospital course: 1. Altered mental status/delirium * We obtained a head CT that showed: No evidence for acute intracranial injury. Stable age-appropriate appearance of the brain * DDX: Hyponatremia vs hypertensive urgency vs UTI vs delirium in the setting of recent mirtazapine * Recommendations at this time from psychiatry are to discontinue mirtazapine and start melatonin 10 mg at bedtime. Additionally, Avoid benzos, opioids, anticholinergic medications. Avoid nursing or medical procedures during sleep hours as much as possible. Decreased noise to patient area, review sliding at night. Start melatonin 10 mg at bedtime. Outpatient geriatrics consult 2. Hyponatremia: Euvolemic, low serum and urine osmolality * Differential etiologies include psychogenic polydipsia versus SIADH * Fluid restriction of 1000 mL for the first 24 hours with noticeable improvement in sodium from 128-133. Will increase to 1500 mL/24hr. Recommendations after discharge are for daily BEP monitoring and adjust/ liberalize fluid intake according. 3. Hypertensive urgency * On admission blood pressure was as high as 192/83 that was most likely secondary to anxiety. BP the rest of the hospital stay remained stable 4. History of COPD * Patient remained stable throughout hospital stay 5. Anxiety/depression * Stable at this time. Continue home dose of diazepam 5 mg BID PRN 6. Mechanical fall * On hospital day #1 the patient suffered a mechanical fall while ambulating to the bathroom with no preceding dizziness or loss of consciousness. X-ray of the right knee was unrevealing for fracture or effusion. VOltaren gel topical as needed NB: The patient's daughter indicates that she does have a history of narcotic dependence after her hip fracture which she was successfully tapered off. She also indicates that her mother does have a tendency to seek narcotics by exaggerating her pain level. She cautioned to be extremely conservative with any narcotic analgesic Allergies: Coded Allergies: tramadol (Severe, severe cant walk 06/03/16) amoxicillin (From Augmentin) (Intermediate, GI DISTRESS 06/03/16) clavulanic acid (From Augmentin) (Intermediate, GI DISTRESS 06/03/16) Disposition Summary Disposition Principal Diagnosis: Delirium/altered mental status Additional Diagnosis: Hyponatremia Low serum osmolality, urine osmolality Hypertensive urgency Discharge Disposition: SNF Discharge Instructions General Discharge Information Code Status: Full Code Patient's Diet: Heart healthy, 1500 mL/24hrs fluid restriction while monitoring sodium. Please adjust/liberalize fluid restriction once hyponatremia stabilizes Patient's Activity: As tolerated Follow-Up Instructions/Appts: Please take all medications as directed. Please follow-up with her PCP within one week after discharge. Geriatrics outpatient follow-up recommended. Medications at Discharge Discharge Medications: Continue taking these medications: Clopidogrel Bisulfate (Clopidogrel) 75 MG TABLET 1 Tablet ORAL DAILY Comments: Last Taken: 04/11/16 Time: 10 AM Tiotropium [place] (Spiriva) 18 MCG CAP.W.DEV 1 Capsule Inhale through mouth DAILY Comments: Last Taken: LAST TAKEN 04/10/16 Time: 10 PM Budesonide/Formoterol Fumarate (Symbicort 160-4.5 Mcg Inhaler) 160 MCG-4.5 MCG/ ACTUATION HFA.AER.AD 2 Puff Inhale through mouth TWICE DAILY Comments: NOT TAKEN IN HOSPITAL Simvastatin (Zocor*) 10 MG TABLET 1 Tablet ORAL DAILY Comments: ATORVASTATIN (LIPITOR) 5 MG PO LAST TAKEN 04/10/16 AT 1700 Fenofibrate Nanocrystallized (Fenofibrate) 145 MG TABLET 1 Tablet ORAL DAILY Comments: Last Taken: 04/11/16 Time: 10 AM Carvedilol (Coreg) 6.25 MG TABLET Comments: Last Taken: 04/11/16 Time: 10 AM Furosemide (Lasix) 40 MG TABLET 1 Tablet ORAL DAILY Comments: Last Taken: 04/11/16 Time: 10 AM Ramipril (Altace) 5 MG CAPSULE 1 Capsule ORAL DAILY Comments: LISINOPRIL LAST TAKEN 04/11/16 AT 10 AM Nitroglycerin (Nitroglycerin Patch) 0.2 MG/HOUR PATCH.TD24 1 Patch On the skin DAILY Comments: Last Taken: 04/10/16 Time: 10 PM Albuterol Sulfate (Proair Hfa) 90 MCG HFA.AER.AD 2 Puff Inhale through mouth EVERY 4-6 HOURS NEEDED as needed for ASTHMA Diazepam (Diazepam) 5 MG TABLET 1 Tablet ORAL 2 x Daily as needed as needed for ANXIETY Qty = 60 Comments: Last Taken: 04/11/16 Time: 10 AM Amlodipine (Norvasc) 2.5 MG TABLET 2.5 Milligram ORAL TWICE DAILY Comments: Last Taken: 04/11/16 Time: 10 AM Aspirin (Aspirin*) 81 MG TAB.CHEW 81 Milligram ORAL DAILY Comments: Last Taken: 04/11/16 Time: 10 AM Fluticasone Propionate (Flovent Hfa) 44 MCG AER.W.ADAP 2 Puff Inhale through mouth TWICE DAILY Comments: NOT TAKEN IN HOSPITAL Montelukast Sodium (Singulair) 10 MG TABLET 1 Tablet ORAL DAILY Comments: Last Taken: 04/11/16 Time: 10 AM Roflumilast (Daliresp) 500 MCG TABLET 1 Tablet ORAL DAILY Comments: NOT TAKEN IN HOSPITAL Alendronate Sodium (Alendronate Sodium) 70 MG TABLET 1 Tablet ORAL Once a Week Instructions: in the morning, at least 30 minutes before the first food, beverage, or medication of the day Comments: NOT TAKEN IN HOSPITAL Calcium Carbonate/Vitamin D3 (Calcium 600 + Vit D 800 Tab) 600 MG-800 TABLET 1 Tablet ORAL DAILY Comments: Last Taken: 04/11/16 Time: 10 AM Omeprazole (Omeprazole) 20 MG CAPSULE.DR 1 Capsule ORAL DAILY Comments: Last Taken: 04/11/16 Time: 10 AM Citalopram Hydrobromide (Celexa) 10 MG TABLET 1 Tablet ORAL DAILY Qty = 30 Start taking the following new medications: Diclofenac Sodium (Voltaren) 1 % GEL..GRAM. 1 Application On the skin 4 TIMES A DAY as needed for PAIN SCALE 1-3 (MILD) Qty = 1 No Refills Instructions: Apply to Right hip and knee as needed Melatonin (Melatonin) 5 MG TABLET 2 Tablet ORAL AT BEDTIME Qty = 60 No Refills Copies To: DANIAL ESCOBAR,NORA MONTALVO; JOSH WHITTINGTON APRN; RAGHAV ESCOBAR,[facility]
[2016-08-26 08:00] LABS: ABSOLUTE GRANULOCYTE CT 7.6 /CUMM (1.4-6.5); BASOPHIL % 0.2 % (0.0-2.0); GRANULOCYTE % 82.9 % (42.2-75.2); HEMATOCRIT 35.9 % (37-47); MEAN CORPUSCULAR HGB 29.1 PG (27.0-31.0); MEAN CORPUSCULAR HGB CONC 32.9 G/DL (33.0-37.0); MEAN CORPUSCULAR VOLUME 88.4 FL (81.0-99.0); MEAN PLATELET VOLUME 8.6 FL (7.4-10.4); PLATELET COUNT 284 /CUMM (130-400); RBC DISTRIBUTION WIDTH 16.3 % (11.5-14.5); RED BLOOD CELL CT 4.06 /CUMM (4.20-5.40)
[2016-08-26 08:06] LABS: WHITE BLOOD CELL COUNT 9.1 /CUMM (4.8-10.8)
--- NOTE | 2016-08-26 09:43 | Cons- Psychiatry ---
Psychiatric Consult Date of Consult: 08/26/16 Reason for Consult: "Intermittent confusion, most noticable in the morning. Hx of depression/anxiety " Ordered by Dr. Shanon Swain attending History of Present Illness: Identifying Info: 75-year-old female brought in by ambulance from [facility] on 08/25/2016 for weakness and altered mental status and weakness. CC: "I came to visit a friend and then I fell in the ladies room." HPI: The patient had been staying short-term at the long term and gone to bed and woke up the next morning with weakness and difficulty speaking. The previous night there were no concerns. Per the medics who arrived on scene the patient displayed slight confusion with broken speech that did not make sense. The patient was recently treated for urinary tract infection. She is currently slightly hyponatremic. Additionally her dose of mirtazapine was increased a few days ago to improve anxiety, appetite, and sleep. Collateral obtained from patient's daughter Kirsten. She reports that over the past 2 years the patient has frequently been confused during the morning. There does not seem to be any precipitating incidents or any factors that tend to make it worse or better. She often will make statements that do not make sense during these times. She typically clears around noon is not confused later in the day. The patient endorses a history of being treated outpatient for anxiety and depression for approximately 20 years. PMH: Please see the H&P for a complete listing Terminal COPD with FEV1 0.6L, femoral/iliac bypass graft, previous tobacco use quit 5 months ago, lung nodule on previous CT with unremarkable follow-up PET scan, CAD s/p CABG/stent placement, dipyridamole stress test on 11/23/15 indeterminate, HTN, HLD, anxiety, depression and recent hip fracture Past Psych History: -Outpatient Several previous treaters the patient cannot recall who her prescriber is. Review of meds claim history reveals previously Dr. Broussard was writting for psychotropics. -Inpatient None Family Psych History: Did not obtain Substance History Former smoker -Treatment None Family Substance History: Did not obtain Social: Born in [place] raised in and around [facility]. High school graduate with some college. 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 States she had to stop working due to take care of her now father. Currently lives in [place] with her daughter, son-in-law and 2 teenage grandchildren. Abuse/Trauma: Noncontributory Current Home Psychotropic Medications: Mirtazapine 15 mg daily at bedtime Citalopram 10 mg daily Diazepam 5 mg twice a day PRN anxiety Current Hospital Psychotropic Medications: Med Citalopram Hydrobromide 10 MG PO DAILY 08/25/16 1247 Diazepam 5 MG PO BID PRN 08/25/16 1300 Allergies: Coded Allergies: tramadol (Severe, severe cant walk 06/03/16) amoxicillin (From Augmentin) (Intermediate, GI DISTRESS 06/03/16) clavulanic acid (From Augmentin) (Intermediate, GI DISTRESS 06/03/16) Current Medications: Current Medications Sig/Manohar Start time Last Medication Dose Route Stop Time Status Admin Acetaminophen 650 MG ONCE ONE 08/25 2330 DC 08/26 PO 08/25 2331 0006 Acetaminophen 650 MG Q6P PRN 08/25 1200 AC 08/26 PO 0935 Acetaminophen 1,000 MG Q6P PRN 08/25 1200 AC IV Albuterol Sulfate 3 ML Q4H PRN 08/26 0915 AC INH Alendronate Sodium 70 MG QTUES 08/30 0700 AC PO Amlodipine Besylate 0 .STK-MED ONE 08/25 1226 DC PO Amlodipine Besylate 2.5 MG BID 08/25 1155 AC 08/26 PO 0834 Aspirin 81 MG DAILY 08/26 1000 AC 08/26 PO 0834 Budesonide/ 2 PUF BID 08/25 1155 AC 08/26 Formoterol Fumarate INH 0836 Carvedilol 6.25 MG BID 08/25 1200 AC 08/26 PO 0834 Citalopram 10 MG DAILY 08/25 1247 AC 08/26 Hydrobromide PO 0834 Clopidogrel Bisulfate 75 MG DAILY 08/26 1000 AC 08/26 PO 0834 Diazepam 5 MG BID PRN 08/25 1300 AC 08/26 PO 0006 Enoxaparin Sodium 40 MG DAILY 08/26 1000 AC SC Fenofibrate 145 MG DAILY 08/26 1000 AC 08/26 PO 0835 Furosemide 40 MG DAILY 08/26 1000 AC 08/26 PO 0834 Lisinopril 0 .STK-MED ONE 08/25 1226 DC PO Lisinopril 10 MG DAILY 08/25 1158 AC 08/26 PO 0834 Magnesium Oxide 800 MG ONE ONE 08/25 1615 DC 08/25 PO 08/25 1616 1707 Montelukast Sodium 10 MG DAILY 08/25 1157 AC 08/26 PO 0835 Morphine Sulfate 4 MG Q4P PRN 08/25 1200 AC IV Nitroglycerin 0.2 MG 1600 08/25 1600 AC TOP Nitroglycerin 0.2 MG DAILY 08/25 1157 DC 08/25 TOP 1557 Omeprazole 20 MG DAILY AC 08/26 0700 AC PO Omeprazole 0 .STK-MED ONE 08/25 1226 DC PO Omeprazole 20 MG DAILY 08/25 1158 DC 08/25 PO 1226 Roflumilast 500 MCG DAILY 08/25 1200 AC 08/26 PO 0838 Simvastatin 10 MG 1700 08/25 1700 AC 08/25 PO 1558 Tiotropium Bryson 1 PUF DAILY 08/25 1201 AC 08/26 INH 0836 Past History Past Medical History Neurological: restless leg syndrome EENT: hearing loss Cardiovascular: hypertension, hyperlipidemia, myocardial infarction Respiratory: COPD Gastrointestinal: constipation, diverticulitis Hepatic: SLUDGE IN GALL BLADDER Renal: NONE Musculoskeletal: NONE Psychiatric: anxiety, depression Endocrine: NONE Blood Disorders: CLOTS Cancer(s): NONE 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 Past Surgical History Surgical History: CABG, stents Psychosocial History Strengths/Capabilities: Supportive family, insight into mood and anxiety issues Physical Limitations (Interventions): Chronic medical illness, pain Psychiatric Treatment History Psych Treatment Psychiatric Treatment Yes (as above) Diagnosis: Unspecified anxiety disorder Unspecified depressive disorder Risk Factors: age (under 24/over 65), chronic/serious med cond., high anxiety/ distress Substance Use/Abuse History Drug Use/Abuse Substances Used/Abused No Substance Abuse Treatment Substance Abuse Treatment Past Substance Abuse [place] No Assessment/Plan Mental Status Mental Status Exam: Presentation/Appearance: Cooperative with evaluation. Hospital garb. Calm, pleasant. Sitting in chair. Orientation: x3, great difficulty naming Hospital, states her situation is she is here because she fell while visiting a friend Sensorium: Awake and alert Eye contact: Appropriate Affect: Somewhat constricted Mood: Anxious Depression: Denies Anxiety: Endorses Thought Content: - Denies SI/HI, AH/VH, PI. States and also believes they will not kill themselves. - Denies Hopeless/Helpless Thoughts Thought Process: Linear with brief moments of confusion Associations: Appropriate Speech: Normal tone and rate and volume Judgment: Fair Insight: Fair Cognition: Memory: Short-term deficits, intermediate frame tender intact, patient has word finding difficulties Attention/Concentration: Grossly intact, brief moments of impairment noted Fund of Knowledge: Adequate Abstractions: Did not assess MMSE: Did not assess Brief ROS Gait: Per report unsteady Sleep: Poor Appetite: Per report poor Energy: Fair IADLs/ADLs: With assist at present Lab Results: Laboratory Tests 08/26/16 0625: Anion Gap 15, Estimated GFR > 60, BUN/Creatinine Ratio 23.3, Phosphorus 2.9, Magnesium 1.6, CBC w Diff NO MAN DIFF REQ, RBC 4.06 L, MCV 88.4, MCH 29.1, RDW 16.3 H, MPV 8.6, Gran % 82.9 H, Lymphocytes % 7.7 L, Monocytes % 8.2, Eosinophils % 1.0, Basophils % 0.2, Absolute Granulocytes 7.6 H, Absolute Lymphocytes 0.7 L, Absolute Monocytes 0.7 H, Absolute Eosinophils 0.1, Absolute Basophils 0, PUBS MCHC 32.9 L 08/25/16 1900: Anion Gap 12, Estimated GFR > 60, BUN/Creatinine Ratio 21.7 08/25/16 1420: Anion Gap 11, Estimated GFR > 60, BUN/Creatinine Ratio 23.3 08/25/16 0745: Urine Color STRAW, Urine Clarity CLEAR, Urine pH 7.0, Ur Specific [place] 1.010, Urine Protein NEG, Urine Ketones NEG, Urine Nitrite NEG, Urine Bilirubin NEG, Urine Urobilinogen 0.2, Ur Leukocyte Esterase NEG, Ur Microscopic EXAM NOT REQUIRED, Urine Hemoglobin NEG, Urine Glucose NEG 08/25/16 0745: Urine Opiates Screen 171.00, Methadone Screen 58, Barbiturate Screen < 60, Ur Phencyclidine Scrn < 6.00, Amphetamines Screen < 100, U Benzodiazepines Scrn > 800.0 H, Urine Cocaine Screen < 50, Urine Cannabis Screen < 5.00, Urine Osmolality 277 L, Ur Random Creatinine 37.5, Ur Random Sodium 45, Ur Random Potassium 25.5, Fraction Sodium Excret 0.7 08/25/16 0648: Anion Gap 8, Estimated GFR > 60, BUN/Creatinine Ratio 21.4, Glucose 83, Serum Osmolality 271 L, Calcium 9.5, Phosphorus 3.3, Magnesium 1.5 L, Total Bilirubin 0.6, AST 25, ALT 30, Alkaline Phosphatase 44, Troponin I 0.01, Total Protein 6.7, Albumin 3.8, Globulin 2.9, Albumin/Globulin Ratio 1.3, PT 12.2, INR 1.16, APTT 38 H, CBC w Diff NO MAN DIFF REQ, RBC 3.91 L, MCV 87.8, MCH 28.9, RDW 16.2 H, MPV 8.5, Gran % 65.1, Lymphocytes % 22.9, Monocytes % 8.3, Eosinophils % 3.3, Basophils % 0.4, Absolute Granulocytes 3.4, Absolute Lymphocytes 1.2, Absolute Monocytes 0.4, Absolute Eosinophils 0.2, Absolute Basophils 0, PUBS MCHC 32.9 L Microbiology 08/25 0745 URINE ROUT: Urine Culture - RES Diffential Diagnosis: Unspecified neurocognitive disorder Delirium, mild, due to multiple etiologies By history unspecified depressive disorder By history unspecified anxiety disorder Impression: 75-year-old female presents to [facility] with confusion, weakness, difficulty speaking with an acute onset. Per report the patient does have a history of confusional states in the morning, this is a chronic issue that typically is self-limiting. Her current recent alterations may be attributable to residual symptoms from recent UTI, recent increase of mirtazapine which actions on H1 receptor can potentially increase confusion, hyponatremia and poor sleep. Due to underlying neurocognitive disorder she is at high risk for development of acute confusional states. Provisional Treatment Plan: 1. Please continue to avoid benzodiazepines, opioid analgesics, and meds with strong anticholinergic properties as much as possible to prevent further confusion. 2. Please initiate the following nonpharmacologic interventions: -Avoid nursing and medical procedures during sleep hours whenever possible - Cluster at night interventions that must be completed as much as possible to minimize sleep disruption - Decrease noise patient area during sleeping hours - Reduce lighting at night - Ensure patient has any sensory aids close by that he regularly uses 3. Please start melatonin 10 mg daily at bedtime. 4. Continues other psychotropics as currently ordered and use diazepam with caution. 5. If increased confusion does not resolve would recommend additional studies including: - Thyroid pannel - B12 & Folate - ESR - VDRL - Lyme titer - Head CT However would recommend holding off on these interventions at this time to see if patient mentation improves with current interventions prior to ordering additional invasive testing. 6. Recommend geriatrics consult 7. Recommend neurology consult for evaluation of underlying neurocognitive disorder, this may be more appropriate on an outpatient basis. Thank you for including psychiatry in this case we'll continue to follow.
[2016-08-26] MEDS ORDERED: MELATONIN5 M7 PO (11:55)
--- NOTE | 2016-08-26 12:00 | Patient Discharge Instructions ---
Discharge Instructions General Discharge Information You were seen/treated for: Altered mental status/delirium Low-sodium Elevated blood pressure Watch for these problems: Worsening confusion, agitation Difficulty sleeping Dizziness, worsening gait Special Instructions: Please follow-up with PCP within 1-2 weeks after discharge. Please take all medications as directed. Please obtain a geriatric consult outpatient Diet Recommended Diet: Heart Healthy Activity Activity Self Limited: Yes Acute Coronary Syndrome Inclusion Criteria At DC or during hospital stay patient has or had the following: ACS DIAGNOSIS No Discharge Core Measures Meds if any: Prescribed or Continued at Discharge Meds if any: NOT Prescribed or Continued at Discharge Congestive Heart Failure Inclusion Criteria At DC or during hospital stay patient has or had the following: CHF DIAGNOSIS No Discharge Core Measures Meds if any: Prescribed or Continued at Discharge Meds if any: NOT Prescribed or Continued at Discharge Cerebrovascular accident Inclusion Criteria At DC or during hospital stay patient has or had the following: CVA/TIA Diagnosis No Discharge Core Measures Meds if any: Prescribed or Continued at Discharge Meds if any: NOT Prescribed or Continued at Discharge Venous thromboembolism Inclusion Criteria VTE Diagnosis No VTE Type NONE VTE Confirmed by (Test) NONE Discharge Core Measures - Per Current guidelines, there needs to be overlap - treatment for the first 5 days of Warfarin therapy. - If discharged on Warfarin prior to 5 days of - overlap therapy, the patient will need to be - assessed for post discharge needs including - *Post discharge parental anticoagulation - *Warfarin and/or parental anticoagulation education - *Follow up date to check INR post discharge At least 5 days overlap therapy as Inpatient No Meds if any: Prescribed or Continued at Discharge Note: Overlap Therapy is Warfarin and Anticoagulant Meds if any: NOT Prescribed or Continued at Discharge
[2016-08-26] MEDS ORDERED: VOLTAREN100 GM TOP (13:35)
--- NOTE | 2016-08-26 14:47 | RADIOLOGY REPORT ---
EXAMINATION: XR HIP, RIGHT CLINICAL INFORMATION: Right hip pain after fall. COMPARISON: None TECHNIQUE: AP neutral and frog-leg lateral views of the right hip. FINDINGS: Bones and soft tissues are normal. No fracture. Alignment is anatomic. Hip joint space is maintained. IMPRESSION: No evidence for acute injury to the right hip.
[2016-08-26 15:35] VITALS: BP 140/88
[2016-08-26 17:02] VITALS: BP 140/88
== END 2016-08-26 17:45 ==
LOC: ERH 05:52 → ERHI 10:41 → 2NA 10:41 → ENRESERV 11:48 → 2NA 13:13
PROVIDERS: Internal Medicine; Pediatrics; ADMIT Internal Medicine
DX: E87.1 Hypo-osmolality and hyponatremia (principal); J44.9 Chronic obstructive pulmonary disease, unspecified; I25.810 Atherosclerosis of coronary artery bypass graft(s) without angina pectoris; I10 Essential (primary) hypertension; E78.5 Hyperlipidemia, unspecified; F41.9 Anxiety disorder, unspecified; F32.9 Major depressive disorder, single episode, unspecified; M25.561 Pain in right knee; W18.30XA Fall on same level, unspecified, initial encounter; Y92.002 Bathroom of unspecified non-institutional (private) residence as the place of occurrence of the external cause; I73.9 Peripheral vascular disease, unspecified; F03.90 Unspecified dementia, unspecified severity, without behavioral disturbance, psychotic disturbance, mood disturbance, and anxiety; R41.0 Disorientation, unspecified; I25.2 Old myocardial infarction; G25.81 Restless legs syndrome
CPT/HCPCS: 84133; 84300; 36415; 73502-RT; 73562-RT; 80307; 81003; 82436; 82570; 87086; 93005; 93010; 97116-GP; 97161-GP; 97530-GP; G0378; J0131; J1650; J3490

== ENCOUNTER 2017-08-21 15:55 | Inpatient (IN) | payer OTHER ==
[~2017-08-21] VITALS: Ht 154.9 cm; Wt 48.2 kg
[~2017-08-21 15:55] MED LIST changes: +BACTRIM 400-801 EACH PO; +CELEXA10 M1 PO; -COREG6.25 M1; +COREG6.25 M1 PO; +FLUTICASONE PRO16 GM NASB; +MELATONIN3 M4 PO; +MELATONIN5 M7 PO; +NORVASC10 M1 PO; -NORVASC2.5 M1 PO; +SENNA8.6 M3 PO; +TRAZODONE HCL50 M1 PO; +VOLTAREN100 GM TOP
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
[2017-08-21 17:32] LABS: ABSOLUTE BASOPHIL COUNT 0 /CUMM (0.0-0.2); ABSOLUTE EOSINOPHIL COUNT 0.1 /CUMM (0.0-0.7); ABSOLUTE GRANULOCYTE CT 5.8 /CUMM (1.4-6.5); ABSOLUTE LYMPH COUNT 1.3 /CUMM (1.2-3.4); ABSOLUTE MONOCYTE COUNT 0.7 /CUMM (0.10-0.60); BASOPHIL % 0.3 % (0.0-2.0); EOSINOPHIL % 0.9 % (0-5); GRANULOCYTE % 73.5 % (42.2-75.2); HEMATOCRIT 39.3 % (37-47); MEAN CORPUSCULAR HGB 29.9 PG (27.0-31.0); MEAN CORPUSCULAR HGB CONC 32.6 G/DL (33.0-37.0); MEAN CORPUSCULAR VOLUME 91.5 FL (81.0-99.0); MEAN PLATELET VOLUME 8.6 FL (7.4-10.4); PLATELET COUNT 296 /CUMM (130-400); RBC DISTRIBUTION WIDTH 13.7 % (11.5-14.5); RED BLOOD CELL CT 4.29 /CUMM (4.20-5.40); WHITE BLOOD CELL COUNT 7.9 /CUMM (4.8-10.8)
--- NOTE | 2017-08-21 18:43 | CT SCAN REPORT ---
EXAMINATION: CT HEAD WITHOUT CONTRAST CLINICAL INFORMATION: Hallucinations and altered mental status. COMPARISON: CT scan of the head 02/13/2017. TECHNIQUE: Contiguous axial imaging was performed from the skull base to vertex without intravenous administration of contrast. DLP: 615.81 mGy-cm FINDINGS: There is no evidence of acute intracranial hemorrhage or territorial infarction. No abnormal mass effect or midline shift is seen. Carranza to white matter differentiation is well preserved. No extra-axial fluid collections are identified. There is mild commensurate prominence of the ventricles and sulci consistent with volume loss. The study redemonstrates patchy areas of low attenuation in the periventricular and subcortical white matter, consistent with chronic microvascular ischemic changes. There are atheromatous calcifications of the cavernous internal carotid arteries. There have been bilateral lens extractions. The soft tissues are unremarkable. There are no acute osseous findings. The mastoid air cells and visualized portions of the paranasal sinuses are well aerated. IMPRESSION: 1. There are no acute bleeds or territorial infarcts. No masses are demonstrated. 2. There is mild diffuse volume loss and there are chronic microvascular ischemic changes.
--- NOTE | 2017-08-21 18:56 | CT SCAN REPORT ---
EXAMINATION: CT ABDOMEN AND PELVIS WITHOUT CONTRAST CLINICAL INFORMATION: Right flank pain. Right lower back pain. Right lower quadrant pain. COMPARISON: 10/31/2013 TECHNIQUE: Multidetector volumetric imaging was performed from the superior aspect of the liver through the pubic symphysis. Sagittal and coronal reformatted images were obtained on the technologist's workstation. DLP: 283 mGy-cm FINDINGS: LUNG BASES: There is lingular subsegmental atelectasis. Coronary artery calcifications present. LIVER, GALLBLADDER, AND BILIARY TREE: The liver is normal in size, shape, and attenuation. No focal hepatic lesion or biliary ductal dilatation is present. Cholecystectomy. PANCREAS: Unremarkable. SPLEEN: Unremarkable. ADRENAL GLANDS: Unremarkable. KIDNEYS AND URETERS: The kidneys are normal in size, shape, and attenuation. There is no hydroureteronephrosis. No renal or ureteral calculi. There is a focal calcification adjacent to the distal right ureter as seen on series 2 image 63 which is unchanged from previous and therefore not a ureteral calculus.. BLADDER: Unremarkable. GASTROINTESTINAL TRACT: The stomach is unremarkable. The small bowel is normal in caliber. There is no obstruction. Normal appendix. There is colonic diverticulosis. No evidence of diverticulitis. No wall thickening or inflammatory change. No free air. No free fluid. ABDOMINAL WALL: Small fat-containing ventral abdominal wall hernia. This is similar to previous. LYMPH NODES: Normal. VASCULAR: Normal caliber aorta with extensive atherosclerotic calcifications. Right vascular stent and bypass graft in place extending into the leg. PELVIC VISCERA: Unremarkable. OSSEOUS STRUCTURES: There is no acute or suspicious osseous abnormality. Mild degenerative changes in the spine. Mild degenerative changes in the hips. IMPRESSION: No acute findings of the abdomen or pelvis. No inflammatory changes. No hydronephrosis or nephrolithiasis. Normal appendix. Colonic diverticulosis without diverticulitis.
--- NOTE | 2017-08-21 20:45 | RADIOLOGY REPORT ---
EXAMINATION: XR PORTABLE CHEST CLINICAL INFORMATION: Altered mental status COMPARISON: 08/25/2016 TECHNIQUE: Portable frontal view of the chest was obtained. FINDINGS: Median sternotomy wires appear intact. Clips noted in the left upper quadrant. The lungs are well expanded. There is no consolidation, edema, or effusion. Minimal thorax. The cardiomediastinal silhouette is normal in size with a calcified aorta. IMPRESSION: No acute pulmonary finding.
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
[2017-08-21] MEDS ORDERED: ALDACTONE25 MG PO (23:04)
[2017-08-21] MEDS ORDERED: FERROUS SULFAT325 M3 PO (23:08)
[2017-08-21] MEDS ORDERED: PROTONIX40 M3 PO (23:15)
[2017-08-21] MEDS ORDERED: POTASSIUM CHLO20 ME4 PO (23:32)
[2017-08-21] MEDS ORDERED: RISPERIDONE0.5 M1 PO (23:34)
[2017-08-21] MEDS ORDERED: RISPERDAL0.25 M1 PO (23:34)
--- NOTE | 2017-08-21 23:36 | Admission Certification ---
Admission Certification Certification Statement - As attending physician, I certify that at the time of - admission, based on clinical presentation, severity of - symptoms, need for further diagnostic testing and - therapeutic interventions, and risk of adverse outcomes - without in-hospital treatment, in my clinical assessment, - this patient requires an acute hospital stay for a minimum - of two nights or longer. I have also considered psychsocial - factors such as support system, advanced age, financial - issues, cognitive issues, and failed out-patient treatments, - past re-admission history, safety of patient, and lack of - compliance as applicable. Specific rationale supporting this admission is: Hallucinations and delusions, Dementia with behavioural disturbance, Citrobacter UTI.
[2017-08-22 00:30] VITALS: BP 158/68
[2017-08-22 05:56] VITALS: BP 118/58
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
[2017-08-22 08:13] LABS: ABSOLUTE BASOPHIL COUNT 0 /CUMM (0.0-0.2); ABSOLUTE EOSINOPHIL COUNT 0.1 /CUMM (0.0-0.7); ABSOLUTE GRANULOCYTE CT 7.4 /CUMM (1.4-6.5); ABSOLUTE LYMPH COUNT 0.7 /CUMM (1.2-3.4); ABSOLUTE MONOCYTE COUNT 0.6 /CUMM (0.10-0.60); BASOPHIL % 0.3 % (0.0-2.0); EOSINOPHIL % 1.1 % (0-5); HEMATOCRIT 35.4 % (37-47); MEAN CORPUSCULAR HGB 30.6 PG (27.0-31.0); MEAN CORPUSCULAR HGB CONC 33.6 G/DL (33.0-37.0); MEAN CORPUSCULAR VOLUME 91.2 FL (81.0-99.0); MEAN PLATELET VOLUME 9.5 FL (7.4-10.4); RED BLOOD CELL CT 3.88 /CUMM (4.20-5.40); WHITE BLOOD CELL COUNT 8.8 /CUMM (4.8-10.8)
[2017-08-22 09:44] LABS: GRANULOCYTE % 83.5 % (42.2-75.2); PLATELET COUNT 249 /CUMM (130-400)
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
--- NOTE | 2017-08-22 14:02 | Cons- Infect Disease ---
General Information and HPI Consulting Request Date of Consult: 08/22/17 Requested By: Roni Martin MD Reason for Consult: Rule out urinary tract infection Source of Information: patient, old records Exam Limitations: dementia History of Present Illness: This is a 76-year-old woman custodial resident, with a history of end-stage COPD, hypertension, coronary artery disease, status post stent and CABG, peripheral vascular disease, depression and anxiety, diagnosed with dementia and behavioral disturbances one year prior to admission, with paranoid delusions and hallucinations over the past month, with multiple positive urine cultures over the past year, several positive for ESBL producing E. coli, with vague symptoms of decreased urination and lower abdominal discomfort, treated on one occasion with Bactrim, which caused a rash, with no treatment apparently administered for the subsequent infections until several days prior to admission, when she was begun on Levaquin, which was changed to Macrobid on the day of admission after the urine culture was found to be positive for Citrobacter resistant to Levaquin , admitted on August 21 because of auditory and visual hallucinations. On admission she was afebrile. Laboratory data revealed a white blood cell count of 8000, BUN/creatinine 13 and 0.7, AST/ALT 59 and 27. Urinalysis 15-[address] of the head was negative for any acute process. Chest x-ray was negative. CT of the abdomen and pelvis was also negative for any acute process. She was given Unasyn and Gentamicin in the emergency room and was then followed off antibiotics. She has remained afebrile overnight. Presently she complains of back pain but denies any specific urinary symptoms. Allergies/Medications Allergies: Coded Allergies: tramadol (Severe, severe cant walk 06/03/16) amoxicillin (From Augmentin) (Intermediate, GI DISTRESS 06/03/16) clavulanic acid (From Augmentin) (Intermediate, GI DISTRESS 06/03/16) Home Med List: Alendronate Sodium 70 MG TABLET 1 TAB PO QW OSTEOPOROSIS (Reported) in the morning, at least 30 minutes before the first food, beverage, or medication of the day Amlodipine Besylate (Norvasc) 10 MG TABLET 1 TAB PO DAILY HEART (Reported) Aspirin (Aspirin*) 81 MG TAB.CHEW 81 MG PO DAILY CARDIAC (Reported) Budesonide/Formoterol Fumarate (Symbicort 160-4.5 Mcg Inhaler) 160 MCG-4.5 MCG/ ACTUATION HFA.AER.AD 2 PUF INH BID COPD (Reported) Calcium Carbonate/Vitamin D3 (Calcium 600 + Vit D 800 Tab) 600 MG-800 TABLET 1 TAB PO DAILY OSTEOPOROSIS (Reported) Carvedilol (Coreg) 6.25 MG TABLET 1 TAB PO BID HBP (Reported) Citalopram Hydrobromide (Celexa) 10 MG TABLET 0.5 TAB PO DAILY DEPRESSION ( Reported) Clopidogrel Bisulfate (Clopidogrel) 75 MG TABLET 1 TAB PO DAILY BLOOD THINNER (Reported) Diazepam 5 MG TABLET 0.5 TAB PO TID . (Reported) Fenofibrate Nanocrystallized (Fenofibrate) 145 MG TABLET 1 TAB PO DAILY HIGH CHOLESTROL (Reported) Ferrous Sulfate 325 MG (65 MG IRON) TABLET 1 TAB PO BID SUPPLEMENT (Reported) Fluticasone Propionate 50 MCG/ACTUATION SPRAY.SUSP 2 SPRAY NASB QPM ALLERGIES (Reported) Furosemide (Lasix) 40 MG TABLET 1 TAB PO DAILY WATER PILL (Reported) Montelukast Sodium (Singulair) 10 MG TABLET 1 TAB PO QPM ALLERGIES (Reported) Nitroglycerin (Nitroglycerin Patch) 0.2 MG/HOUR PATCH.TD24 1 PAT TOP Q12 CHEST PAIN (Reported) Pantoprazole Sodium (Protonix) 40 MG TABLET.DR 1 TAB PO DAILY GI (Reported) Potassium Chloride 20 MEQ TABLET.ER 1 TAB PO DAILY SUPPLEMENT WITH LASIX ( Reported) Risperidone (Risperdal) 0.25 MG TABLET 1 TAB PO DAILY MENTAL HEALTH (Reported ) Risperidone 0.5 MG TABLET 1 TAB PO QPM MENTAL HEALTH (Reported) Roflumilast (Daliresp) 500 MCG TABLET 1 TAB PO DAILY COPD (Reported) Sennosides (Senna) 8.6 MG TABLET 2 TAB PO QPM CONSTIPATION (Reported) Spironolactone (Aldactone) 25 MG TABLET 1 TAB PO DAILY HTN (Reported) Past History Travel History Traveled to [place] past 21 day No Medical History Blood Transfusion Hx: Yes Neurological: dementia, restless leg syndrome EENT: hearing loss Cardiovascular: hypertension, hyperlipidemia, myocardial infarction, raynauds Respiratory: COPD Gastrointestinal: constipation, diverticulitis, GERD Hepatic: SLUDGE IN GALL BLADDER Renal: NONE Musculoskeletal: NONE Psychiatric: alcohol dependence, anxiety, depression, (HX) Endocrine: NONE Blood Disorders: CLOTS Cancer(s): NONE GRE[employer] SPECIALIST/Reproductive: NONE History of MRSA: No History of VRE: No History of CDIFF: No Isolation History: Contact Tetanus Vaccine: 01/10/15 Surgical History Surgical History: CABG, stents Family History Relations & Conditions If Any: MOTHER Relation not specified for: FH: CVA (cerebrovascular accident) Psychosocial History Where Do You Live? Extended Care Facility Who Do You Live With? self Services at Home: None Primary Language: Maori Smoking Status: Current Everyday Smoker ETOH Use: denies use Functional Ability ADLs Independent: dressing, eating, toileting, bathing. Review of Systems Review of Systems Constitutional: Reports: diaphoresis. Denies: chills, fever. Genitourinary: Denies: dysuria, frequency, hesitation, urgency. All Other Systems: Reviewed and Negative Exam & Diagnostic Data Last 24 Hrs of Vital Signs/I&O Vital Signs Date Time Temp Pulse Resp B/P B/P Pulse O2 O2 Flow FiO2 Mean Ox Delivery Rate 08/22 0942 81 120/60 08/22 0942 81 120/60 08/22 0556 98.8 81 20 118/58 98 Room Air 08/22 0041 88 158/68 08/22 0030 97.6 88 20 158/68 96 Room Air 08/21 2345 Room Air 08/21 2135 97.4 81 18 148/71 98 Room Air 08/21 1930 98.0 78 18 160/67 96 Room Air 08/21 1627 Room Air 08/21 1611 98.5 87 18 153/76 97 Room Air Room Air Intake & Output 08/22 1600 08/22 0800 08/22 0000 Intake Total 250 580 Output Total 300 Balance -50 580 Intake, IV 10 100 Intake, Oral 240 480 Number 0 Bowel Movements Output, Urine 300 Patient 106 lb Weight Weight Bed scale Measurement Method Physical Exam Other Physical Findings: She is awake and alert in no acute distress. She is afebrile. Skin reveals no rash. HEENT exam is negative. Neck is supple with no adenopathy. Lungs crackles at the right base. Heart regular rhythm with no murmur. Abdomen is soft, nontender with positive bowel sounds. Back no CVA tenderness; tender over the right iliac crest. Extremities no cyanosis, clubbing or edema. Neuro is without focality. Last 24 Hours of Lab Results: Laboratory Tests 08/22 08/22 08/21 0600 0556 1906 Chemistry Sodium (137 - 145 mmol/L) 141 Potassium (3.5 - 5.1 mmol/L) 3.6 Chloride (98 - 107 mmol/L) 100 Carbon Dioxide (22 - 30 mmol/L) 28 Anion Gap (5 - 16) 12 BUN (7 - 17 mg/dL) 12 Creatinine (0.5 - 1.0 mg/dL) 0.7 Estimated GFR (>60 ml/min) > 60 BUN/Creatinine Ratio (7 - 25 %) 17.1 Lactic Acid Cancelled Vitamin B12 (239 - 931 pg/mL) Pending 25-OH Vitamin D Total (30 - 100 ng/ml) Pending Folate (2.76 - 20.0 ng/mL) Pending TSH (0.270 - 4.200 uIU/mL) 1.380 Hematology CBC w Diff NO MAN DIFF REQ WBC (4.8 - 10.8 /CUMM) 8.8 RBC (4.20 - 5.40 /CUMM) 3.88 L Hgb (12.0 - 16.0 G/DL) 11.9 L Hct (37 - 47 %) 35.4 L MCV (81.0 - 99.0 FL) 91.2 MCH (27.0 - 31.0 PG) 30.6 MCHC (33.0 - 37.0 G/DL) 33.6 RDW (11.5 - 14.5 %) 14.0 Plt Count (130 - 400 /CUMM) 249 MPV (7.4 - 10.4 FL) 9.5 Gran % (42.2 - 75.2 %) 83.5 H Lymphocytes % (20.5 - 51.1 %) 7.7 L Monocytes % (1.7 - 9.3 %) 7.4 Eosinophils % (0 - 5 %) 1.1 Basophils % (0.0 - 2.0 %) 0.3 Absolute Granulocytes (1.4 - 6.5 /CUMM) 7.4 H Absolute Lymphocytes (1.2 - 3.4 /CUMM) 0.7 L Absolute Monocytes (0.10 - 0.60 /CUMM) 0.6 Absolute Eosinophils (0.0 - 0.7 /CUMM) 0.1 Absolute Basophils (0.0 - 0.2 /CUMM) 0 Serology RPR Titer/FTA Pending 08/21 08/21 1720 1715 Chemistry Sodium (137 - 145 mmol/L) 138 Potassium (3.5 - 5.1 mmol/L) 3.6 Chloride (98 - 107 mmol/L) 93 L Carbon Dioxide (22 - 30 mmol/L) 30 Anion Gap (5 - 16) 15 BUN (7 - 17 mg/dL) 13 Creatinine (0.5 - 1.0 mg/dL) 0.7 Estimated GFR (>60 ml/min) > 60 BUN/Creatinine Ratio (7 - 25 %) 18.6 Glucose (65 - 99 mg/dL) 88 Lactic Acid (0.7 - 2.1 mmol/L) 1.1 Calcium (8.4 - 10.2 mg/dL) 10.5 H Total Bilirubin (0.2 - 1.3 mg/dL) 0.8 AST (14 - 36 U/L) 59 H ALT (9 - 52 U/L) 27 Alkaline Phosphatase (<127 U/L) 46 Troponin I (< 0.11 ng/ml) 0.03 Total Protein (6.3 - 8.2 g/dL) 7.2 Albumin (3.5 - 5.0 g/dL) 4.2 Globulin (1.9 - 4.2 gm/dL) 3.0 Albumin/Globulin Ratio (1.1 - 2.2 %) 1.4 Hematology CBC w Diff NO MAN DIFF REQ WBC (4.8 - 10.8 /CUMM) 7.9 RBC (4.20 - 5.40 /CUMM) 4.29 Hgb (12.0 - 16.0 G/DL) 12.8 Hct (37 - 47 %) 39.3 MCV (81.0 - 99.0 FL) 91.5 MCH (27.0 - 31.0 PG) 29.9 MCHC (33.0 - 37.0 G/DL) 32.6 L RDW (11.5 - 14.5 %) 13.7 Plt Count (130 - 400 /CUMM) 296 MPV (7.4 - 10.4 FL) 8.6 Gran % (42.2 - 75.2 %) 73.5 Lymphocytes % (20.5 - 51.1 %) 16.8 L Monocytes % (1.7 - 9.3 %) 8.5 Eosinophils % (0 - 5 %) 0.9 Basophils % (0.0 - 2.0 %) 0.3 Absolute Granulocytes (1.4 - 6.5 /CUMM) 5.8 Absolute Lymphocytes (1.2 - 3.4 /CUMM) 1.3 Absolute Monocytes (0.10 - 0.60 /CUMM) 0.7 H Absolute Eosinophils (0.0 - 0.7 /CUMM) 0.1 Absolute Basophils (0.0 - 0.2 /CUMM) 0 Toxicology Urine Opiates Screen (>2000 NG/ML) 135 Methadone Screen (>300 NG/ML) 55 Barbiturate Screen (>200 NG/ML) < 60 Ur Phencyclidine Scrn (>25 NG/ML) < 6.00 Amphetamines Screen (>1000 NG/ML) < 100 U Benzodiazepines Scrn (>200 NG/ML) > 800 H Urine Cocaine Screen (>300 NG/ML) < 50 Urine Cannabis Screen (>50 NG/ML) < 5.00 Serum Alcohol (<10 MG/DL) < 10.0 Urines Urine Color (YEL,AMB,STR) YEL Urine Clarity (CLEAR) CLEAR Urine pH (5.0 - 8.0) 7.0 Ur Specific Sinclair (1.001 - 1.035) <= 1.005 Urine Protein (NEG,<30 MG/DL) NEG Urine Ketones (NEG) NEG Urine Nitrite (NEG) NEG Urine Bilirubin (NEG) NEG Urine Urobilinogen (0.1 - 1.0 EU/dl) 0.2 Ur Leukocyte Esterase (NEG) LARGE H Ur Microscopic SEDIMENT EXAMINED Urine WBC (0 - 2 /HPF) 15-25 H Ur Epithelial Cells (NONE,FEW) MOD H Urine Bacteria (NEG/NONE) MOD H Urine Hemoglobin (NEG) NEG Urine Glucose (N MG/DL) NEG Last 24 Hours of Hernandez Results: Blood cultures August 21 negative Urine culture August 21 negative Urine culture August 19 greater than 100,000 colonies of Citrobacter sensitive to Augmentin, Unasyn, Gentamicin, Nitrofurantoin and Bactrim Urine culture August 08 multiple colony types consistent with contamination Diagnostic Data Recent Imaging Findings: CT of the head was negative for any acute process. Chest x-ray was negative. CT of the abdomen and pelvis was also negative for any acute process. Assessment/Plan Assessment/Plan Impression: This is a 76-year-old woman, custodial resident, diagnosed with dementia and behavioral disturbances one year prior to admission, with paranoid delusions and hallucinations over the past month, with multiple positive urine cultures over the past year, with vague symptoms of decreased urination and lower abdominal discomfort, recently begun on Levaquin and changed to Macrobid for a urine culture positive for Citrobacter resistant to Levaquin, admitted on August 21 because of auditory and visual hallucinations, found to be afebrile with a normal white blood cell count and pyuria. The significance of her recent positive urine culture is unclear. I suspect that it represents either contamination or asymptomatic bacteriuria as her symptoms are vague and not clearly diagnostic of a urinary tract infection. Her back pain appears to be musculoskeletal in nature rather than CVA tenderness and , in the absence of fever or leukocytosis, do not suspect pyelonephritis. Her mental status has been altered for at least one year and, therefore, is not likely related to her positive urine cultures. Suggestion: 1. Continue to follow off antibiotics Consult Acknowledgment - Thank you for your consult request.
[2017-08-22 14:44] VITALS: BP 114/60
--- NOTE | 2017-08-22 16:38 | ULTRASOUND REPORT ---
EXAMINATION: US RETROPERITONEAL COMPLETE (RENAL) CLINICAL INFORMATION: Recurrent UTI (5 in the past year). CVA tenderness on the right side. Rule out acute pathology. COMPARISON: CT scan of the abdomen and pelvis dated 08/21/2017. TECHNIQUE: Real-time imaging of the kidneys and bladder. FINDINGS: RIGHT KIDNEY: 10.2 x 4.6 x 4.5 cm (SAG x AP x TRV). The kidney is normal in size, contour, and echogenicity. Renal cortical thickness is normal. No calculi or focal parenchymal lesions. No hydronephrosis. LEFT KIDNEY: 9.8 x 4.7 x 3.9 cm (SAG x AP x TRV). The kidney is normal in size, contour, and echogenicity. Renal cortical thickness is normal. No calculi or focal parenchymal lesions. No hydronephrosis. BLADDER: Well-distended and normal. Bilateral ureteral jets are demonstrated. Prevoid bladder volume is 353 mL. Postvoid bladder volume could not be assessed as the patient is unable to void. IMPRESSION: 1. Normal kidneys. 2. Normal bladder. Please note, however, the patient was unable to void and post void residual could therefore not be obtained.
[2017-08-22 20:48] VITALS: BP 122/70
[2017-08-23 06:56] VITALS: BP 116/60
--- NOTE | 2017-08-23 07:23 | PN- Housestaff ---
Anthony ESCOBAR,[facility] 08/23/17 0723: Subjective Follow-up For: Deliruim/Dementia Subjective: Ms Carnes was seen and examined this morning. Resting comfortably in bed. Denies any issues overnight. States that she was able to get some rest. Denies any fever, chills, nausea, vomiting. States that she feels well at the moment. Review of Systems Constitutional: Reports: see HPI. Objective Last 24 Hrs of Vital Signs/I&O Vital Signs Date Time Temp Pulse Resp B/P B/P Pulse O2 O2 Flow FiO2 Mean Ox Delivery Rate 08/23 1434 98.4 77 18 124/78 94 08/23 0842 68 128/58 08/23 0842 68 128/58 08/23 0800 68 18 128/58 08/23 0656 98.0 68 18 116/60 95 08/22 2048 98.1 78 18 122/70 94 Room Air 08/22 2004 78 122/70 Intake & Output 08/23 1600 08/23 0800 08/23 0000 Intake Total 093 189 0644 Output Total 600 100 Balance 638 612 9159 Intake, IV 600 Intake, Oral 720 200 800 Number 1 Bowel Movements Output, Urine 600 100 Physical Exam General Appearance: Alert, Oriented X3, No Acute Distress Skin: No Rashes Cardiovascular: Regular Rate, Normal S1, Normal S2 Lungs: Clear to Auscultation, Normal Air Movement Abdomen: Normal Bowel Sounds, Soft, No Tenderness Neurological: Normal Speech Extremities: No Edema Current Medications: Current Medications Sig/Manohar Start time Last Medication Dose Route Stop Time Status Admin Acetaminophen 650 MG Q6P PRN 08/21 2299 AC PO Acetaminophen 1,000 MG Q6P PRN 08/21 230 AC IV Amlodipine Besylate 10 MG DAILY 08/22 899 AC 08/23 PO 0842 Aspirin 81 MG DAILY 08/22 899 AC 08/23 PO 0842 Budesonide/ 2 PUF BID 08/21 2308 AC 08/23 Formoterol Fumarate INH 0840 Calcium/Vitamin D 1 TAB DAILY 08/22 899 AC 08/23 PO 0842 Carvedilol 6.25 MG BID 08/21 230 AC 08/23 PO 0842 Clopidogrel Bisulfate 75 MG DAILY 08/22 899 AC 08/23 PO 0842 Diazepam 2 MG TIDPRN 08/23 1232 DC PO Diazepam 2 MG TID 08/23 1030 AC 08/23 PO 1440 Diazepam 2 MG TID 08/23 914 DC PO Diazepam 2 MG TIDPRN PRN 08/22 1232 DC PO 08/23 1231 Donepezil HCl 5 MG DAILY 08/23 09 AC 08/23 PO 0842 Enoxaparin Sodium 40 MG DAILY 08/22 09 AC 08/23 SC 0843 Fenofibrate 145 MG DAILY 08/22 09 AC 08/23 PO 0842 Ferrous Sulfate 325 MG BID 08/21 2309 AC 08/23 PO 0842 Fluticasone 2 SPRAY QPM 08/22 2099 AC 08/22 Propionate HENRI 2004 Furosemide 20 MG QPM 08/22 2099 AC 08/22 PO 2004 Furosemide 40 MG DAILY 08/22 09 AC 08/23 PO 0842 Montelukast Sodium 10 MG QPM 08/22 2099 AC 08/22 PO 2003 Nitroglycerin 0.2 MG Q12 08/22 09 AC 08/23 TOP 0839 Non-Formulary 0 SEE ADMIN CRITERIA 08/22 1545 DC Medication ANY Omeprazole 40 MG DAILY AC 08/22 07 AC 08/23 PO 0514 Potassium Chloride 20 MEQ DAILY 08/22 09 AC 08/23 PO 0842 Risperidone 0.25 MG DAILY 08/22 09 AC 08/23 PO 0842 Risperidone 0.5 MG QPM 08/21 2345 AC 08/22 PO 2004 Roflumilast 500 MCG DAILY 08/22 09 AC 08/23 PO 0842 Senna 374 MG AT BEDTIME 08/22 2099 AC 08/22 PO 2004 Sodium Chloride 1,000 ML ONCE ONE 08/22 0645 DC 08/22 IV 08/23 2003 0657 Spironolactone 25 MG DAILY 08/22 09 AC 08/23 PO 0841 Tiotropium [place] 1 PUF DAILY 08/23 0900 AC 08/23 INH 0841 Last 24 Hrs of Lab/Hernandez Results Last 24 Hrs of Labs/Mics: Laboratory Tests 08/23/17 0657: Anion Gap 11, Estimated GFR > 60, BUN/Creatinine Ratio 18.6, PTH Intact 46.1, CBC w Diff NO MAN DIFF REQ, RBC 3.48 L, MCV 91.7, MCH 30.7, MCHC 33.5, RDW 14.5 , MPV 9.5, Gran % 68.8, Lymphocytes % 19.3 L, Monocytes % 8.6, Eosinophils % 3.0, Basophils % 0.3, Absolute Granulocytes 4.3, Absolute Lymphocytes 1.2, Absolute Monocytes 0.5, Absolute Eosinophils 0.2, Absolute Basophils 0 08/23/17 0600: Lyme Disease Antibody 0.20 Assessment/Plan Assessment: Ms Wilhelm is a 76 y/o lady w/ a PMH terminal COPD with FEV1 0.6L, femoral/ iliac bypass graft, prev, lung nodule on previous CT with unremarkable follow-up PET scan, CAD s/p CABG/stent placement, dipyridamole stress test on 11/23/15 indeterminate, HTN, HLD, anxiety, depression and recent hip fracture was BIBA from [facility] for new onset altered mentation. She is currenlty being managed on the general medical service for the following problems. #Altered mental status #Hx Of COPD #Benzodiazepine Overuse #History of anxiety and mood disorder. #Low Vitamin D #Chronic medical problems. #Altered mental status Patient's altered mental status seems to be chronic, in gradually evolving/ worsening Continue inpatient managment Psychiatry consultation, Aricept 5mg. ID consultation, recommends following the patient off antibiotics. Will monitor closely. #Benzodiazepine Overuse Currently on 2 mg TID. Will Attempt to Titrate down. #Low Vitamin D Continue Oral Vitamin D #Chronic Medical Problems Medications reviewed with nurse Zuleyka at facility. Incentive spirometer Diet: Heart healthy diet with fluid restriction at 1800 ml (as in ECF, to avaoid hyponatremia) DVT ppx: SQ Lovenox and ALPS Code status: Full code Problem List: 1. Altered mental status Pain Ratin Pain Location: No Pain Pain Goal: Remain pain free Pain Plan: Tylenol PRN Tomorrow's Labs & Rationales: No Labs Roni Martin 08/23/17 1511: Attending MD Review Statement Attending Statement Attending MD Statement: examined this patient, discuss w/resident/PA/[employer], agreed w/resident/PA/[employer], reviewed EMR data (avail), discussed with nursing, discussed with case mgmt Attending Assessment/Plan: D/w ID- cont to follow off abx for now. Renal ultrasound done was ok. Dementia workup ordered per [facility] recommendations. Pt has low vit D and started on supplements. CT head shows -"mild diffuse volume loss and there are chronic microvascular ischemic changes." d/w pt the care plan.
[2017-08-23 08:00] VITALS: BP 128/58
[2017-08-23 09:14] LABS: ABSOLUTE BASOPHIL COUNT 0 /CUMM (0.0-0.2); ABSOLUTE EOSINOPHIL COUNT 0.2 /CUMM (0.0-0.7); ABSOLUTE GRANULOCYTE CT 4.3 /CUMM (1.4-6.5); ABSOLUTE LYMPH COUNT 1.2 /CUMM (1.2-3.4); ABSOLUTE MONOCYTE COUNT 0.5 /CUMM (0.10-0.60); BASOPHIL % 0.3 % (0.0-2.0); GRANULOCYTE % 68.8 % (42.2-75.2); HEMATOCRIT 31.9 % (37-47); MEAN CORPUSCULAR HGB 30.7 PG (27.0-31.0); MEAN CORPUSCULAR HGB CONC 33.5 G/DL (33.0-37.0); MEAN CORPUSCULAR VOLUME 91.7 FL (81.0-99.0); MEAN PLATELET VOLUME 9.5 FL (7.4-10.4); PLATELET COUNT 244 /CUMM (130-400); RBC DISTRIBUTION WIDTH 14.5 % (11.5-14.5); RED BLOOD CELL CT 3.48 /CUMM (4.20-5.40); WHITE BLOOD CELL COUNT 6.3 /CUMM (4.8-10.8)
--- NOTE | 2017-08-23 10:28 | PN- Infect Dx ---
Subjective Subjective: Afebrile without complaints. Objective Last 24 Hrs of Vital Signs/I&O Vital Signs Date Time Temp Pulse Resp B/P B/P Pulse O2 O2 Flow FiO2 Mean Ox Delivery Rate 08/24 0742 68 128/58 08/23 0842 68 128/58 08/23 0656 98.0 68 18 116/60 95 08/22 2048 98.1 78 18 122/70 94 Room Air 08/23 2003 78 122/70 08/22 1444 98.2 55 20 114/60 95 Room Air Intake & Output 08/23 1600 08/23 0800 05 0000 Intake Total 200 1400 Output Total 100 Balance 100 1400 Intake, IV 600 Intake, Oral 200 800 Output, Urine 100 Physical Exam Other Physical Findings: She appears comfortable in no acute distress Abdomen is mildly distended, questionable tenderness on palpation over the lower abdomen, with no guarding or rebound Back no CVA tenderness Results Last 24 Hours of Lab Results: Laboratory Tests 08/23 08/23 0657 0600 Chemistry Sodium (137 - 145 mmol/L) 143 Potassium (3.5 - 5.1 mmol/L) 3.5 Chloride (98 - 107 mmol/L) 105 Carbon Dioxide (22 - 30 mmol/L) 27 Anion Gap (5 - 16) 11 BUN (7 - 17 mg/dL) 13 Creatinine (0.5 - 1.0 mg/dL) 0.7 Estimated GFR (>60 ml/min) > 60 BUN/Creatinine Ratio (7 - 25 %) 18.6 PTH Intact (18.4 - 80.1 pg/ML) Pending Hematology CBC w Diff NO MAN DIFF REQ WBC (4.8 - 10.8 /CUMM) 6.3 RBC (4.20 - 5.40 /CUMM) 3.48 L Hgb (12.0 - 16.0 G/DL) 10.7 L Hct (37 - 47 %) 31.9 L MCV (81.0 - 99.0 FL) 91.7 MCH (27.0 - 31.0 PG) 30.7 MCHC (33.0 - 37.0 G/DL) 33.5 RDW (11.5 - 14.5 %) 14.5 Plt Count (130 - 400 /CUMM) 244 MPV (7.4 - 10.4 FL) 9.5 Gran % (42.2 - 75.2 %) 68.8 Lymphocytes % (20.5 - 51.1 %) 19.3 L Monocytes % (1.7 - 9.3 %) 8.6 Eosinophils % (0 - 5 %) 3.0 Basophils % (0.0 - 2.0 %) 0.3 Absolute Granulocytes (1.4 - 6.5 /CUMM) 4.3 Absolute Lymphocytes (1.2 - 3.4 /CUMM) 1.2 Absolute Monocytes (0.10 - 0.60 /CUMM) 0.5 Absolute Eosinophils (0.0 - 0.7 /CUMM) 0.2 Absolute Basophils (0.0 - 0.2 /CUMM) 0 Serology Lyme Disease Antibody Pending Last 24 Hours of Hernandez Results: Blood cultures August 21 negative Urine culture August 21 negative Recent Imaging Studies: Renal ultrasound August 22 normal kidneys and bladder Assessment/Plan ID Impression: Stable, with temperatures and white blood cell count remaining normal, off antibiotics with her recent blood and urine cultures negative. She may have an element of urinary retention, as she was unable to void during the recent renal ultrasound, which revealed a prevoid bladder volume of 353 cc. Suggestion: 1. Would check a postvoid residual with a bladder scan 2. Continue to follow off antibiotics
[2017-08-23 14:34] VITALS: BP 124/78
[2017-08-23 21:50] VITALS: BP 118/58
[2017-08-24 05:48] VITALS: BP 122/68
--- NOTE | 2017-08-24 07:24 | PN- Housestaff ---
Anthony ESCOBAR,[facility] 08/24/17 0724: Subjective Follow-up For: Deliruim/Dementia Subjective: Ms Wilhelm was seen and examined this morning. She is resting comfrtably in the chair beside her bed. States she was able to sleep well last night. She does endorse some hip pain, rated at an 8/10 in severity. States that it is worse when she walks. Denies any loss of sensation or motor weakness. Denies fever, chills, nausea or vomiting. She does not endorse any dysuria or urinary frequency. Review of Systems Constitutional: Reports: see HPI. Objective Last 24 Hrs of Vital Signs/I&O Vital Signs Date Time Temp Pulse Resp B/P B/P Pulse O2 O2 Flow FiO2 Mean Ox Delivery Rate 08/24 1401 97.8 104 20 128/68 95 Room Air 08/24 0859 14 132/68 08/24 0858 74 132/68 08/24 0814 Room Air Room Air 08/24 0548 98.9 62 20 122/68 94 Room Air 08/23 2150 98.2 83 18 118/58 94 Intake & Output 08/24 1600 08/24 0800 08/24 0000 Intake Total 600 120 850 Output Total 400 450 Balance 600 -280 400 Intake, Oral 600 120 850 Output, Urine 400 450 Physical Exam General Appearance: Alert, Oriented X3, Cooperative, No Acute Distress Cardiovascular: Normal S1, Normal S2 Lungs: Clear to Auscultation Abdomen: Normal Bowel Sounds, Soft, No Tenderness Neurological: Normal Speech, Strength at 5/5 X4 Ext Extremities: Mild tenderness elicited in the right lower flank. Vascular: Normal Pulses Current Medications: Current Medications Sig/Manohar Start time Last Medication Dose Route Stop Time Status Admin Acetaminophen 650 MG Q6P PRN 08/21 2299 AC PO Acetaminophen 1,000 MG Q6P PRN 08/21 230 AC IV Amlodipine Besylate 10 MG DAILY 08/22 899 AC 08/24 PO 0859 Aspirin 81 MG DAILY 08/22 899 AC 08/24 PO 0858 Budesonide/ 2 PUF BID 08/21 2308 AC 08/24 Formoterol Fumarate INH 0859 Calcium/Vitamin D 1 TAB DAILY 08/22 899 AC 08/24 PO 0858 Carvedilol 6.25 MG BID 08/21 2306 AC 08/24 PO 0858 Clopidogrel Bisulfate 75 MG DAILY 08/22 0900 AC 08/24 PO 0859 Diazepam 2 MG BID 08/24 2100 AC PO Diazepam 1 MG 1600 08/24 1600 DC 08/24 PO 08/24 1601 1540 Diazepam 1.5 MG TID 08/24 1400 CAN PO Diazepam 2 MG TID 08/23 1030 DC 08/24 PO 0858 Donepezil HCl 5 MG DAILY 08/23 0900 AC 08/24 PO 0858 Enoxaparin Sodium 40 MG DAILY 08/22 0900 AC 08/24 SC 0859 Fenofibrate 145 MG DAILY 08/22 0900 AC 08/24 PO 0859 Ferrous Sulfate 325 MG BID 08/21 2309 AC 08/24 PO 0858 Fluticasone 2 SPRAY QPM 08/22 2100 AC 08/23 Propionate HENRI 2020 Furosemide 20 MG QPM 08/22 2100 AC 08/23 PO 2020 Furosemide 40 MG DAILY 08/22 0900 AC 08/24 PO 0858 Montelukast Sodium 10 MG QPM 08/22 2100 AC 08/23 PO 2020 Nitroglycerin 0.2 MG Q12 08/22 0900 AC 08/24 TOP 0859 Omeprazole 40 MG DAILY AC 08/22 0700 AC 08/24 PO 0528 Potassium Chloride 20 MEQ DAILY 08/22 0900 AC 08/24 PO 0858 Risperidone 0.5 MG ONCE PRN 08/24 1445 DC PO 08/24 2045 Risperidone 0.25 MG DAILY 08/22 0900 AC 08/24 PO 0859 Risperidone 0.5 MG QPM 08/21 2345 AC 08/23 PO 2020 Roflumilast 500 MCG DAILY 08/22 0900 AC 08/24 PO 0858 Senna 374 MG AT BEDTIME 08/22 2100 AC 08/23 PO 2020 Spironolactone 25 MG DAILY 08/22 0900 AC 08/24 PO 0858 Tiotropium [place] 1 PUF DAILY 08/23 0900 AC 08/24 INH 0859 Trazodone HCl 12.5 MG ONCE PRN 08/24 1430 DC PO 08/24 2030 Trazodone HCl 25 MG AT BEDTIME NEED.. 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 She is currenlty being managed on the general medical service for the following problems. #Altered mental status #Hx Of COPD #Benzodiazepine Overuse #History of anxiety and mood disorder. #Low Vitamin D #Chronic medical problems. #Altered mental status Patient's altered mental status seems to be chronic, in gradually evolving/ worsening Continue inpatient managment Psychiatry consultation recommended: Aricept 5mg. ID consultation, recommends following the patient off antibiotics. Will monitor closely. #Benzodiazepine Overuse Currently on 2 mg TID. Will Attempt to Titrate down, 2 mg BID and 1 mg at 1600, total 5 mg, Will reduce to 4 mg tomorrow, if not signs of withdrawal. #Low Vitamin D Continue Oral Vitamin D #Chronic Medical Problems Medications reviewed with nurse Zuleyka at facility. Incentive spirometer Diet: Heart healthy diet with fluid restriction at 1800 ml (as in ECF, to avoid hyponatremia) DVT ppx: SQ Lovenox and ALPS Code status: Full code Problem List: 1. Hypercalcemia 2. Delirium 3. Anxiety 4. Altered mental status Pain Ratin Pain Location: Right Flank Pain Goal: Remain pain free Pain Plan: Tylenol PRN Tomorrow's Labs & Rationales: BEP: monitor electrolytes CBC: monitoring H/H in the setting of drop Calcium: monitoring hypercalcemia Roni Martin 08/24/17 1516: Attending MD Review Statement Attending Statement Attending MD Statement: examined this patient, discuss w/resident/PA/FITTINGS FINISHER, agreed w/resident/PA/FITTINGS FINISHER, reviewed EMR data (avail), discussed with nursing, discussed with case mgmt Attending Assessment/Plan: Dementia with behavioral changes- d/w case managment. they are looking for a place for her . likely at [facility]. Staying afebrile. cont to monitor off abx.
--- NOTE | 2017-08-24 09:31 | Patient Discharge Instructions ---
Discharge Instructions General Discharge Information You were seen/treated for: Delirium/Dementia Special Instructions: Please follow up with your PCP within 7 seven days. Please Have your PCP conduct a careful medication reconcilliation. please continue to take your newly prescribed medications as directed. Diet Continue normal diet: Yes Recommended Diet: Heart Healthy Acute Coronary Syndrome Inclusion Criteria At DC or during hospital stay patient has or had the following: ACS DIAGNOSIS No Discharge Core Measures Meds if any: Prescribed or Continued at Discharge Meds if any: NOT Prescribed or Continued at Discharge Congestive Heart Failure Inclusion Criteria At DC or during hospital stay patient has or had the following: CHF DIAGNOSIS No Discharge Core Measures Meds if any: Prescribed or Continued at Discharge Meds if any: NOT Prescribed or Continued at Discharge Cerebrovascular accident Inclusion Criteria At DC or during hospital stay patient has or had the following: CVA/TIA Diagnosis No Discharge Core Measures Meds if any: Prescribed or Continued at Discharge Meds if any: NOT Prescribed or Continued at Discharge Venous thromboembolism Inclusion Criteria VTE Diagnosis No VTE Type NONE VTE Confirmed by (Test) NONE Discharge Core Measures - Per Current guidelines, there needs to be overlap - treatment for the first 5 days of Warfarin therapy. - If discharged on Warfarin prior to 5 days of - overlap therapy, the patient will need to be - assessed for post discharge needs including - *Post discharge parental anticoagulation - *Warfarin and/or parental anticoagulation education - *Follow up date to check INR post discharge At least 5 days overlap therapy as Inpatient No Meds if any: Prescribed or Continued at Discharge Note: Overlap Therapy is Warfarin and Anticoagulant Meds if any: NOT Prescribed or Continued at Discharge
--- NOTE | 2017-08-24 11:14 | PN- Psychiatry ---
Assessment/Plan Suggestion: see imp Subjective Subjective: see imp Objective Last 24 Hrs of Vital Signs/I&O Vital Signs Date Time Temp Pulse Resp B/P B/P Pulse O2 O2 Flow FiO2 Mean Ox Delivery Rate 08/24 0859 14 132/68 08/24 0858 74 132/68 08/24 0814 Room Air Room Air 08/24 0548 98.9 62 20 122/68 94 Room Air 08/23 2150 98.2 83 18 118/58 94 08/23 2020 83 118/58 08/23 1434 98.4 77 18 124/78 94 Intake & Output 08/24 1600 08/24 0800 08/24 0000 Intake Total 120 850 Output Total 400 450 Balance -280 400 Intake, Oral 120 850 Output, Urine 400 450 see imp Subjective Subjective: see imp Objective Last 24 Hrs of Vital Signs/I&O Vital Signs Date Time Temp Pulse Resp B/P B/P Pulse O2 O2 Flow FiO2 Mean Ox Delivery Rate 08/25 0759 14 132/68 08/24 0858 74 132/68 08/24 0814 Room Air Room Air 08/24 0548 98.9 62 20 122/68 94 Room Air 08/23 2150 98.2 83 18 118/58 94 08/23 2020 83 118/58 08/23 1434 98.4 77 18 124/78 94 Intake & Output 08/24 1600 08/24 0800 08/24 0000 Intake Total 120 850 Output Total 400 450 Balance -280 400 Intake, Oral 120 850 Output, Urine 400 450
--- NOTE | 2017-08-24 11:16 | PN- Psychiatry ---
Assessment/Plan Impression: I saw Trice this am with medical team. At first she is outisde her door looking around. She is redirectable asked to go to her room to talk. Nurse and sitter report she is hallucinating. I asked what she heard and she said she "heard her daughter and boyfriend come in banging the door downstairs because they had to come for the appointment and I thought I needed to be at the appointment too..." We explained to Trice that she needs to go to [facility] for her confusion. She is staunch that she is not confused and that what she says is happening is happening. Her UTI cleared. Her VSS as we taper her diazepam. Collateral: I spoke with the Nurse Grain Elevator Worker Briseida and Trice's PA Felicia Medel. Trice has had a rather steep decline since June. For about a year she was "a little off" showing some signs of confusion but overall independent. "She can hide it well." Nurse brokerage branch manager states since June she has been having visual hallucinations that people are coming in the window. She has also been acting out babysitting a baby. Staff noticed a pronounced decline in her functioning and increased psychosis during the past two and a half months. They monitored her labs closely. Psychiatrist eventually called in and increased her Risperdal and stated she was no longer competent and so did the paperwork for an stat conservatorship. Daughter is SUZANNE. MSE: Elderly woman with red hair in casual clothes. She is at her door looking around. She states she remembers me from two days ago. she is alert and oriented to [facility]. Her movements are somewhat slowed. She endorses walking with a stoop. She is upset over having to go to [facility]. "They think that what Im saying isnt5 real??" Her affect appears somewhat constricted but not depressed. she is not paranoid about medical care here. Her thought process is sometimes linear and then she veers off. Thought content reveals delusions that are persecutory. Her insight concerning the hallucinations and delusions is poor and judgment is fair given that she is willing to go to [facility]. A/ 76 y/o F who presented to with mental status change and UTI. She may have had some subtle delirium on top of dementia but her orientation is somewhat improved and her confusion most likely represents her baseline. 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 No apparent mood disorder. #1) Continue to taper her diazepam; would decrease to 1.5 mg TID as tolerated monitor vitals/CIWA. #2) Juanito Lino does not feel she can return there for care unless she is seen by [facility] given she was so paranoid she was found hidden with a hammer. #3) Her symptoms warrant an increase in her antipsychotic but this will give her an increased risk of stroke and other morbidities. We can increase to 0.5 mg BID at your discretion but a significant increase will be most safely accomplished in the context of a longer stay on an inpatient [facility] unit. Page with any questions. JScruggsMD #[id number] Suggestion: see imp Subjective Subjective: see imp Objective Last 24 Hrs of Vital Signs/I&O Vital Signs Date Time Temp Pulse Resp B/P B/P Pulse O2 O2 Flow FiO2 Mean Ox Delivery Rate 08/24 0859 14 132/68 08/24 0858 74 132/68 08/24 0814 Room Air Room Air 08/24 0548 98.9 62 20 122/68 94 Room Air 08/23 2150 98.2 83 18 118/58 94 08/23 2020 83 118/58 08/23 1434 98.4 77 18 124/78 94 Intake & Output 08/24 1600 08/24 0800 08/24 0000 Intake Total 120 850 Output Total 400 450 Balance -280 400 Intake, Oral 120 850 Output, Urine 400 450
[2017-08-24 14:01] VITALS: BP 128/68
--- NOTE | 2017-08-24 16:46 | Incdntl Nt Psy ---
Incidental Note Notation: Called to bedside by nursing, Trice has tried to leave the hospital despite sitter. Dr. Cruz spoke with her and I spent some time trying to redirect her to no avail. She is very delusional, disoriented to the surroundings of the hospital (thinks [employer] and her bank are next door, a friend is going to pick her up.) and has poor judgment. Plan to sedate her with 12.5-25 mg trazodone after an EKG to check QTc (453). Nursing will put on kam. Recommend redirecting her as much as possible, maintaining sitter, and using trazodone-- only using Risperdal if absolutely necessary. Can use soft restraints if it comes to that but try to avoid long periods of time. Restraints before Risperdal. Call macaroni press operator psychiatrist with any questions overnight. JScruggsMD #[id number]
[2017-08-24 21:31] VITALS: BP 124/72
[2017-08-25 05:47] VITALS: BP 126/60
--- NOTE | 2017-08-25 07:22 | PN- Housestaff ---
See Addendum Subjective Follow-up For: AMS Subjective: Miss Carnes was seen and examined this morning. Resting comfortably in bed. Denies any issues overnight. States that she was able to get some rest and currently feels well. She has been tolerating by mouth intake well. Still unsure as to the reason why she is in hospital. She continues to have a a sitter at beside. Denies any fever, chills, nausea, vomiting since she still continues to endorse pain on the right flank although not limiting her mobility. Review of Systems Constitutional: Reports: see HPI. Objective Last 24 Hrs of Vital Signs/I&O Vital Signs Date Time Temp Pulse Resp B/P B/P Pulse O2 O2 Flow FiO2 Mean Ox Delivery Rate 08/25 0858 72 126/60 08/25 0857 72 126/60 08/25 0547 98.0 72 20 126/60 96 Room Air 08/24 2131 98.3 96 124/72 94 Room Air 08/24 2100 124/72 Intake & Output 08/25 1600 08/25 0800 08/25 0000 Intake Total 650 120 240 Output Total 350 Balance 300 120 240 Intake, Oral 650 120 240 Number 1 Bowel Movements Output, Urine 350 Physical Exam General Appearance: Alert, Oreinted to time, and person, not place Cardiovascular: Regular Rate, Normal S1, Normal S2 Lungs: Clear to Auscultation Abdomen: Normal Bowel Sounds, Soft, No Tenderness Neurological: Normal Speech Extremities: No Clubbing, No Cyanosis, No Edema Vascular: Normal Pulses Current Medications: Current Medications Sig/Manohar Start time Last Medication Dose Route Stop Time Status Admin Acetaminophen 650 MG Q6P PRN 08/21 230 AC 08/25 PO 1131 Acetaminophen 1,000 MG Q6P PRN 08/21 2300 AC IV Amlodipine Besylate 10 MG DAILY 08/22 899 AC 08/25 PO 0857 Aspirin 81 MG DAILY 08/22 899 AC 08/25 PO 0858 Budesonide/ 2 PUF BID 08/21 2308 AC 08/25 Formoterol Fumarate INH 0859 Calcium/Vitamin D 1 TAB DAILY 08/22 899 AC 08/25 PO 0857 Carvedilol 6.25 MG BID 08/21 2306 AC 08/25 PO 0858 Clopidogrel Bisulfate 75 MG DAILY 08/22 899 AC 08/25 PO 0857 Diazepam 1 MG Q6 08/25 1200 AC 08/25 PO 1125 Diazepam 2 MG BID 08/24 2100 DC 08/24 PO 2053 Diazepam 5 MG .STK-MED ONE 08/24 2044 DC PO 08/24 2045 Diazepam 1 MG 1600 08/24 1600 DC 08/24 PO 08/24 1601 1540 Donepezil HCl 5 MG DAILY 08/23 0900 AC 08/25 PO 0857 Enoxaparin Sodium 40 MG DAILY 08/22 09 AC 08/25 SC 0857 Fenofibrate 145 MG DAILY 08/22 0900 AC 08/25 PO 0857 Ferrous Sulfate 325 MG BID 08/21 230 AC 08/25 PO 0857 Fluticasone 2 SPRAY QPM 08/22 2099 AC 08/24 Propionate HENRI 2100 Furosemide 20 MG QPM 08/22 2099 AC 08/24 PO 2054 Furosemide 40 MG DAILY 08/22 09 AC 08/25 PO 0857 Montelukast Sodium 10 MG QPM 08/22 2099 AC 08/24 PO 2054 Nitroglycerin 0.2 MG Q12 08/22 0900 AC 08/25 TOP 0858 Omeprazole 40 MG DAILY AC 08/22 0700 AC 08/25 PO 0508 Potassium Chloride 40 MEQ ONCE ONE 08/25 1045 DC 08/25 PO 08/25 1046 1122 Potassium Chloride 20 MEQ DAILY 08/22 09 AC 08/25 PO 0857 Risperidone 0.5 MG ONCE PRN 08/24 1445 DC PO 08/24 2044 Risperidone 0.25 MG DAILY 08/22 09 AC 08/25 PO 0857 Risperidone 0.5 MG QPM 08/21 2345 AC 08/24 PO 2054 Roflumilast 500 MCG DAILY 08/22 09 AC 08/25 PO 0858 Senna 374 MG AT BEDTIME 08/22 2099 AC 08/24 PO 2054 Spironolactone 25 MG DAILY 08/22 0900 AC 08/25 PO 0858 Tiotropium [place] 1 PUF DAILY 08/23 0900 AC 08/25 INH 0858 Trazodone HCl 12.5 MG ONCE PRN 08/24 1430 DC PO 08/24 2030 Trazodone HCl 25 MG AT BEDTIME NEED.. 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 She is currenlty being managed on the general medical service for the following problems. #Altered mental status #Hx Of COPD #Benzodiazepine Overuse #History of anxiety and mood disorder. #Low Vitamin D #Chronic medical problems. #Hypokalemia #Altered mental status Patient's altered mental status seems to be chronic, in gradually evolving/ worsening Continue inpatient managment Psychiatry consultation recommended: Aricept 5mg. ID consultation, recommends following the patient off antibiotics. Will monitor closely. #Benzodiazepine Overuse Originally on 2 mg TID attempting to reduce, today: 4 mg Q6. CIWA #Low Vitamin D Continue Oral Vitamin D #Chronic Medical Problems Medications reviewed with nurse Zuleyka at facility. Incentive spirometer #Hypokalemia Jeaneth due to aggressive diuresis. PO K supplemented. Will monitor BEP 08/26. Diet: Heart healthy diet with fluid restriction at 1800 ml (as in ECF, to avoid hyponatremia) DVT ppx: SQ Lovenox and ALPS Code status: Full code Problem List: 1. Delirium 2. Anxiety 3. Altered mental status Pain Ratin Pain Location: Right Flank Pain Goal: Remain pain free Pain Plan: Tylenol PRN Tomorrow's Labs & Rationales: BEP: Monitor K
--- NOTE | 2017-08-25 07:23 | Discharge Summary ---
Visit Information Visit Dates Admission Date: 08/21/17 Discharge Date: 09/01/2017 Hospital Course Course Attending Physician: Mario ESCOBAR,Roni Rizzo Primary Care Physician: Giovana ESCOBAR,Alicia Brooke 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 Vital signs at presentation: Temperature 98.5, pulse 87, respirations 18, blood pressure 153/76 she is centered T 97% on room air. Labs at presentation: WBC 7.9. H&H 12.8 and 39.3, platelets 26. Sodium 138, potassium 3.6, B1 13. Creatinine 0.7. Calcium 10.5. She was admitted to the Gen. medical service and below is a summary of the care she received under us. Please note all imaging studies that were done on this admission have been included in this report. #Altered mental status We obtained a psychiatric consult who stated that the patient has a dementia of uncertain subtype which appears to have worsened over the last year. She has varying risk factors and symptoms (h/o etoh dep, vasculopathy, visual hallucinations with restless legs and stoop, cognitive fluctuations.) No apparent mood disorder has been documented. She also has precipitously declined since June. The patient was also started on Donepezil 5 mg, which she appears to have tolerated well. Patient's B12, folate, RPR, TSH,Lyme, ESR were checked and were within normal limits. The patient does take a long-standing standing history of taking benzodiazepines she was taking Valium 2.5 mg 3 times a day. This was gradually tapered down over admission and vitals were watched closely. She was on a CIWA for signs of withdrawal. At the time of discharge her Valium was 1.0 mg 2 times a day we recommend that this medication should try to be further titrated down Risperidone was also adjusted to 1 mg BID. On 08/25/2017 the patient was very disoriented and delusional to surroundings. She appeared to have poor judgment. We subsequently checked an EKG which showed a QTC of 453 and trazodone 12.5 mg was administered to her. She did have a low vitamin D level and vitamin D has been ordered to be given. It was reported that the patient had multiple UTIs over the course of the year ( she reports 5). We obtained an infectious disease consultation recommended that the patient should be followed off antibiotics. Patient's medications for all chronic medical issues were continued. Patient was a full code during this admission. DVT prophylaxis patient was maintained on Lovenox and Alps. Allergies: Coded Allergies: tramadol (Severe, severe cant walk 06/03/16) amoxicillin (From Augmentin) (Intermediate, GI DISTRESS 06/03/16) clavulanic acid (From Augmentin) (Intermediate, GI DISTRESS 06/03/16) Pertinent Lab Results: SERVICE DATE: 08/21/17 EXAM TYPE: CAT - CT ABD & PELVIS W/O IV CONTRAS EXAMINATION: CT ABDOMEN AND PELVIS WITHOUT CONTRAST CLINICAL INFORMATION: Right flank pain. Right lower back pain. Right lower quadrant pain. COMPARISON: 10/31/2013 TECHNIQUE: Multidetector volumetric imaging was performed from the superior aspect of the liver through the pubic symphysis. Sagittal and coronal reformatted images were obtained on the technologist's workstation. DLP: 283 mGy-cm FINDINGS: LUNG BASES: There is lingular subsegmental atelectasis. Coronary artery calcifications present. LIVER, GALLBLADDER, AND BILIARY TREE: The liver is normal in size, shape, and attenuation. No focal hepatic lesion or biliary ductal dilatation is present. Cholecystectomy. PANCREAS: Unremarkable. SPLEEN: Unremarkable. ADRENAL GLANDS: Unremarkable. KIDNEYS AND URETERS: The kidneys are normal in size, shape, and attenuation. There is no hydroureteronephrosis. No renal or ureteral calculi. There is a focal calcification adjacent to the distal right ureter as seen on series 2 image 63 which is unchanged from previous and therefore not a ureteral calculus.. BLADDER: Unremarkable. GASTROINTESTINAL TRACT: The stomach is unremarkable. The small bowel is normal in caliber. There is no obstruction. Normal appendix. There is colonic diverticulosis. No evidence of diverticulitis. No wall thickening or inflammatory change. No free air. No free fluid. ABDOMINAL WALL: Small fat-containing ventral abdominal wall hernia. This is similar to previous. LYMPH NODES: Normal. VASCULAR: Normal caliber aorta with extensive atherosclerotic calcifications. Right vascular stent and bypass graft in place extending into the leg. PELVIC VISCERA: Unremarkable. OSSEOUS STRUCTURES: There is no acute or suspicious osseous abnormality. Mild degenerative changes in the spine. Mild degenerative changes in the hips. IMPRESSION: No acute findings of the abdomen or pelvis. No inflammatory changes. No hydronephrosis or nephrolithiasis. Normal appendix. Colonic diverticulosis without diverticulitis. DICTATED BY: Roge Breaux MD SERVICE DATE: 08/21/17 EXAM TYPE: CAT - CT HEAD WO IV CONTRAST EXAMINATION: CT HEAD WITHOUT CONTRAST CLINICAL INFORMATION: Hallucinations and altered mental status. COMPARISON: CT scan of the head 02/13/2017. TECHNIQUE: Contiguous axial imaging was performed from the skull base to vertex without intravenous administration of contrast. DLP: 615.81 mGy-cm FINDINGS: There is no evidence of acute intracranial hemorrhage or territorial infarction. No abnormal mass effect or midline shift is seen. Carranza to white matter differentiation is well preserved. No extra-axial fluid collections are identified. There is mild commensurate prominence of the ventricles and sulci consistent with volume loss. The study redemonstrates patchy areas of low attenuation in the periventricular and subcortical white matter, consistent with chronic microvascular ischemic changes. There are atheromatous calcifications of the cavernous internal carotid arteries. There have been bilateral lens extractions. The soft tissues are unremarkable. There are no acute osseous findings. The mastoid air cells and visualized portions of the paranasal sinuses are well aerated. IMPRESSION: 1. There are no acute bleeds or territorial infarcts. No masses are demonstrated. 2. There is mild diffuse volume loss and there are chronic microvascular ischemic changes. DICTATED BY: Casey Rod MD SERVICE DATE: 08/21/17 EXAM TYPE: RAD - XRY-PORTABLE CHEST XRAY EXAMINATION: XR PORTABLE CHEST CLINICAL INFORMATION: Altered mental status COMPARISON: 08/25/2016 TECHNIQUE: Portable frontal view of the chest was obtained. FINDINGS: Median sternotomy wires appear intact. Clips noted in the left upper quadrant. The lungs are well expanded. There is no consolidation, edema, or effusion. Minimal thorax. The cardiomediastinal silhouette is normal in size with a calcified aorta. IMPRESSION: No acute pulmonary finding. DICTATED BY: Roge Breaux MD SERVICE DATE: 08/22/17- EXAM TYPE: US - US-RENAL/KIDNEY EXAMINATION: US RETROPERITONEAL COMPLETE (RENAL) CLINICAL INFORMATION: Recurrent UTI (5 in the past year). CVA tenderness on the right side. Rule out acute pathology. COMPARISON: CT scan of the abdomen and pelvis dated 08/21/2017. TECHNIQUE: Real-time imaging of the kidneys and bladder. FINDINGS: RIGHT KIDNEY: 10.2 x 4.6 x 4.5 cm (SAG x AP x TRV). The kidney is normal in size, contour, and echogenicity. Renal cortical thickness is normal. No calculi or focal parenchymal lesions. No hydronephrosis. LEFT KIDNEY: 9.8 x 4.7 x 3.9 cm (SAG x AP x TRV). The kidney is normal in size, contour, and echogenicity. Renal cortical thickness is normal. No calculi or focal parenchymal lesions. No hydronephrosis. BLADDER: Well-distended and normal. Bilateral ureteral jets are demonstrated. Prevoid bladder volume is 353 mL. Postvoid bladder volume could not be assessed as the patient is unable to void. IMPRESSION: 1. Normal kidneys. 2. Normal bladder. Please note, however, the patient was unable to void and post void residual could therefore not be obtained. DICTATED BY: Enoch ESCOBAR,Trina Abbasi Disposition Summary Disposition Principal Diagnosis: Altered mental status Additional Diagnosis: Delirium Anxiety Discharge Disposition: SNF Discharge Instructions General Discharge Information Code Status: Full Code Patient's Diet: Heart Healthy Patient's Activity: As Tolerated Follow-Up Instructions/Appts: Please follow up with your PCP within 7 seven days. Please Have your PCP conduct a careful medication reconcilliation. Medications at Discharge Discharge Medications: Stop taking the following medications: Diazepam (Diazepam) 5 MG TABLET ORAL THREE TIMES DAILY Sulfamethoxazole/Trimethoprim (Bactrim 400-80 MG Tablet) 400 MG-80 MG TABLET ORAL TWICE DAILY Qty = 20 Risperidone (Risperdal) 0.25 MG TABLET ORAL DAILY Risperidone (Risperidone) 0.5 MG TABLET ORAL 4:30PM Continue taking these medications: Clopidogrel Bisulfate (Clopidogrel) 75 MG TABLET 1 Tablet ORAL DAILY Comments: Last Taken: 09/01/17 Time: 8:06 AM Budesonide/Formoterol Fumarate (Symbicort 160-4.5 Mcg Inhaler) 160 MCG-4.5 MCG/ ACTUATION HFA.AER.AD 2 Puff Inhale through mouth TWICE DAILY Comments: Last Taken: 09/01/17 Time: 8:07 AM Fenofibrate Nanocrystallized (Fenofibrate) 145 MG TABLET 1 Tablet ORAL DAILY Comments: Last Taken: 09/01/17 Time: 8:06 AM Carvedilol (Coreg) 6.25 MG TABLET 1 Tablet ORAL TWICE DAILY Comments: Last Taken: 09/01/17 Time: 8:06 AM Furosemide (Lasix) 40 MG TABLET 1 Tablet ORAL DAILY Comments: Last Taken: 09/01/17 Time: 08:06 AM Nitroglycerin (Nitroglycerin Patch) 0.2 MG/HOUR PATCH.TD24 1 Patch On the skin EVERY 12 HOURS Comments: Last Taken: 09/01/17 Time: 8:07 AM Amlodipine Besylate (Norvasc) 10 MG TABLET 1 Tablet ORAL DAILY Comments: Last Taken: 09/01/17 Time: 8:06 AM Aspirin (Aspirin*) 81 MG TAB.CHEW 81 Milligram ORAL DAILY Comments: Last Taken: 09/01/17 Time: 8:06 AM Montelukast Sodium (Singulair) 10 MG TABLET 1 Tablet ORAL Every night Comments: Last Taken: 08/31/17 Time: 08:39 PM Roflumilast (Daliresp) 500 MCG TABLET 1 Tablet ORAL DAILY Comments: Last Taken: 09/01/17 Time: 8:07AM Alendronate Sodium (Alendronate Sodium) 70 MG TABLET 1 Tablet ORAL Once a Week Instructions: in the morning, at least 30 minutes before the first food, beverage, or medication of the day Comments: NOT TAKEN IN HOSPITAL Calcium Carbonate/Vitamin D3 (Calcium 600 + Vit D 800 Tab) 600 MG-800 TABLET 1 Tablet ORAL DAILY Comments: Last Taken: 09/01/17 Time: 8:05AM Citalopram Hydrobromide (Celexa) 10 MG TABLET 0.5 Tablet ORAL DAILY Comments: Last Taken: 08/26 Time: 8:34 AM Fluticasone Propionate (Fluticasone Propionate) 50 MCG/ACTUATION SPRAY.SUSP 2 Vincent Both sides of nose Every night Qty = 16 Comments: Last Taken: 08/31/17 Time: 8:39PM Sennosides (Senna) 8.6 MG TABLET 2 Tablet ORAL Every night Comments: Last Taken: 08/31/17 Time: 8:39PM Spironolactone (Aldactone) 25 MG TABLET 1 Tablet ORAL DAILY Comments: Last Taken: 09/01/17 Time: 8:06AM Ferrous Sulfate (Ferrous Sulfate) 325 MG (65 MG IRON) TABLET 1 Tablet ORAL TWICE DAILY Comments: Last Taken: 09/01/17 Time: 8:06AM Pantoprazole Sodium (Protonix) 40 MG TABLET.DR 1 Tablet ORAL DAILY Comments: NOT GIVEN IN HOSPITAL Potassium Chloride (Potassium Chloride) 20 MEQ TABLET.ER 1 Tablet ORAL DAILY Start taking the following new medications: Donepezil HCl (Aricept) 5 MG TABLET 5 Milligram ORAL DAILY Qty = 30 No Refills Risperidone (Risperdal) 1 MG TABLET 1 Tablet ORAL TWICE DAILY Qty = 30 No Refills Ergocalciferol (Vitamin D2) (Vitamin D2) 50,000 UNIT CAPSULE 1 Capsule ORAL Once a Week Qty = 4 No Refills Copies To: Giovana ESCOBAR,Alicia Brooke; Geoff ESCOBAR,Devon Cox; Álvaro ESCOBAR, Debbi Attending MD Review Statement Documenting Attending: Mario ESCOBAR,Roni Rizzo Other Findings: I saw this patient on the day of discharge and agree with the plan of care. To go to [facility] in [facility] [place].
[2017-08-25] MEDS ORDERED: FUROSEMIDE20 M1 PO (07:26)
[2017-08-25] MEDS ORDERED: ARICEPT5 M1 PO (07:26)
[2017-08-25 09:05] LABS: ABSOLUTE BASOPHIL COUNT 0 /CUMM (0.0-0.2); ABSOLUTE EOSINOPHIL COUNT 0.1 /CUMM (0.0-0.7); ABSOLUTE GRANULOCYTE CT 6.3 /CUMM (1.4-6.5); ABSOLUTE LYMPH COUNT 1.1 /CUMM (1.2-3.4); ABSOLUTE MONOCYTE COUNT 0.7 /CUMM (0.10-0.60); BASOPHIL % 0.3 % (0.0-2.0); EOSINOPHIL % 0.9 % (0-5); GRANULOCYTE % 76.6 % (42.2-75.2); HEMATOCRIT 34.1 % (37-47); MEAN CORPUSCULAR HGB 30.7 PG (27.0-31.0); MEAN CORPUSCULAR HGB CONC 33.8 G/DL (33.0-37.0); MEAN CORPUSCULAR VOLUME 90.8 FL (81.0-99.0); MEAN PLATELET VOLUME 9.5 FL (7.4-10.4); PLATELET COUNT 247 /CUMM (130-400); RBC DISTRIBUTION WIDTH 14.5 % (11.5-14.5); RED BLOOD CELL CT 3.76 /CUMM (4.20-5.40); WHITE BLOOD CELL COUNT 8.2 /CUMM (4.8-10.8)
[2017-08-25] MEDS ORDERED: VITAMIN D250000 UNIT PO (10:35)
[2017-08-25] MEDS ORDERED: DIAZEPAM2 M1 PO ×2 (10:36→13:39)
[2017-08-25 22:29] VITALS: BP 140/78
[2017-08-26 06:27] VITALS: BP 126/62
[2017-08-26 14:41] VITALS: BP 126/65
--- NOTE | 2017-08-26 15:55 | PN- Att Addend ---
Assessment/Plan Assessment/Plan 76 y/o F with PMH of COPD with FEV1 0.6L, femoral/iliac bypass graft, prev, lung nodule on previous CT with unremarkable follow-up PET scan, CAD s/p CABG/stent placement, dipyridamole stress test on 11/23/15 indeterminate, HTN, HLD, anxiety, depression and recent hip fracture was BIBA from [facility] for new onset AMS with paranoid behavior and hallucinations over the last few months with recent worsening. Overnight- pt did not sleep well and is sleeping during the day now. Altered mental status secondary to dementia with behavioral changes Patient's altered mental status seems to be chronic, in gradually evolving/ worsening Continue inpatient managment Psychiatry consultation recommended: Aricept 5mg. ID consultation, recommends following the patient off antibiotics. Will monitor closely. Benzodiazepine Overuse Originally on 2 mg TID attempting to reduce, Cont to wean off slowly to avoid withdrawls. Consult Acknowledgment - Thank you for your consult request. Review of Systems Review of Systems: unable to obtain due to mental status. Review of Systems Constitutional: Denies: see HPI (unable to obtain due to mental). PHYSICAL EXAM Last 24hrs of Vital Signs Vital Signs Date Time Temp Pulse Resp B/P B/P Pulse O2 O2 Flow FiO2 Mean Ox Delivery Rate 08/26 1441 98.3 76 18 126/65 98 Room Air 08/26 0818 80 126/62 08/26 0818 80 126/62 08/26 0627 98.5 80 20 126/62 93 08/25 2229 98.1 98 18 140/78 94 08/25 2137 74 130/64 Physical Exam General Appearance No Acute Distress Cardiovascular Regular Rate, Normal S1, Normal S2 Lungs Clear to Auscultation, Normal Air Movement Abdomen Soft, No Tenderness Neurological unable to assess due to mental status ITS Data CXR Results No acute pulmonary finding. Other Results Head CT: 1. There are no acute bleeds or territorial infarcts. No masses are demonstrated. 2. There is mild diffuse volume loss and there are chronic microvascular ischemic changes. Abd CT: No acute findings of the abdomen or pelvis. No inflammatory changes. No hydronephrosis or nephrolithiasis. Normal appendix. Colonic diverticulosis without diverticulitis.
[2017-08-26 21:05] VITALS: BP 120/60
[2017-08-27 06:38] VITALS: BP 150/72
[2017-08-27 08:00] VITALS: BP 150/72
[2017-08-27 08:32] LABS: ABSOLUTE BASOPHIL COUNT 0 /CUMM (0.0-0.2); ABSOLUTE EOSINOPHIL COUNT 0.1 /CUMM (0.0-0.7); ABSOLUTE GRANULOCYTE CT 4.7 /CUMM (1.4-6.5); ABSOLUTE LYMPH COUNT 1.2 /CUMM (1.2-3.4); ABSOLUTE MONOCYTE COUNT 0.5 /CUMM (0.10-0.60); BASOPHIL % 0.4 % (0.0-2.0); EOSINOPHIL % 1.7 % (0-5); GRANULOCYTE % 71.8 % (42.2-75.2); HEMATOCRIT 32.4 % (37-47); MEAN CORPUSCULAR HGB 30.8 PG (27.0-31.0); MEAN CORPUSCULAR HGB CONC 33.7 G/DL (33.0-37.0); MEAN CORPUSCULAR VOLUME 91.4 FL (81.0-99.0); MEAN PLATELET VOLUME 9.5 FL (7.4-10.4); PLATELET COUNT 244 /CUMM (130-400); RBC DISTRIBUTION WIDTH 14.4 % (11.5-14.5); RED BLOOD CELL CT 3.54 /CUMM (4.20-5.40); WHITE BLOOD CELL COUNT 6.5 /CUMM (4.8-10.8)
--- NOTE | 2017-08-27 10:30 | PN- Housestaff ---
Subjective Follow-up For: Deliruim/Dementia Assessment/Plan Assessment: Ms Wilhelm is a 76 y/o lady w/ a PMH terminal COPD with FEV1 0.6L, femoral/ iliac bypass graft, prev, lung nodule on previous CT with unremarkable follow-up PET scan, CAD s/p CABG/stent placement, dipyridamole stress test on 11/23/15 indeterminate, HTN, HLD, anxiety, depression and recent hip fracture was BIBA from [facility] for new onset altered mentation. She is currenlty being managed on the general medical service for the following problems. #Altered mental status #Hx Of COPD #Benzodiazepine Overuse #History of anxiety and mood disorder. #Low Vitamin D #Chronic medical problems. #Altered mental status Patient's altered mental status seems to be chronic, in gradually evolving/ worsening Continue inpatient managment Psychiatry consultation recommended: Aricept 5mg. ID consultation, recommends following the patient off antibiotics. Will monitor closely. #Benzodiazepine Overuse Currently on 2 mg TID. Will Attempt to Titrate down, 2 mg BID and 1 mg at 1600, total 5 mg, Will reduce to 4 mg tomorrow, if not signs of withdrawal. #Low Vitamin D Continue Oral Vitamin D #Chronic Medical Problems Medications reviewed with nurse Zuleyka at facility. Incentive spirometer Diet: Heart healthy diet with fluid restriction at 1800 ml (as in ECF, to avoid hyponatremia) DVT ppx: SQ Lovenox and ALPS
--- NOTE | 2017-08-27 14:16 | PN- Att Addend ---
Assessment/Plan Assessment/Plan 76 y/o F with PMH of COPD with FEV1 0.6L, femoral/iliac bypass graft, prev, lung nodule on previous CT with unremarkable follow-up PET scan, CAD s/p CABG/stent placement, dipyridamole stress test on 11/23/15 indeterminate, HTN, HLD, anxiety, depression and recent hip fracture was BIBA from [facility] for new onset AMS with paranoid behavior and hallucinations over the last few months with recent worsening. Overnight- pt did not sleep well and is sleeping during the day now. Altered mental status secondary to dementia with behavioral changes Patient's altered mental status seems to be chronic, in gradually evolving/ worsening Continue inpatient managment Psychiatry consultation recommended: Aricept 5mg. ? UTI- ID consultation, recommends following the patient off antibiotics. Will monitor closely. Staying aferbrile. Chronic Benzodiazepine use Originally on 2 mg TID attempting to reduce, Cont to wean off slowly to avoid withdrawls. Will change dose to 1mg po q8h from today. Consult Acknowledgment - Thank you for your consult request. Review of Systems Review of Systems Constitutional: Denies: chills, fever. Cardiovascular: Denies: chest pain. Respiratory: Denies: cough, short of breath. GI: Denies: abdominal pain. Musculoskeletal: Reports: back pain. PHYSICAL EXAM Last 24hrs of Vital Signs Vital Signs Date Time Temp Pulse Resp B/P B/P Pulse O2 O2 Flow FiO2 Mean Ox Delivery Rate 08/27 0806 74 150/72 05/ 0806 74 150/72 08/27 0800 98.2 74 20 150/72 05/ 0800 92 Room Air 08/27 0638 98.2 74 20 150/72 92 08/26 2105 97.7 66 20 120/60 94 Room Air 08/26 2046 68 120/60 08/26 1441 98.3 76 18 126/65 98 Room Air Physical Exam General Appearance Alert, No Acute Distress HEENT Atraumatic Cardiovascular Regular Rate, Normal S1, Normal S2 Lungs Clear to Auscultation Abdomen Soft, No Tenderness Neurological Normal Speech ITS Data CXR Results No acute pulmonary finding. Other Results Head CT: 1. There are no acute bleeds or territorial infarcts. No masses are demonstrated. 2. There is mild diffuse volume loss and there are chronic microvascular ischemic changes. Abd CT: No acute findings of the abdomen or pelvis. No inflammatory changes. No hydronephrosis or nephrolithiasis. Normal appendix. Colonic diverticulosis without diverticulitis.
[2017-08-27 14:55] VITALS: BP 116/72
[2017-08-27 16:00] VITALS: BP 116/72
[2017-08-27 21:25] VITALS: BP 128/62
[2017-08-28 06:57] VITALS: BP 132/80
--- NOTE | 2017-08-28 07:20 | PN- Housestaff ---
Anthony ESCOBAR,[facility] 08/28/17 0720: Subjective Follow-up For: Delirium/Demetia Subjective: Ms Wilhelm was seen and examined this morning. She is resting comfortably in bed. Denies any issues overnight. This morning, she is alert and answers questions appropriately although states that she feels like she's been kidnapped. States that she is currently scheduled to go to the [facility] later this afternoon. Currently has a sitter in place. Has been tolerating by mouth intake well. Denies any other complaints. Review of Systems Constitutional: Reports: see HPI. Objective Last 24 Hrs of Vital Signs/I&O Vital Signs Date Time Temp Pulse Resp B/P B/P Pulse O2 O2 Flow FiO2 Mean Ox Delivery Rate 08/28 08 80 132/80 08/28 08 80 132/80 08/28 0657 98.7 80 20 132/80 92 Room Air 08/27 2125 98.6 61 18 128/62 94 Room Air 08/27 2046 125/62 08/27 1600 99.0 72 19 116/72 08/27 1455 99.0 72 19 11672 96 Room Air Intake & Output 08/28 1600 08/28 0800 08/28 0000 Intake Total 120 120 Output Total Balance 120 120 Intake, Oral 120 120 Physical Exam General Appearance: Alert, Oriented X3, Cooperative Skin: No Rashes Cardiovascular: Regular Rate, Normal S1, Normal S2 Lungs: Clear to Auscultation Abdomen: Normal Bowel Sounds, Soft, No Tenderness Neurological: Normal Speech Extremities: No Edema Current Medications: Current Medications Sig/Manohar Start time Last Medication Dose Route Stop Time Status Admin Acetaminophen 650 MG Q6P PRN 08/21 2299 AC 08/26 PO 1721 Acetaminophen 1,000 MG Q6P PRN 08/21 230 AC IV Amlodipine Besylate 10 MG DAILY 08/22 899 AC 08/28 PO 0828 Aspirin 81 MG DAILY 08/22 899 AC 08/28 PO 08 Budesonide/ 2 PUF BID 08/21 2308 AC 08/28 Formoterol Fumarate INH 0828 Calcium/Vitamin D 1 TAB DAILY 08/22 899 AC 08/28 PO 08 Carvedilol 6.25 MG BID 08/21 2306 AC 08/28 PO 08 Clopidogrel Bisulfate 75 MG DAILY 08/22 899 AC 08/28 PO 0827 Diazepam 1 MG Q8 08/27 2199 AC 08/28 PO 0525 Diazepam 1 MG Q6 08/25 1200 DC 08/27 PO 1151 Donepezil HCl 5 MG DAILY 08/23 09 AC 08/28 PO 0828 Enoxaparin Sodium 40 MG DAILY 08/22 09 AC 08/28 SC 0828 Fenofibrate 145 MG DAILY 08/22 09 AC 08/28 PO 0827 Ferrous Sulfate 325 MG BID 08/21 230 AC 08/28 PO 0827 Fluticasone 2 SPRAY QPM 08/22 2099 AC 08/27 Propionate HENRI 2046 Furosemide 20 MG QPM 08/22 2099 AC 08/27 PO 204 Furosemide 40 MG DAILY 08/22 09 AC 08/28 PO 0828 Montelukast Sodium 10 MG QPM 08/22 2099 AC 08/27 PO 204 Nitroglycerin 0.2 MG Q12 08/22 09 AC 08/28 TOP 0828 Omeprazole 40 MG DAILY AC 08/22 07 AC 08/28 PO 0525 Potassium Chloride 20 MEQ DAILY 08/22 09 AC 08/28 PO 0827 Risperidone 0.25 MG DAILY 08/22 09 AC 08/28 PO 0828 Risperidone 0.5 MG QPM 08/21 2345 AC 08/27 PO 204 Roflumilast 500 MCG DAILY 08/22 09 AC 08/28 PO 0828 Senna 374 MG AT BEDTIME 08/22 2099 AC 08/27 PO 204 Spironolactone 25 MG DAILY 08/22 09 AC 08/28 PO 0829 Tiotropium [place] 1 PUF DAILY 08/23 09 AC 08/28 INH 0828 Trazodone HCl 25 MG AT BEDTIME NEED.. 08/24 1430 AC PO Last 24 Hrs of Lab/Hernandez Results Last 24 Hrs of Labs/Mics: Laboratory Tests 08/28/17 0655: Anion Gap 11, Estimated GFR > 60, BUN/Creatinine Ratio 22.5, CBC w Diff NO MAN DIFF REQ, RBC 3.83 L, MCV 91.3, MCH 30.4, MCHC 33.3, RDW 14.4, MPV 9.4, Gran % 70.5, Lymphocytes % 19.1 L, Monocytes % 9.0, Eosinophils % 1.0, Basophils % 0.4 , Absolute Granulocytes 5.0, Absolute Lymphocytes 1.4, Absolute Monocytes 0.6, Absolute Eosinophils 0.1, Absolute Basophils 0 Assessment/Plan Assessment: Ms Wilhelm is a 76 y/o lady w/ a PMH terminal COPD with FEV1 0.6L, femoral/ iliac bypass graft, prev, lung nodule on previous CT with unremarkable follow-up PET scan, CAD s/p CABG/stent placement, dipyridamole stress test on 11/23/15 indeterminate, HTN, HLD, anxiety, depression and recent hip fracture was BIBA from [facility] for new onset altered mentation. She is currenlty being managed on the general medical service for the following problems. #Altered mental status #Hx Of COPD #Benzodiazepine Overuse #History of anxiety and mood disorder. #Low Vitamin D #Chronic medical problems. #Hypokalemia #Altered mental status Patient's altered mental status seems to be chronic, in gradually evolving/ worsening Continue inpatient managment, currently awaiting disposition plans after application to [facility] was declined. Psychiatry consultation recommended: Aricept 5mg. ID consultation, recommends following the patient off antibiotics. Will monitor closely. #Benzodiazepine Overuse Originally on 2 mg TID attempting to reduce, this has been titrated down to 1 mg TID over the weekend. CIWA: 0,0,4,0,0 #Low Vitamin D Continue Oral Vitamin D #Chronic Medical Problems Medications reviewed with nurse Zuleyka at facility. Incentive spirometer #Hypokalemia Likely due to aggressive diuresis. PO K supplemented. Will maintain a goal of 4.0 Diet: Heart healthy diet with fluid restriction at 1800 ml (as in ECF, to avoid hyponatremia) DVT ppx: SQ Lovenox and ALPS Problem List: 1. Delirium 2. Altered mental status Pain Ratin Pain Location: No Pain Pain Goal: Remain pain free Pain Plan: Tylenol Tomorrow's Labs & Rationales: No Labs Roni Martin 08/28/17 1411: Attending MD Review Statement Attending Statement Attending MD Statement: examined this patient, discuss w/resident/PA/PARTS ORDER AND STOCK CLERK, agreed w/resident/PA/PARTS ORDER AND STOCK CLERK, reviewed EMR data (avail), discussed with nursing, discussed with case mgmt Attending Assessment/Plan: Pt seen and examined at bedside. D/w pt the care plan. Case management is working on placement.
[2017-08-28 08:18] LABS: ABSOLUTE BASOPHIL COUNT 0 /CUMM (0.0-0.2); ABSOLUTE EOSINOPHIL COUNT 0.1 /CUMM (0.0-0.7); ABSOLUTE LYMPH COUNT 1.4 /CUMM (1.2-3.4); ABSOLUTE MONOCYTE COUNT 0.6 /CUMM (0.10-0.60); BASOPHIL % 0.4 % (0.0-2.0); GRANULOCYTE % 70.5 % (42.2-75.2); MEAN CORPUSCULAR HGB 30.4 PG (27.0-31.0); MEAN CORPUSCULAR HGB CONC 33.3 G/DL (33.0-37.0); MEAN CORPUSCULAR VOLUME 91.3 FL (81.0-99.0); MEAN PLATELET VOLUME 9.4 FL (7.4-10.4); PLATELET COUNT 296 /CUMM (130-400); RBC DISTRIBUTION WIDTH 14.4 % (11.5-14.5); RED BLOOD CELL CT 3.83 /CUMM (4.20-5.40); WHITE BLOOD CELL COUNT 7.1 /CUMM (4.8-10.8)
[2017-08-28 14:11] VITALS: BP 112/59
--- NOTE | 2017-08-28 17:14 | Incdntl Nt Psy ---
Incidental Note Notation: Re: Benzo taper Would decrease diazepam to 0.5 mg qAm 0.5 mg qPM 1 mg qHS Monitor vitals/CIWA Re: psychosis Would increase Risperdal to 0.5 mg BID
[2017-08-28 21:17] VITALS: BP 130/58
[2017-08-29 07:02] VITALS: BP 126/64
--- NOTE | 2017-08-29 07:21 | PN- Housestaff ---
Anthony ESCOBAR,[facility] 08/29/17 0720: Subjective Follow-up For: Deliruim Subjective: Mrs. Wilhelm was seen and examined this morning. Denies any issues overnight. States that she was able to get some rest. Has been tolerating by mouth intake well. Sitter present at bedside. Review of Systems Constitutional: Reports: see HPI. Objective Last 24 Hrs of Vital Signs/I&O Vital Signs Date Time Temp Pulse Resp B/P B/P Pulse O2 O2 Flow FiO2 Mean Ox Delivery Rate 08/29 0843 91 126/64 08/29 0842 91 126/64 08/29 0800 97.9 91 20 126/64 08/29 0702 97.9 91 20 126/64 92 08/28 2116 97.8 72 130/58 96 Room Air 08/29 2111 72 130/58 Intake & Output 08/29 1600 08/29 0800 08/29 0000 Intake Total 480 460 Output Total 320 Balance 480 140 Intake, IV 0 10 Intake, Oral 480 450 Number 0 0 Bowel Movements Output, Urine 320 Physical Exam General Appearance: Alert, Cooperative, No Acute Distress Lymphatic: Cervical nl Cardiovascular: Regular Rate, Normal S1, Normal S2 Lungs: Clear to Auscultation Abdomen: Normal Bowel Sounds, Soft, No Tenderness Neurological: Normal Speech, Strength at 5/5 X4 Ext Extremities: No Edema Vascular: Normal Pulses Current Medications: Current Medications Sig/Manohar Start time Last Medication Dose Route Stop Time Status Admin Acetaminophen 650 MG Q6P PRN 08/21 2299 AC 08/28 PO 1357 Acetaminophen 1,000 MG Q6P PRN 08/21 2299 AC IV Amlodipine Besylate 10 MG DAILY 08/22 899 AC 08/29 PO 0842 Aspirin 81 MG DAILY 08/22 899 AC 08/29 PO 0843 Budesonide/ 2 PUF BID 08/21 2308 AC 08/29 Formoterol Fumarate INH 0842 Calcium/Vitamin D 1 TAB DAILY 08/22 899 AC 08/29 PO 0843 Carvedilol 6.25 MG BID 08/21 2306 AC 08/29 PO 0843 Clopidogrel Bisulfate 75 MG DAILY 08/22 899 AC 08/29 PO 0842 Diazepam 1 MG Q12 08/29 899 AC 08/29 PO 0841 Diazepam 1 MG Q8 08/27 2199 DC 08/28 PO 2115 Donepezil HCl 5 MG DAILY 08/23 09 AC 08/29 PO 0843 Enoxaparin Sodium 40 MG DAILY 08/22 899 AC 08/29 SC 0841 Fenofibrate 145 MG DAILY 08/22 09 AC 08/29 PO 0842 Ferrous Sulfate 325 MG BID 08/21 2309 AC 08/29 PO 0843 Fluticasone 2 SPRAY QPM 08/22 2099 AC 08/28 Propionate HENRI 3 Furosemide 20 MG QPM 08/22 2099 AC 08/28 PO 2113 Furosemide 40 MG DAILY 08/22 09 AC 08/29 PO 0842 Montelukast Sodium 10 MG QPM 08/22 2099 AC 08/28 PO 2114 Nitroglycerin 0.2 MG Q12 08/22 899 AC 08/29 TOP 0842 Omeprazole 40 MG DAILY AC 08/22 07 AC 08/29 PO 0559 Potassium Chloride 20 MEQ .STK-MED ONE 08/28 1747 DC PO 08/28 1748 Potassium Chloride 20 MEQ DAILY 08/22 899 AC 08/29 PO 0842 Risperidone 0.5 MG BID 08/29 09 AC 08/29 PO 0842 Risperidone 0.25 MG DAILY 08/22 0900 DC 08/28 PO 0828 Risperidone 0.5 MG QPM 08/21 2345 AC 08/28 PO 2116 Roflumilast 500 MCG DAILY 08/22 899 AC 08/29 PO 0841 Senna 374 MG AT BEDTIME 08/22 2099 AC 08/28 PO 2114 Spironolactone 25 MG DAILY 08/22 09 AC 08/29 PO 0843 Tiotropium [place] 1 PUF DAILY 08/23 09 AC 08/29 INH 0854 Trazodone HCl 25 MG AT BEDTIME NEED.. 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 She is currenlty being managed on the general medical service for the following problems. #Altered mental status #Hx Of COPD #Benzodiazepine Overuse #History of anxiety and mood disorder. #Low Vitamin D #Chronic medical problems. #Hypokalemia #Altered mental status Patient's altered mental status seems to be chronic, in gradually evolving/ worsening Continue inpatient managment, currently awaiting disposition plans after application to [facility] was declined. Psychiatry consultation recommended: Aricept 5mg. ID consultation, recommends following the patient off antibiotics. Will monitor closely. #Benzodiazepine Overuse Originally on 2 mg TID attempting to reduce, this has been titrated down to 1 mg BID since yesterday. CIWA: 0,0,0,0,0 #Low Vitamin D Continue Oral Vitamin D #Chronic Medical Problems Medications reviewed with nurse Zuleyka at facility. Incentive spirometer #Hypokalemia Will repeat a BEP on 08/30 Likely due to aggressive diuresis. PO K supplemented. Will maintain a goal of 4.0 Diet: Heart healthy diet with fluid restriction at 1800 ml (as in ECF, to avoid hyponatremia) DVT ppx: SQ Lovenox and ALPS Problem List: 1. Anxiety 2. Delirium 3. Altered mental status Pain Ratin Pain Location: No Pain endorsed Pain Goal: Remain pain free Pain Plan: Tylenol PRN Tomorrow's Labs & Rationales: BEP: Monitor K Roni Martin 08/29/17 1112: Attending MD Review Statement Attending Statement Attending MD Statement: examined this patient, discuss w/resident/PA/SOCIAL STUDIES DEPARTMENT CHAIR, agreed w/resident/PA/SOCIAL STUDIES DEPARTMENT CHAIR, reviewed EMR data (avail), discussed with case mgmt Attending Assessment/Plan: d/w psychiatry the care plan. Her risperidone was increased . Psychiatry and case management working on getting her a place at skilled facility where she can be managed for her dementia with psychosis features. d/w pt the care plan.
[2017-08-29 08:00] VITALS: BP 126/64
[2017-08-29] MEDS ORDERED: RISPERIDONE0.5 M1 PO (09:07)
[2017-08-29] MEDS ORDERED: DIAZEPAM2 M1 PO (09:07)
[2017-08-29 14:46] VITALS: BP 136/70
[2017-08-29 16:00] VITALS: BP 136/70
[2017-08-29 21:01] VITALS: BP 142/78
[2017-08-30 06:25] VITALS: BP 138/68
--- NOTE | 2017-08-30 07:45 | PN- Housestaff ---
Teresa Hernandez 08/30/17 0745: Subjective Follow-up For: delirium Complaints: no complaints Subjective: i have seen and examined the patient today morning. no new complaints. Review of Systems Constitutional: Reports: see HPI. Objective Last 24 Hrs of Vital Signs/I&O Vital Signs Date Time Temp Pulse Resp B/P B/P Pulse O2 O2 Flow FiO2 Mean Ox Delivery Rate 08/30 1405 98.9 92 18 131/72 95 Room Air 08/30 0852 80 132/72 08/30 0852 80 132/72 08/30 0800 94 Room Air 08/30 0625 98.4 62 18 138/68 94 Room Air 08/29 2101 97.9 78 18 142/78 94 Room Air 08/29 2035 78 142/78 Intake & Output 08/30 1600 08/30 0800 08/30 0000 Intake Total 800 240 Output Total Balance 800 240 Intake, IV 0 Intake, Oral 800 240 Number 0 Bowel Movements Physical Exam General Appearance: Alert, Oriented X3, Cooperative, No Acute Distress HEENT: Atraumatic, PERRLA, EOMI Neck: Supple, No JVD Cardiovascular: Regular Rate, Normal S1, Normal S2, No Murmurs Lungs: Clear to Auscultation, Normal Air Movement Abdomen: Normal Bowel Sounds, Soft, No Tenderness Neurological: Normal Speech, Strength at 5/5 X4 Ext, Normal Tone Extremities: No Clubbing, No Cyanosis, No Edema, Normal Pulses Vascular: Normal Pulses Assessment/Plan Assessment: Ms Wilhelm is a 76 y/o lady w/ a PMH 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 She is currently being managed on the general medical service for the following problems. #Altered mental status - [persisting threat to self and others - pending gerispych consult] #Hx Of COPD #Benzodiazepine Overuse #History of anxiety and mood disorder. #Low Vitamin D #Chronic medical problems. #Hypokalemia #Altered mental status Patient's altered mental status seems to be chronic, in gradually evolving/ worsening Continue inpatient management, she will need more structures monitoring as she continues to be threat to self and others. Psychiatry consultation appreciated. will increase risperidone to 1 mg #Benzodiazepine Overuse Originally on 2 mg TID attempting to reduce, this has been titrated down to 1 mg BID since yesterday. CIWA: 0,0,0,0,0 #Low Vitamin D Continue Oral Vitamin D #Chronic Medical Problems Medications reviewed with nurse Zuleyka at facility. Incentive spirometer #Hypokalemia Will repeat a BEP Likely due to aggressive diuresis. PO K supplemented. Will maintain a goal of 4.0 Diet: Heart healthy diet with fluid restriction at 1800 ml (as in ECF, to avoid hyponatremia) DVT ppx: SQ Lovenox and ALPS Problem List: 1. Hypokalemia 2. UTI (urinary tract infection) 3. Scalp hematoma 4. Forehead laceration 5. Delirium 6. Anxiety Pain Ratin Pain Location: NONE Pain Goal: Remain pain free Pain Plan: CURRENT PLAN Tomorrow's Labs & Rationales: NOT NEEDED Roni Martin 08/30/17 1137: Attending MD Review Statement Attending Statement Attending MD Statement: examined this patient, discuss w/resident/PA/GRAIN RECEIVER, agreed w/resident/PA/GRAIN RECEIVER, reviewed EMR data (avail), discussed with case mgmt Attending Assessment/Plan: Pt seen and examined at bedside. Dementia with behavioral changes- management as per psychiatry. pt cont to be delusional / paranoid with potential for harm to self and others. cont to taper her benzodiazepam and cont on risperidone per psych recommendation. Awaiting placement. dw/ case management the care plan.
[2017-08-30 14:05] VITALS: BP 131/72
--- NOTE | 2017-08-30 14:42 | PN- Psychiatry ---
Assessment/Plan Impression: Trice is a 76 y/o F who came in with a change in mental status on top of baseline dementia and was found to have a UTI which has since cleared. On several interviews, I found Trice to be disoriented and psychotic 2/2 to her dementia. Trice still exhibits multiple delusions. She believes she can leave the hospital and be picked up by friends. She has visuospatial impairments thinking the [facility]pc is next door. Trice has been delusional trying to leave the hospital despite having a sitter and becomes agitated. She still requires sitter at this time because she continues to try to wander. She believes she can go home at times forgetting that she was previously living at [facility]. Collateral: I spoke with her daughter today who states Trice is nothing like she used to be before June but she saw memory changes as early as two years ago. She has had an abrupt change in her cognition since June. "This is not my mother." She has been talking about her parents to the daughter as though they are alive. She thinks she works at the f[employer]. Daughter very concerned about her mother's having picked up a weapon at the [facility]. She is aware [facility] has denied the inpatient stay and that we have appealed this decision. On exam, Trice is in plain clothes being watched by sitter. She is oriented to self and place. Daughter is bedside. Her movements are slightly slowed. Her speech is clear but she mumbles to herself somewhat incoherently about paranoid thoughts concerning the [facility]. She becomes tearful stating she cannot feel anything. "I am numb." Affect is contricted. Her thought process is disorganized. Her thought content contains persistent delusions. Her insight and judgment are poor as she continues to beleive she is well and that her delusions reflect reality. A/ Trice is 76 year old F with an abrupt decompensation in her cognition over the past few months with a concomitant onset of severe psychosis. Despite treatment and clearing of her UTI she is persistently delusional and confused and continues to be a danger to herself and others secondary to her paranoia/ psychosis with frequent efforts to wander thinking she would be safe outside with friends to pick her up. At this time Trice requires a higher level of psychiatric care than a fpc can provide. She requires Geriatric Psychiatry inpatient care as she requires a locked unit for her safety and close monitoring for the safety of others. She is still a danger to herself and others due to the paranoid/delusional content of her thoughts driving her toward unsafe behaviors. P/ -Increase Risperdal to 1 mg BID -Liaison with [facility] for transfer when appropriate [facility] Suggestion: see imp Subjective Subjective: see imp Objective Last 24 Hrs of Vital Signs/I&O Vital Signs Date Time Temp Pulse Resp B/P B/P Pulse O2 O2 Flow FiO2 Mean Ox Delivery Rate 08/30 1405 98.9 92 18 131/72 95 Room Air 08/30 0852 80 132/72 08/30 0852 80 132/72 08/30 0800 94 Room Air 08/30 0625 98.4 62 18 138/68 94 Room Air 08/29 2101 97.9 78 18 142/78 94 Room Air 08/29 2035 78 142/78 08/29 1600 98.1 76 20 136/70 08/29 1446 98.1 76 20 136/70 95 Room Air Intake & Output 08/30 1600 08/30 0800 08/30 0000 Intake Total 800 240 Output Total Balance 800 240 Intake, IV 0 Intake, Oral 800 240 Number 0 Bowel Movements
[2017-08-30 20:33] VITALS: BP 122/78
--- NOTE | 2017-08-31 06:28 | PN- Housestaff ---
Teresa Hernandez 08/31/17 0628: Subjective Follow-up For: -delirium -psychosis -delusion disorder Complaints: no complaints Tele-Events Since Last Visit: not on tele Subjective: I have seen and examined the patient today morning. she slept well last night and didn't have any delirious/delusional episode she continue to have sitter. her vitals today morning are stable. her risperidone was increased to 1 mg bid manage psychosis better we are awaiting geripsych placement as she continues to have visuospatial delusions and can be threat to herself and others. she continues to be on benzo taper 1 mg q12. Review of Systems Constitutional: Reports: see HPI. Objective Last 24 Hrs of Vital Signs/I&O Vital Signs Date Time Temp Pulse Resp B/P B/P Pulse O2 O2 Flow FiO2 Mean Ox Delivery Rate 08/31 0644 97.7 69 20 118/74 92 08/30 2033 97.5 74 20 122/78 94 Room Air 08/30 1957 74 122/78 08/30 1405 98.9 92 18 131/72 95 Room Air 08/30 0852 80 132/72 08/30 0852 80 132/72 08/30 0800 94 Room Air Intake & Output 08/31 0800 08/31 0000 08/30 1600 Intake Total 480 1000 800 Output Total 300 Balance 180 1000 800 Intake, IV 0 Intake, Oral 480 1000 800 Number 0 Bowel Movements Output, Urine 300 Physical Exam General Appearance: Alert, Oriented X3, No Acute Distress Skin: No Rashes, No Breakdown HEENT: Atraumatic, PERRLA, EOMI Cardiovascular: Normal S1, Normal S2, No Murmurs Lungs: Clear to Auscultation, Normal Air Movement Abdomen: Normal Bowel Sounds, Soft, No Tenderness Neurological: Strength at 5/5 X4 Ext, Normal Tone, Sensation Intact, Cranial Nerves 3-12 NL, delusions - visuuspatial present Extremities: No Clubbing, No Cyanosis, No Edema, Normal Pulses Vascular: Normal Pulses Current Medications: Current Medications Sig/Manohar Start time Last Medication Dose Route Stop Time Status Admin Acetaminophen 650 MG Q6P PRN 08/210 AC 08/30 PO 2050 Acetaminophen 1,000 MG Q6P PRN 08/21 2300 AC IV Amlodipine Besylate 10 MG DAILY 08/22 0900 AC 08/30 PO 0852 Aspirin 81 MG DAILY 08/22 09 AC 08/30 PO 0852 Budesonide/ 2 PUF BID 08/21 2308 AC 08/30 Formoterol Fumarate INH 1957 Calcium/Vitamin D 1 TAB DAILY 08/22 09 AC 08/30 PO 0852 Carvedilol 6.25 MG BID 08/21 2306 AC 08/30 PO 1957 Clopidogrel Bisulfate 75 MG DAILY 08/22 09 AC 08/30 PO 0852 Diazepam 5 MG .STK-MED ONE 08/30 0845 DC PO 08/30 0846 Diazepam 1 MG Q12 08/29 09 AC 08/30 PO 1958 Donepezil HCl 5 MG DAILY 08/23 09 AC 08/30 PO 0852 Enoxaparin Sodium 40 MG DAILY 08/22 899 AC 08/30 SC 0851 Fenofibrate 145 MG DAILY 08/22 09 AC 08/30 PO 0907 Ferrous Sulfate 325 MG BID 08/21 2308 AC 08/30 PO 1957 Fluticasone 2 SPRAY QPM 08/22 2099 AC 08/30 Propionate HENRI 1957 Furosemide 20 MG QPM 08/22 2099 AC 08/30 PO 195 Furosemide 40 MG DAILY 08/22 09 AC 08/30 PO 0852 Montelukast Sodium 10 MG QPM 08/22 2100 AC 08/30 PO 195 Nitroglycerin 0.2 MG Q24 08/30 09 AC 08/30 TOP 0851 Omeprazole 40 MG DAILY AC 08/22 07 AC 08/31 PO 0525 Potassium Chloride 20 MEQ ONCE ONE 08/30 1445 DC 08/30 PO 08/30 1446 1635 Potassium Chloride 20 MEQ DAILY 08/22 09 AC 08/30 PO 0852 Risperidone 1 MG BID 08/30 2099 AC 08/30 PO 195 Risperidone 0.5 MG BID 08/29 0900 DC 08/30 PO 0853 Roflumilast 500 MCG DAILY 08/22 09 AC 08/30 PO 0852 Senna 374 MG AT BEDTIME 08/22 2099 AC 08/30 PO 195 Spironolactone 25 MG DAILY 08/22 09 AC 08/30 PO 0852 Tiotropium [place] 1 PUF DAILY 08/23 0900 AC 08/30 INH 0852 Trazodone HCl 25 MG AT BEDTIME NEED.. 08/24 1430 AC PO Last 24 Hrs of Lab/Hernandez Results Last 24 Hrs of Labs/Mics: pending Lines/Diet/Fluids Restraints: none Assessment/Plan Assessment: This is a 76-year-old female who presented to the emergency department on 2017 brought in by ambulance from [facility] with new onset altered mental status. Upon presentation, as per the history, she had been confused, forgetful , had been having delusions hallucinations and paranoia for a month prior to presentation. He was evaluated for reversible causes of delirium/delusion, urinary tract infection was considered as a possibility as she was unable to urinate for 3 days prior to presentation. Upon in detailed history from the shell shop supervisor at [facility], it was found that she has been intermittently confused and forgetful for about a year prior to presentation. She was initially started on Levaquin for treatment of a urinary tract infection and was then switched to Macrobid prior to presentation. On presentation she did not have any white count and all her labs were mostly within normal limits except potassium of 3.6 and calcium of 10.5 [address] cultures were [address]. Ct head and CT abdomen did not show any acute findings other than mild diffuse volume loss and chronic microvascular ischemia changes. Problem list along with assessment and plan # Auditory/visual hallucinations and delusions with psychosis * Most of the reversible causes of auditory/visual hallucinations and effusions were ruled out. * continue to monitor off antibiotics. * Her vitals are stable today morning. * She Does not have any evidence of infection or electrolyte abnormalities. * BEP awaited today morning. * Toxicology was positive for benzodiazepine however she is on chronic benzodiazepine therapy. * urine culture did not show any growth after 2 days. * Blood culture also did not show any growth after 5 days * Psychiatry on board, input appreciated. * Trice's presentation seems to be secondary to paranoia/psychosis, she can be a threat to herself and others, and therefore needs higher level of monitored psychiatric care. * We are awaiting placement for geriatric psychiatric inpatient care. * Continue risperidone at 1 mg twice a day. * Continue benzodiazepine taper 1 mg every 12. * In touch with [facility] for placement, approval elevated. ### Continue LL her home medications iincluding nitroglycerin 0.2 mg, trazodone 25 mg at bedtime,Spiriva and Singulair, a 620 mg every afternoon and 40 mg every morning, Aldactone 25 mg daily, fluticasone daliresp 500 mcg daily, fenofibrate 145 mg daily, calcium and vitamin D supplement, Plavix 75 mg daily, Norvasc 10 mg daily, Coreg 6.25 mg daily, Tylenol for pain management, Symbicort, iron sulfate FC heart healthy diet. Lovenox for DVT px geripsych placement awaited. Problem List: 1. Hypokalemia 2. UTI (urinary tract infection) 3. Altered mental status 4. Psychosis 5. Delirium 6. CAD (coronary artery disease) 7. Hyperlipidemia 8. History of COPD 9. Hypercalcemia Pain Ratin Pain Location: none Pain Goal: Remain pain free Pain Plan: tylenol Tomorrow's Labs & Rationales: bep Discharge Plan Discharge Disposition: STR/NH Stable for Discharge? Yes Anticipated Discharge (Day): today If Discharged Today/In 24 Hrs: enter [facility] discharge ord, W-10/discharge paper done, DC summary done, CMR done Roni Martin 08/31/17 1039: Attending MD Review Statement Attending Statement Attending MD Statement: examined this patient, discuss w/resident/PA/EMBEDDED NURSE, agreed w/resident/PA/EMBEDDED NURSE, reviewed EMR data (avail), discussed with nursing, discussed with case mgmt Attending Assessment/Plan: Appreciated pscyh input yesterday and have increased her risperidal to 1mg bid. cont to monitor closley and she still requires a sitter due concerns for her elopement and safety. cont to have delusions and at times paranoid behavior. d/w pt and case management the care plan.
[2017-08-31 06:44] VITALS: BP 118/74
[2017-08-31 08:00] VITALS: BP 140/72
[2017-08-31 14:39] VITALS: BP 110/70
--- NOTE | 2017-08-31 15:41 | Incdntl Nt Psy ---
Incidental Note Notation: Can taper her diazepam to 0.5 mg qAm and 1 mg qHS
[2017-08-31 20:40] VITALS: BP 140/80
[2017-09-01 05:38] VITALS: BP 118/76
--- NOTE | 2017-09-01 07:07 | PN- Housestaff ---
Teresa Hernandez 09/01/17 0702: Subjective Follow-up For: -delusion/pyschosis Complaints: no complaints Tele-Events Since Last Visit: no tele events Subjective: i jhonathan seen amd examined the patient today morning. Review of Systems Constitutional: Reports: see HPI. Objective Last 24 Hrs of Vital Signs/I&O Vital Signs Date Time Temp Pulse Resp B/P B/P Pulse O2 O2 Flow FiO2 Mean Ox Delivery Rate 09/01 537 97.8 74 20 118/76 98 Room Air 09/01 2039 98.0 81 18 140/80 93 Room Air 08/31 2038 81 140/80 08/31 1439 98.4 76 32 110/70 96 Room Air 08/31 0901 76 140/72 08/31 0901 76 140/72 08/31 0800 76 140/72 Intake & Output 09/01 0809/01 0000 08/31 1600 Intake Total 240 500 720 Output Total Balance 240 500 720 Intake, IV 0 Intake, Oral 240 500 720 Number 0 1 Bowel Movements Physical Exam General Appearance: Alert, Oriented X3, Cooperative, No Acute Distress HEENT: Atraumatic, PERRLA, EOMI Neck: Supple, No JVD Cardiovascular: Normal S1, Normal S2, No Murmurs Lungs: Clear to Auscultation, Normal Air Movement Abdomen: Normal Bowel Sounds, Soft, No Tenderness Neurological: Strength at 5/5 X4 Ext, Normal Tone, Sensation Intact, Cranial Nerves 3-12 NL Extremities: No Edema Current Medications: Current Medications Sig/Manohar Start time Last Medication Dose Route Stop Time Status Admin Acetaminophen 650 MG Q6P PRN 08/21 2299 AC 08/30 PO 2050 Acetaminophen 1,000 MG Q6P PRN 08/21 2299 AC IV Amlodipine Besylate 10 MG DAILY 08/22 899 AC 08/31 PO 900 Aspirin 81 MG DAILY 08/22 899 AC 08/31 PO 900 Budesonide/ 2 PUF BID 08/21 2308 AC 08/31 Formoterol Fumarate INH 2038 Calcium/Vitamin D 1 TAB DAILY 08/22 899 AC 08/31 PO 900 Carvedilol 6.25 MG BID 08/21 2306 AC 08/31 PO 2038 Clopidogrel Bisulfate 75 MG DAILY 08/22 899 AC 08/31 PO 900 Diazepam 1 MG Q24 05/25 0900 AC PO Diazepam 1 MG Q12 08/29 0900 DC 08/31 PO 0902 Donepezil HCl 5 MG DAILY 08/23 899 AC 08/31 PO 900 Enoxaparin Sodium 40 MG DAILY 08/22 899 AC 08/31 SC 900 Fenofibrate 145 MG DAILY 08/22 899 AC 08/31 PO 0900 Ferrous Sulfate 325 MG BID 08/21 2308 AC 08/31 PO 2039 Fluticasone 2 SPRAY QPM 08/22 2099 AC 08/31 Propionate HENRI 2038 Furosemide 20 MG QPM 08/22 2099 AC 08/31 PO 2039 Furosemide 40 MG DAILY 08/22 899 AC 08/31 PO 900 Montelukast Sodium 10 MG QPM 08/22 2099 AC 08/31 PO 2038 Nitroglycerin 0.2 MG Q24 08/30 899 AC 08/31 TOP 900 Omeprazole 40 MG DAILY AC 08/22 07 AC 09/01 PO 0541 Potassium Chloride 20 MEQ DAILY 08/22 899 AC 08/31 PO 09 Risperidone 1 MG BID 08/30 2099 AC 08/31 PO 2038 Roflumilast 500 MCG DAILY 08/22 899 AC 08/31 PO 900 Senna 374 MG AT BEDTIME 08/22 2099 AC 08/31 PO 2038 Spironolactone 25 MG DAILY 08/22 899 AC 08/31 PO 899 Tiotropium [place] 1 PUF DAILY 08/23 899 AC 08/31 INH 900 Trazodone HCl 25 MG AT BEDTIME NEED.. 08/24 1430 AC PO Last 24 Hrs of Lab/Hernandez Results Last 24 Hrs of Labs/Mics: Laboratory Tests 08/31/17 1356: Anion Gap 11, Estimated GFR > 60, BUN/Creatinine Ratio 27.1 H Lines/Diet/Fluids Restraints: none Assessment/Plan Assessment: This is a 76-year-old female who presented to the emergency department on 2017 brought in by ambulance from [facility] with new onset altered mental status. Upon presentation, as per the history, she had been confused, forgetful , had been having delusions hallucinations and paranoia for a month prior to presentation. He was evaluated for reversible causes of delirium/delusion, urinary tract infection was considered as a possibility as she was unable to urinate for 3 days prior to presentation. Upon in detailed history from the supervisor payroll at [facility], it was found that she has been intermittently confused and forgetful for about a year prior to presentation. She was initially started on Levaquin for treatment of a urinary tract infection and was then switched to Macrobid prior to presentation. On presentation she did not have any white count and all her labs were mostly within normal limits except potassium of 3.6 and calcium of 10.[address] were [address]. [address] head and CT abdomen did not show any acute findings other than mild diffuse volume loss and chronic microvascular ischemia changes. Problem list along with assessment and plan # Auditory/visual hallucinations and delusions with psychosis * Most of the reversible causes of auditory/visual hallucinations and effusions were ruled out. * continue to monitor off antibiotics. * Her vitals are stable today morning. * BEP stable at her baseline creatinine * Urine culture did not show any growth after 2 days. * Blood culture also did not show any growth after 5 days * Psychiatry on board, risperidone now at 1 mg bid, will continue to taper benzodiazapine with one more dose of 1 mg and then 0.5 mg. * Trice's presentation seems to be secondary to paranoia/psychosis, she can be a threat to herself and others, and therefore needs higher level of monitored psychiatric care. * We are awaiting placement for geriatric psychiatric inpatient care. * Continue risperidone at 1 mg twice a day. * Continue benzodiazepine taper. * will be discahrged today ### Continue LL her home medications iincluding nitroglycerin 0.2 mg, trazodone 25 mg at bedtime,Spiriva and Singulair, a 620 mg every afternoon and 40 mg every morning, Aldactone 25 mg daily, fluticasone daliresp 500 mcg daily, fenofibrate 145 mg daily, calcium and vitamin D supplement, Plavix 75 mg daily, Norvasc 10 mg daily, Coreg 6.25 mg daily, Tylenol for pain management, Symbicort, iron sulfate FC heart healthy diet. Lovenox for DVT px geripsych placement awaited. Problem List: 1. Psychosis 2. Hypokalemia 3. UTI (urinary tract infection) Pain Ratin Pain Location: .. Pain Goal: Remain pain free Pain Plan: tylenol Tomorrow's Labs & Rationales: not needed Discharge Plan Discharge Disposition: STR/NH Stable for Discharge? Yes Anticipated Discharge (Day): today If Discharged Today/In 24 Hrs: W-10/discharge paper done, DC summary done, CMR done Teddy Smith MD 09/01/17 1636: Attending MD Review Statement Attending Statement Attending MD Statement: examined this patient, discuss w/resident/PA/[employer] APPRENTICE, agreed w/resident/PA/[employer] APPRENTICE, reviewed EMR data (avail), discussed with nursing, discussed with case mgmt, amended to note Attending Assessment/Plan: The patient was seen and discussed with house staff, nursing, case management and psychiatry (Dr. Polk). Agree with plan to discharge to Geriatric Psychiatry for evaluation .
[2017-09-01] MEDS ORDERED: RISPERDAL1 M1 PO (08:41)
[2017-09-01 13:50] VITALS: BP 118/76
[2017-09-01 14:03] VITALS: BP 130/50
== END 2017-09-01 14:54 | disposition other institution (70) | DRG 884 ==
LOC: ERH 15:55 → 2NB 20:44 → ERHI 20:44 → 2NB 20:44 → ENRESERV 22:47 → 2NB 23:43 → ENPENDDIS 09-01 13:05 → 2NB 09-01 14:54
PROVIDERS: Internal Medicine; Physician Assistant Medical; Student in an Organized Health Care Education/Training Program
DX: F03.91 Unspecified dementia, unspecified severity, with behavioral disturbance (principal); F05 Delirium due to known physiological condition; J44.9 Chronic obstructive pulmonary disease, unspecified; E83.52 Hypercalcemia; N39.0 Urinary tract infection, site not specified; R44.0 Auditory hallucinations; B96.89 Other specified bacterial agents as the cause of diseases classified elsewhere; I73.9 Peripheral vascular disease, unspecified; I25.10 Atherosclerotic heart disease of native coronary artery without angina pectoris; I10 Essential (primary) hypertension; Z95.1 Presence of aortocoronary bypass graft; F22 Delusional disorders; F41.8 Other specified anxiety disorders; R44.1 Visual hallucinations; E55.9 Vitamin D deficiency, unspecified; T42.4X5A Adverse effect of benzodiazepines, initial encounter; E87.6 Hypokalemia
CPT/HCPCS: 2NBP; 86618; 36415; 36592; 71045; 74176; 76775; 80307; 81001; 82436; 87040; 87086; 93005; 93010; 96374; G0480; J0131; J1580; J1650; J3490